=== PATIENT | female | born 1940 | race Caucasian/White ===

== ENCOUNTER 2017-04-22 12:16 | Inpatient (IN) | payer MEDICARE, OTHER ==
[2017-04-22] VITALS (24 sets, daily range): BP systolic 105–207; BP diastolic 53–86; PULSE 57–114; RESP 14–20; TEMP 97.8–98.3; O2SAT 94–100
[~2017-04-22] VITALS: Ht 165.1 cm; Wt 93.9 kg
[2017-04-22] MEDS ORDERED: PROPOFOL 500 MG/50 ML INJ 50 ML ONE (12:26)
[2017-04-22] MEDS ORDERED: SODIUM CHLORIDE 0.9% FLUSH 10 ML FLUSH IVF PRN (12:45)
[2017-04-22] MEDS ORDERED: PROPOFOL 1000 MG/100 ML INJ 100 ML IV SCH (12:45)
[2017-04-22] MEDS ORDERED: ETOMIDATE 20 MG/10 ML VIAL IV PUSH ONE (12:45)
[2017-04-22] MEDS ORDERED: FUROSEMIDE 100 MG/10 ML VIAL IVP ONE (12:45)
[2017-04-22] MEDS ORDERED: SUCCINYLCHOLINE CHLORIDE 200 MG/10 ML VIAL IV PUSH ONE (12:45)
[2017-04-22 13:09] LABS: AUTOMATED NEUTROPHIL # 7.7 TH/MM3 (1.8-7.7); BASOPHIL # 0.1 TH/MM3 (0-0.2); BASOPHIL % 1.2 % (0.0-2.0); EOSINOPHIL # 0.4 TH/MM3 (0-0.4); EOSINOPHIL % 3.6 % (0.0-4.0); HEMATOCRIT 38.1 % (35.0-46.0); HEMO FLAGS DIFF FINAL; LYMPH % 23.6 % (9.0-44.0); LYMPHOCYTE # 2.8 TH/MM3 (1.0-4.8); MEAN CELL VOLUME 94.9 FL (80.0-100.0); MEAN CORPUSCULAR HEMOGLOBIN 29.8 PG (27.0-34.0); MEAN CORPUSCULAR HGB CONC 31.5 % (32.0-36.0); MONO % 8.1 % (0.0-8.0); NEUT % 63.5 % (16.0-70.0); PLATELET COUNT 234 TH/MM3 (150-450); RED BLOOD COUNT 4.02 MIL/MM3 (4.00-5.30); RED CELL DISTRIBUTION WIDTH 14.9 % (11.6-17.2); WHITE BLOOD COUNT 12.1 TH/MM3 (4.0-11.0)
[2017-04-22 13:15] LABS: BACTERIA, URINE RARE /hpf; BLOOD, URINE NEG (NEG); COMMENT (UR) CULT NOT INDICATED; CULTURE IF INDICATED CULT NOT INDICATED; GLUCOSE,URINE 150 mg/dL (NEG); KETONE, URINE NEG (NEG); MUCUS URINE FEW /lpf (OCC); NITRITE,URINE NEG (NEG); PH, URINE 5.5 (5.0-8.5); URINE COLOR LIGHT-YELLOW (YELLW/STRAW)
[2017-04-22 13:19] LABS: INTERNATIONAL NORMALIZED RATIO 0.9 RATIO; PROTHROMBIN TIME - PATIENT 10.4 SEC (9.8-11.6)
--- NOTE | 2017-04-22 13:19 | RADRPT ---
EXAM DATE/TIME: 04/22/2017 12:32 [facility] COMPARISON: No previous studies available for comparison. INDICATIONS : Post intubation. MEDICAL HISTORY : Smoker. SURGICAL HISTORY : None. ENCOUNTER: Initial ACUITY: 1 day PAIN SCORE: Non-responsive. LOCATION: Bilateral chest FINDINGS: Patchy airspace disease is present in both lungs. Nasogastric tube is across the GE junction. The h eart is enlarged. CONCLUSION: Cardiomegaly with moderate patchy interstitial disease. Considerations would include both cardiogeni c pulmonary edema and an inflammatory process. Nahum Lambert MD FACR on April 22, 2017 at 13:05 Board Certified Radiologist. This report was verified electronically.
[2017-04-22 13:39] LABS: BLOOD GAS BASE EXCESS -3.4 mmol/L (-2-2); BLOOD GAS CARBOXYHEMOGLOBIN 1.1 % (0-4); BLOOD GAS HCO3 23 mmol/L (22-26); BLOOD GAS METHEMOGLOBIN 0.8 % (0-2); BLOOD GAS O2 HGB SATURATION 93 % (90-100); BLOOD GAS OXYGEN CONTENT 18.9 Vol % (12.0-20.0); BLOOD GAS PCO2 52 mmHg (38-42); BLOOD GAS PO2 87 mmHG (61-120); BLOOD GAS TOTAL HGB 14.4 G/DL (12.0-16.0); CRITICAL VALUE YES; OXYGEN DEVICE VENTILATOR; TEMP CORR TO 98.6
[2017-04-22 13:40] LABS: DRAW SITE LT RADIAL; FIO2 100 %; NUMBER OF ARTERIAL PUNCTURES 1; STAT YES; ULNAR PULSE PRESENT; VENT SETTINGS 16/450/PEEP10
[2017-04-22 13:41] LABS: CREATINE KINASE 54 U/L (26-192)
--- NOTE | 2017-04-22 13:43 | PD ---
HPI Chief Complaint: Respiratory Symptoms Time Seen by Provider: 12:39 Travel History International Travel<30 days: No Contact w/Intl Traveler<30days: No Traveled to known affect area: No History of Present Illness HPI 77-year-old female came to the emergency room with history of severe respiratory distress, impending respiratory failure. Her drove her into the ER. Oxygen saturation upon arrival was 59%. Patient was quickly put on nonrebreather for oxygen delivery. She was altered mental status at this point. Her gave most of the history. I decided to intubate her initially and then the history was obtained from her . As per him patient was getting her ultrasound done and he was in the waiting room. After she finished her the ultrasound and returned she appeared ashen in color. That' s when he decided to bring her to the emergency room. She was breathing heavily. said that she has history of cardiovascular disease but he doesn't exactly what. They recently moved from [place] and she does not have all her specialists here. She does not have any lung disease either and does not require oxygen at home. They recently had a long distance trip where they covered [address]. This was just last week as per him. She has never been intubated in the past as per him. [facility] Past Medical History Narrative Medical List of her past medical, surgical, social and family history was reviewed from the nurse's note. Medical History: Unable to Obtain ?: Not Past Surgical History Surgical History: Unable to Obtain Social History Alcohol Use: Yes Tobacco Use: Yes Substance Use: No Allergies-Medications (Allergen,Severity, Reaction): Coded Allergies: No Known Allergies (Unverified , 04/22/17) Comments Unavailable Reported Meds & Prescriptions Reported Meds & Active Scripts Active Reported Lantus Inj (Insulin Glargine) 100 Unit/Ml Inj 6 Unit SQ Co Q 10 (Coenzyme Q10 (Ubidecarenone)) 100 Mg Cap 200 Mg PO DAILY Synthroid (Levothyroxine Sodium) 175 Mcg Tab 175 Mcg PO DAILY Ranexa ER 12 HR (Ranolazine) 500 Mg Tab 500 Mg PO BID Pravastatin 80 Mg Tab 80 Mg PO DAILY Onglyza (Saxagliptin) 5 Mg Tab 5 Mg PO DAILY Nitrostat SL (Nitroglycerin) 0.4 Mg Subl 0.4 Mg SL DIRECTED PRN 1 tablet under the tongue as needed for chest pain. Repeat every 5 minutes for a total of 3 DOSES or call 911 if NO relief. Methyldopa 500 Mg Tab 500 Mg PO BID Klor-Con 10 (Potassium Chloride) 10 Meq Tab 10 Meq PO DAILY Lasix (Furosemide) 40 Mg Tab 40 Mg PO DAILY Plavix (Clopidogrel Bisulfate) 75 Mg Tab 75 Mg PO DAILY Cilostazol 100 Mg Tab 100 Mg PO BID Carvedilol 12.5 Mg Tab 12.5 Mg PO BID Benazepril (Benazepril HCl) 40 Mg Tab 20 Mg PO BID Amlodipine (Amlodipine Besylate) 10 Mg Tab 10 Mg PO DAILY Narrative Medication is trying to get her medication list. Awaiting for the nurse to do the medical reconciliation. Review of Systems Except as stated in HPI: all other systems reviewed are Neg Physical Exam Narrative GENERAL: Altered mental status, significant distress SKIN: Cool and diaphoretic HEAD: Atraumatic. Normocephalic. EYES: Pupils equal and round. No scleral icterus. No injection or drainage. ENT: No nasal bleeding or discharge. Mucous membranes pink and moist. NECK: Trachea midline. No JVD. CARDIOVASCULAR: Regular rate and rhythm. No murmur appreciated. RESPIRATORY: Respiratory effort. Decreased air entry bilaterally with coarse crackles GASTROINTESTINAL: Abdomen soft, non-tender, nondistended. Hepatic and splenic margins not palpable. MUSCULOSKELETAL: No obvious deformities. No clubbing. No cyanosis. No edema. NEUROLOGICAL: GCS of 8 PSYCHIATRIC: Unable to assess Data Data Last Documented VS Vital Signs Date Time Temp Pulse Resp B/P Pulse Ox O2 Delivery O2 Flow Rate FiO2 04/22/17 13:18 79 16 158/76 95 Ventilator 04/22/17 13:18 50 04/22/17 13:00 98.3 15 Orders Chest, Single Ap (04/22/17 ) Propofol 500 Mg/50 Ml Inj (Diprivan 500 (04/22/17 12:26) Complete Blood Count With Diff (04/22/17 12:39) Basic Metabolic Panel (Bmp) (04/22/17 12:39) B-Type Natriuretic Peptide (04/22/17 12:39) Prothrombin Time / Inr (Pt) (04/22/17 12:39) Magnesium (Mg) (04/22/17 12:39) Ckmb (Isoenzyme) Profile (04/22/17 12:39) Troponin I (04/22/17 12:39) Urinalysis - C+S If Indicated (04/22/17 12:39) Blood Culture (04/22/17 12:39) Iv Access Insert/Monitor (04/22/17 12:39) Electrocardiogram (04/22/17 12:39) Ecg Monitoring (04/22/17 12:39) Oximetry (04/22/17 12:39) Oxygen Administration (04/22/17 12:39) Ct Pulmonary Angiogram (04/22/17 12:39) Sodium Chloride 0.9% Flush (Ns Flush) (04/22/17 12:45) Furosemide Inj (Lasix Inj) (04/22/17 12:45) Succinylcholine Inj (Quelicin Inj) (04/22/17 12:45) Etomidate Inj (Amidate Inj) (04/22/17 12:45) Propofol 1000 Mg/100 Ml Inj (Diprivan 10 (04/22/17 12:45) ^ Infusion (04/22/17 12:43) RASS (04/22/17 12:43) Neurological Rass Scale SOFI.Q2H (04/22/17 12:43) Arterial Blood Gas (Abg) (04/22/17 13:29) Admit Order (Ed Use Only) (04/22/17 13:40) Labs Laboratory Tests Test 04/22/17 04/22/17 04/22/17 12:20 13:00 13:29 White Blood Count 12.1 TH/MM3 Red Blood Count 4.02 MIL/MM3 Hemoglobin 12.0 GM/DL Hematocrit 38.1 % Mean Corpuscular Volume 94.9 FL Mean Corpuscular Hemoglobin 29.8 PG Mean Corpuscular Hemoglobin 31.5 % Concent Red Cell Distribution Width 14.9 % Platelet Count 234 TH/MM3 Mean Platelet Volume 7.6 FL Neutrophils (%) (Auto) 63.5 % Lymphocytes (%) (Auto) 23.6 % Monocytes (%) (Auto) 8.1 % Eosinophils (%) (Auto) 3.6 % Basophils (%) (Auto) 1.2 % Neutrophils # (Auto) 7.7 TH/MM3 Lymphocytes # (Auto) 2.8 TH/MM3 Monocytes # (Auto) 1.0 TH/MM3 Eosinophils # (Auto) 0.4 TH/MM3 Basophils # (Auto) 0.1 TH/MM3 CBC Comment DIFF FINAL Differential Comment Prothrombin Time 10.4 SEC Prothromb Time International 0.9 RATIO Ratio Sodium Level 141 MEQ/L Potassium Level 4.5 MEQ/L Chloride Level 110 MEQ/L Carbon Dioxide Level 21.7 MEQ/L Anion Gap 9 MEQ/L Blood Urea Nitrogen 26 MG/DL Creatinine 1.39 MG/DL Estimat Glomerular Filtration 37 ML/MIN Rate Random Glucose 277 MG/DL Calcium Level 9.2 MG/DL Magnesium Level 2.6 MG/DL Total Creatine Kinase 54 U/L Troponin I LESS THAN 0.02 NG/ML B-Type Natriuretic Peptide 234 PG/ML Urine Color LIGHT-YELLOW Urine Turbidity CLEAR Urine pH 5.5 Urine Specific [place] 1.007 Urine Protein 30 mg/dL Urine Glucose (UA) 150 mg/dL Urine Ketones NEG mg/dL Urine Occult Blood NEG Urine Nitrite NEG Urine Bilirubin NEG Urine Urobilinogen LESS THAN 2.0 MG/DL Urine Leukocyte Esterase NEG Urine RBC 1 /hpf Urine WBC 1 /hpf Urine Bacteria RARE /hpf Urine Mucus FEW /lpf Microscopic Urinalysis Comment CULT NOT INDICATED Blood Gas Puncture Site LT RADIAL Blood Gas Patient Temperature 98.6 Blood Gas HCO3 23 mmol/L Blood Gas Base Excess -3.4 mmol/L Blood Gas Oxygen Saturation 93 % Arterial Blood pH 7.26 Arterial Blood Partial 52 mmHg Pressure CO2 Arterial Blood Partial 87 mmHG Pressure O2 Arterial Blood Oxygen Content 18.9 Vol % Arterial Blood 1.1 % Carboxyhemoglobin Arterial Blood Methemoglobin 0.8 % Blood Gas Hemoglobin 14.4 G/DL Oxygen Delivery Device VENTILATOR Blood Gas Ventilator Setting 16/450/PEEP10 Blood Gas Inspired Oxygen 100 % [facility] Medical Decision Making Medical Screen Exam Complete: Yes Emergency Medical Condition: Yes Medical Record Reviewed: Yes Interpretation(s) Twelve-lead EKG was reviewed by me. Normal sinus rhythm, normal axis, tachycardia, nonspecific ST-T wave changes. Heart rate of 110 bpm. Differential Diagnosis Respiratory failure, CHF exacerbation, COPD exacerbation, pneumonia, PE, pulmonary edema Narrative Course 1:56 PM patient was intubated by me. Please refer to my procedure note. Chest x-ray showed significant pulmonary edema. Patient was given IV Lasix. Currently she is on a propofol drip. Blood test result shows renal insufficiency and slightly elevated BNP. Blood pressure initially was high with systolic of 210. Currently it isn't 150s. I spoke with the rod mill tender and patient has been admitted to the ICU. I spoke with the and answered all his questions to the best of my ability. Based on the first ABG I did some been setting changes. A repeat ABG has been ordered and an hour. Critical Care Narrative Aggregate critical care time was 45 minutes. Time to perform other separately billable procedures was not included in the critical care time. My time did not include minutes spent treating any other patients simultaneously or on activities that did not directly contribute to the patient's treatment. The services I provided to this patient were to treat and/or prevent clinically significant deterioration that could result in: Respiratory failure, stabilizing airway, vent management I provided critical care services requiring my management, as noted below: Chart data review, documentation time, medication orders and management, vital sign assessments/reviewing monitor data, ordering and reviewing lab tests, ordering and interpreting/reviewing x-rays and diagnostic studies, care of the patient and discussion of the patient with the admitting physicians. Procedures Procedure Narrative After the risks and benefits were discussed the following procedure was performed: INTUBATION: The patient was put in optimal position for the procedure. Rapid sequence intubation was initiated by me using 20 milligrams of etomidate IV and 100 milligrams of succinylcholine IV. The patient was intubated with a 7.5 cuffed endotracheal tube. Tube placement was confirmed by visualization of the tube and balloon passing through the cords, capnometry and subsequent chest x-ray. Breath sounds were equal and well aerated bilaterally postintubation. No breath sounds over stomach. Patient tolerated procedure well. EKG Prior to Arrival: No Physician Communication Physician Communication Dr. Valladares Diagnosis Primary Impression: Respiratory failure Qualified Code: J96.01 - Acute respiratory failure with hypoxia Additional Impression: Flash pulmonary edema Admitting Information Admitting Physician Requests: Byron Phoenix MD Apr 22, 2017 13:43
[2017-04-22 13:44] LABS: ANION GAP 9 MEQ/L (5-15); BICARBONATE 21.7 MEQ/L (21.0-32.0); BLOOD UREA NITROGEN 26 MG/DL (7-18); CHLORIDE 110 MEQ/L (98-107); GLOMERULAR FILTRATION RATE 37 ML/MIN (>89); MAGNESIUM 2.6 MG/DL (1.5-2.5); POTASSIUM 4.5 MEQ/L (3.5-5.1); SODIUM (NA) 141 MEQ/L (136-145)
[2017-04-22] MEDS ORDERED: ONDANSETRON HCL 4 MG/2 ML VIAL IV PRN (14:30)
[2017-04-22] MEDS ORDERED: IODIXANOL 320 MG/ML 50 ML VIAL (for Rad CT) IV ONE (14:30)
[2017-04-22] MEDS ORDERED: CHLORHEXIDINE GLUCONATE 2 % 1 PACK (2 CLOTHS) TOP PRN (14:30)
[2017-04-22] MEDS ORDERED: SENNOSIDES 8.6 MG TAB PO PRN (14:30)
[2017-04-22] MEDS ORDERED: MISCELLANEOUS NURSING INFORMATION XX SCH (14:30)
[2017-04-22] MEDS ORDERED: MAGNESIUM HYDROXIDE SUSP 30 ML CUP PO PRN (14:30)
[2017-04-22] MEDS ORDERED: LACTULOSE SYRUP 20 GM/30 ML CUP PO PRN (14:30)
[2017-04-22] MEDS ORDERED: SODIUM CHLORIDE 0.9% FLUSH 10 ML FLUSH IV FLUSH PRN (14:30)
[2017-04-22] MEDS ORDERED: BISACODYL 10 MG SUPP RECTAL PRN (14:30)
[2017-04-22] MEDS ORDERED: GLUCAGON 1 MG/ML VIAL OTHER PRN (14:30)
[2017-04-22] MEDS ORDERED: DEXTROSE 50% IN WATER 50 ML VIAL(D50) IV PRN (14:30)
[2017-04-22] MEDS ORDERED: RESP: ALBUTEROL 2.5 MG/IPRATROPIUM 0.5 MG NEB (PRN) INH (14:30)
--- NOTE | 2017-04-22 14:56 | HHI.HP ---
HPI Service Critical Care Medicine Primary Care Physician No Primary Care Physician Admission Diagnosis respiratory failure, pulmonary edema Diagnosis: Travel History International Travel<30 Days: No Contact w/Intl Traveler <30 Da: No Traveled to Known Affected Are: No History of Present Illness 77-year-old female presented to the ED with a H/O severe respiratory distress, impending respiratory failure. Her drove her into the ER. Oxygen saturation upon arrival was 59%. Patient was quickly put on nonrebreather and was noted to have altered mental status. The patient was intubated in the ED, and a significant shunt was noted on the ABG. Also noted during intubation the patient was noted to have a large amount of pink frothy sputum and Lasix IV 60 mg was provided. The patient's reported that the patient was scheduled and reported for a pelvic ultrasound. She was required to drink large quantity of water. and he was in the waiting room. After the completion of the ultrasound and returned she appeared ashen in color, dyspneic. The patient's decided to bring her to the emergency room. said that she has history of cardiovascular disease but he doesn't exactly what, he did report that the patient does take Lasix. They recently moved from [place] and she does not have all her specialists here. She does not have any lung disease either and does not require oxygen at home. They recently had a long distance trip where they covered [address] miles [address]. Critical care medicine was consulted for management. Upon arrival to the ED the patient's on 100% O2, O2 saturation currently 98%. Patient had received 60 mg of Lasix IV with approximately 300 cc diuresis noted in [place]. The patient was on a propofol infusion for ventilator synchrony and comfort. The patient is scheduled to go for CT angiogram to rule out pulmonary embolus. History [facility] Past Medical History Narrative Medical List of her past medical, surgical, social and family history was reviewed from the nurse's note. Medical History: Unable to Obtain ?: Not Past Surgical History Surgical History: Unable to Obtain Social History Alcohol Use: Yes Tobacco Use: Yes Substance Use: No Allergies-Medications Allergies-Medications (Allergen,Severity, Reaction): Coded Allergies: UNOBTAINABLE (Unverified , 04/22/17) Comments Unavailable Narrative Medication is trying to get her medication list. Awaiting for the nurse to do the medical reconciliation. ROS Review of Systems Except as stated in HPI: all other systems reviewed are Neg Past Family Social History Allergies: Coded Allergies: No Known Allergies (Unverified , 04/22/17) Physical Exam Vital Signs Vital Signs Date Time Temp Pulse Resp B/P Pulse Ox O2 Delivery O2 Flow Rate FiO2 04/22/17 13:45 95 100 04/22/17 13:18 79 16 158/76 95 Ventilator 04/22/17 13:18 95 Ventilator 50 04/22/17 13:00 98.3 82 16 158/79 94 Ventilator 15 50 04/22/17 12:43 50 04/22/17 12:30 95 100 04/22/17 12:28 105 16 62 Room Air 04/22/17 12:28 108 16 207/85 04/22/17 12:24 114 16 185/79 94 Physical Exam GENERAL: Critically ill-appearing female intubated and sedated. Noted pink frothy secretions in the endotracheal tube SKIN: Warm and dry. HEAD: Atraumatic. Normocephalic. EYES: Pupils equal and round. No scleral icterus. No injection or drainage. ENT: No nasal bleeding or discharge. Mucous membranes pink and moist. NECK: Trachea midline. No JVD. CARDIOVASCULAR: Normal rate, regular rhythm. RESPIRATORY: No accessory muscle use. Clear to auscultation. Breath sounds equal bilaterally. GASTROINTESTINAL: Abdomen soft, protuberant, nondistended. No guarding. OGT in situ MUSCULOSKELETAL: Extremities without clubbing, cyanosis, or edema. No obvious deformities. NEUROLOGICAL: GCS 3T. Intubated and sedated Laboratory Laboratory Tests Test 04/22/17 04/22/17 04/22/17 12:20 13:00 13:29 White Blood Count 12.1 Red Blood Count 4.02 Hemoglobin 12.0 Hematocrit 38.1 Mean Corpuscular Volume 94.9 Mean Corpuscular Hemoglobin 29.8 Mean Corpuscular Hemoglobin 31.5 Concent Red Cell Distribution Width 14.9 Platelet Count 234 Mean Platelet Volume 7.6 Neutrophils (%) (Auto) 63.5 Lymphocytes (%) (Auto) 23.6 Monocytes (%) (Auto) 8.1 Eosinophils (%) (Auto) 3.6 Basophils (%) (Auto) 1.2 Neutrophils # (Auto) 7.7 Lymphocytes # (Auto) 2.8 Monocytes # (Auto) 1.0 Eosinophils # (Auto) 0.4 Basophils # (Auto) 0.1 CBC Comment DIFF FINAL Differential Comment Prothrombin Time 10.4 Prothromb Time International 0.9 Ratio Sodium Level 141 Potassium Level 4.5 Chloride Level 110 Carbon Dioxide Level 21.7 Anion Gap 9 Blood Urea Nitrogen 26 Creatinine 1.39 Estimat Glomerular Filtration 37 Rate Random Glucose 277 Calcium Level 9.2 Magnesium Level 2.6 Total Creatine Kinase 54 Troponin I LESS THAN 0.02 B-Type Natriuretic Peptide 234 Urine Color LIGHT-YELLOW Urine Turbidity CLEAR Urine pH 5.5 Urine Specific [place] 1.007 Urine Protein 30 Urine Glucose (UA) 150 Urine Ketones NEG Urine Occult Blood NEG Urine Nitrite NEG Urine Bilirubin NEG Urine Urobilinogen LESS THAN 2.0 Urine Leukocyte Esterase NEG Urine RBC 1 Urine WBC 1 Urine Bacteria RARE Urine Mucus FEW Microscopic Urinalysis Comment CULT NOT INDICATED Blood Gas Puncture Site LT RADIAL Blood Gas Patient Temperature 98.6 Blood Gas HCO3 23 Blood Gas Base Excess -3.4 Blood Gas Oxygen Saturation 93 Arterial Blood pH 7.26 Arterial Blood Partial 52 Pressure CO2 Arterial Blood Partial 87 Pressure O2 Arterial Blood Oxygen Content 18.9 Arterial Blood 1.1 Carboxyhemoglobin Arterial Blood Methemoglobin 0.8 Blood Gas Hemoglobin 14.4 Oxygen Delivery Device VENTILATOR Blood Gas Ventilator Setting 16/450/PEEP10 Blood Gas Inspired Oxygen 100 Date/Time Procedure Status Source Growth 04/22/17 12:20 Aerobic Blood Culture Received Blood Peripheral Pending 04/22/17 12:20 Anaerobic Blood Culture Received Blood Peripheral Pending Result Diagram: 04/22/17 1220 04/22/17 1220 Septic Shock Reassessment Heart: Regular rate and rhythm Lungs: Clear Peripheral Pulses: Bounding Right Radial Bounding Left Radial Assessment and Plan Assessment and Plan Critically ill-appearing female noted to have a significant ventilatory shunt. Unable to obtain cardiovascular history with patient with known disease process. Patient status post long trip greater than 1000 miles possible pulmonary embolus versus flash pulmonary edema. Prognosis is guarded at this time. was made aware of situation. Plan by systems: Neurologic: History of chronic back pain Propofol IV infusion for ventilator synchrony Sedation vacation per ICU protocol Maintain RASS score -2 Tylenol every 6 hours when necessary pain Respiratory: Pulmonary edema Rule out pulmonary embolus Hypoxia Ventilator bundle Retain head of bed greater than [address] pulmonary [id number] results Repeat ABG post diuretic Maintain current vent settings wean as tolerated Bronchodilators every 6 hours scheduled every 2 hours when necessary Follow-up chest x-ray results Cardiovascular: Cardiovascular disease? PAD Obtain EKG Follow up serial troponins Obtain echo Telemetry Reconcile meds when obtained by family member Renal: Renal insufficiency Maintain [place] catheter -- Strict I/Os FEN/GI: Monitor BMP Electrolyte replacement per ICU protocol Heme/ID: Monitor CBC Obtain cultures if clinically indicated Endocrine: Glucose monitoring per ICU protocol -- SSI Prophylaxis: GI Prophylaxis Famotidine twice a day DVT Prophylaxis -- SCDs Heparin twice a day Lines: PIV's x 2 Dispo: This patient remains critically ill with one or more organ systems which are or may become a threat to life. I have spent in excess of 35 minutes discontinuously in the care and management of this patient. This time is exclusive of procedures, and includes, but is not limited to, evaluation of the patient, review of the medical record, discussions with family, consultants, nursing staff, or respiratory therapy, and documentation in the medical record. Code Status Full Discussed Condition With ED RN, Dr. Blank, and at bedside. All questions answered. Plans to obtain patient's medication for reconciliation. Ileana Valladares MD Apr 22, 2017 14:56
[2017-04-22] MEDS: RESP: ALBUTEROL 2.5 MG/IPRATROPIUM 0.5 MG NEB (SCH) INH ×2 (15:26→22:00)
--- NOTE | 2017-04-22 15:53 | RADRPT ---
EXAM DATE/TIME: 04/22/2017 14:28 [facility] COMPARISON: CHEST SINGLE AP, April 22, 2017, 12:32. INDICATIONS : Evaluate for embolism. IV CONTRAST: 50 cc Visipaque (iodixanol) IV RADIATION DOSE: 23.31 CTDIvol (mGy) MEDICAL HISTORY : Non-responsive. SURGICAL HISTORY : Non-responsive. ENCOUNTER: Initial ACUITY: 1 day PAIN SCALE: Non-responsive LOCATION: Bilateral lower chest TECHNIQUE: Volumetric scanning of the chest was performed using a pulmonary embolism protocol MIP images were re constructed. Using automated exposure control and adjustment of the mA and/or kV according to patien t size, radiation dose was kept as low as reasonably achievable to obtain optimal diagnostic quality images. FINDINGS: PULMONARY ARTERIES: The pulmonary arteries are visualized to the proximal subsegmental level. No evidence for intralumina l filling defect to suggest pulmonary embolus. However, there and pulmonary artery is significantly d ilated consistent with pulmonary hypertension. LUNGS: Patient is intubated. There are patchy groundglass opacities in the upper lobes bilaterally and more dense patchy airspace consolidation in the lower lobes. PLEURAE: Small bilateral pleural effusions, right greater then left. MEDIASTINUM: Prominent subcarinal node measuring up to 2.8 x 2.6 cm. There are also prominent right hilar lymph no ryan. Additional mediastinal nodes are largely subcentimeter in size. There is a very small pericardia l effusion. Dense mitral bowel calcifications. There are also moderate to dense coronary calcificatio ns. MUSCULOSKELETAL: Within normal limits for patient age. MISCELLANEOUS: There is an NGT in the stomach. Visualized portions of the upper abdomen. low-density left adrenal ma ss measuring 1.7 x 2.1 cm consistent with adrenal adenoma. CONCLUSION: 1. No evidence for pulmonary artery embolism to the proximal subsegmental level. 2. Significant dilatation of the main pulmonary artery consistent with pulmonary hypertension. 3. Patchy groundglass opacities in the upper lobes bilaterally and more dense patchy airspace consoli dation in the lower lobes with trace bilateral small pleural effusions. Differential considerations i nclude cardiogenic pulmonary edema versus diffuse infectious/inflammatory process vs developing ARDS. 4. Nonspecific mediastinal and hilar adenopathy which may be infectious or inflammatory in etiology. 5. Dense coronary artery calcifications. 6. Probable 1.7 x 2.1 cm left adrenal adenoma. Clarence Philip MD on April 22, 2017 at 15:34 Board Certified Radiologist. This report was verified electronically.
[2017-04-22] MEDS: HEPARIN SODIUM - SQ 10,000 UNITS/ML VIAL SQ SCH (16:44)
[2017-04-22] MEDS: INSULIN NovoLIN REGULAR SUPPLEMENTAL SCALE SQ SCH ×2 (16:54→21:00)
--- NOTE | 2017-04-22 17:13 | ECHRPT ---
Indication: Essential (primary) hypertension CONCLUSIONS The left ventricular systolic function is low normal with an estimated ejection fraction in the rang e of 50- 55%. Wall thickness is normal. Normal left ventricular size. MAC mild mr mild mitral stenosis mild to mod aortic valve stenosis with avmg=18 mm hgThe left ventricular systolic function is low no rmal with an estimated ejection fraction in the range of 50-55%. Wall thickness is normal. Normal left ventricular size. Trileaflet aortic valve. Trace - Mild aortic valve stenosis. Mild mitral valve regurgitation. Mitral annular calcification is present. Structurally normal tricuspid valve. There is mild to moderate tricuspid valve regurgitation. The estimated pulmonary arterial pressure is 42 mmHg.Mild mitral valve regurgitation. Mitral annular calcification is present. There is mild to moderate tricuspid valve regurgitation. The estimated pulmonary arterial pressure is 42 mmHg. The pulmonary valve is not well visualized. BP: / HR: 58 Rhythm: Sinus MEASUREMENTS (Male / Female) Normal Values Technical Quality:Fair 2D ECHO LV Diastolic Diameter PLAX 4.3 cm 4.2 - 5.9 / 3.9 - 5.3 cm LV Systolic Diameter PLAX 3.4 cm IVS Diastolic Thickness 1.0 cm 0.6 - 1.0 / 0.6 - 0.9 cm LVPW Diastolic Thickness 1.0 cm 0.6 - 1.0 / 0.6 - 0.9 cm LV Relative Wall Thickness 0.5 LVOT Diameter 1.7 cm M-MODE Aortic Root Diameter MM 2.6 cm LA Systolic Diameter MM 4.4 cm LA Ao Ratio MM 1.7 AV Cusp Separation MM 1.6 cm DOPPLER AV Peak Velocity 287.8 cm/s AV Peak Gradient 33.1 mmHg AV Mean Gradient 18.0 mmHg AV Velocity Time Integral 70.2 cm AI Peak Velocity 194.0 cm/s AI Peak Gradient 15.1 mmHg AI Pressure Half Time 809.0 ms LVOT Peak Velocity 171.0 cm/s LVOT Peak Gradient 11.7 mmHg AV Area Cont Eq pk 1.3 cm MV Peak Velocity 164.0 cm/s MV Peak Gradient 10.8 mmHg MV Mean Velocity 96.8 cm/s MV Mean Gradient 4.0 mmHg MR Peak Velocity 358.5 cm/s MR Peak Gradient 51.4 mmHg Mitral E Point Velocity 125.0 cm/s Mitral A Point Velocity 39.5 cm/s Mitral E to A Ratio 3.2 LV E' Lateral Velocity 5.5 cm/s Mitral E to LV E' Lateral Ratio 22.9 LV E' Septal Velocity 4.7 cm/s Mitral E to LV E' Septal Ratio 26.7 TR Peak Velocity 301.0 cm/s TR Peak Gradient 36.2 mmHg PV Peak Velocity 105.0 cm/s PV Peak Gradient 4.4 mmHg FINDINGS LEFT VENTRICLE The left ventricular systolic function is low normal with an estimated ejection fraction in the rang e of 50- 55%. Wall thickness is normal. Normal left ventricular size. Trileaflet aortic valve. Trace - Mild aortic valve stenosis. Mild mitral valve regurgitation. Mitral annular calcification is present. Structurally normal tricuspid valve. There is mild to moderate tricuspid valve regurgitation. The estimated pulmonary arterial pressure is 42 mmHg. RIGHT VENTRICLE Normal right ventricular size and systolic function. LEFT ATRIUM The left atrial size is normal. RIGHT ATRIUM The right atrial size is normal. ATRIAL SEPTUM Normal atrial septal thickness without atrial level shunting by limited color doppler interrogation. AORTA The aortic root and proximal ascending aorta are normal in size on limited imaging. MITRAL VALVE Mild mitral valve regurgitation. Mitral annular calcification is present. AORTIC VALVE Trileaflet aortic valve. Trace - Mild aortic valve stenosis. TRICUSPID VALVE Structurally normal tricuspid valve. There is mild to moderate tricuspid valve regurgitation. The estimated pulmonary arterial pressure is 42 mmHg. PULMONARY VALVE The pulmonary valve is not well visualized. VESSELS The inferior vena cava is normal in size. PERICARDIUM No pericardial effusion. Zaki Jaramillo MD, FACC, [facility] (Electronically Signed) Final Date:22 April 2017 17:12
[2017-04-22] MEDS ORDERED: BENA40TA PO (17:25)
[2017-04-22] MEDS ORDERED: AMLO10TA2 PO (17:25)
[2017-04-22] MEDS ORDERED: LANTUS2P SQ (17:32)
[2017-04-22] MEDS ORDERED: METH500T PO (17:32)
[2017-04-22] MEDS ORDERED: POTA-243 PO (17:32)
[2017-04-22] MEDS ORDERED: PLAV75TA29 PO (17:32)
[2017-04-22] MEDS ORDERED: FURO1TAB60 PO (17:32)
[2017-04-22] MEDS ORDERED: ONGL5TAB PO (17:32)
[2017-04-22] MEDS ORDERED: CILO100T PO (17:32)
[2017-04-22] MEDS ORDERED: CO Q100C9 PO (17:32)
[2017-04-22] MEDS ORDERED: HYDR-3801 PO (17:32)
[2017-04-22] MEDS ORDERED: RANO500 PO (17:32)
[2017-04-22] MEDS ORDERED: PRAV80TA2 PO (17:32)
[2017-04-22] MEDS ORDERED: CARV12.52 PO (17:32)
[2017-04-22] MEDS ORDERED: SYNT175T PO (17:32)
[2017-04-22] MEDS ORDERED: NITR0.4S SL (17:32)
[2017-04-22] MEDS ORDERED: SODIUM CHLOR 0.9% 1000 ML INJ 1,000 ML IV SCH (18:30)
[2017-04-22] MEDS ORDERED: FUROSEMIDE 40 MG/4 ML VIAL IV PUSH ONE (18:30)
[2017-04-22] MEDS: PROPOFOL 1000 MG/100 ML INJ 100 ML IV SCH ×2 (19:49→22:39)
[2017-04-22] MEDS: DOCUSATE SODIUM 50 MG/SENNA 8.6 MG TAB PO SCH (21:00)
[2017-04-22] MEDS: FAMOTIDINE 20 MG TAB PO SCH (21:00)
[2017-04-22] MEDS: SODIUM CHLORIDE 0.9% FLUSH 10 ML FLUSH IV FLUSH SCH (21:00)
[2017-04-22] MEDS: CHLORHEXIDINE 0.12% (ORAL KIT) 15 ML CUP MT SCH (21:01)
[2017-04-23] VITALS (47 sets, daily range): BP systolic 110–200; BP diastolic 53–88; PULSE 60–81; RESP 16–38; TEMP 98.8–101.1; O2SAT 93–100
[2017-04-23] MEDS: LABETALOL HCL 100 MG/20 ML VIAL IV PRN ×2 (01:05→05:33)
[2017-04-23] MEDS: PROPOFOL 1000 MG/100 ML INJ 100 ML IV SCH ×3 (01:06→08:23)
[2017-04-23] MEDS: RESP: ALBUTEROL 2.5 MG/IPRATROPIUM 0.5 MG NEB (SCH) INH ×4 (03:43→19:35)
[2017-04-23] MEDS: CHLORHEXIDINE GLUCONATE 2 % 1 PACK (2 CLOTHS) TOP SCH (04:00)
[2017-04-23] MEDS: HEPARIN SODIUM - SQ 10,000 UNITS/ML VIAL SQ SCH ×2 (04:27→16:00)
[2017-04-23 04:33] LABS: BLOOD GAS BASE EXCESS -0.9 mmol/L (-2-2); BLOOD GAS CARBOXYHEMOGLOBIN 1.6 % (0-4); BLOOD GAS HCO3 23 mmol/L (22-26); BLOOD GAS METHEMOGLOBIN 1.4 % (0-2); BLOOD GAS O2 HGB SATURATION 95 % (90-100); BLOOD GAS OXYGEN CONTENT 12.7 Vol % (12.0-20.0); BLOOD GAS PCO2 38 mmHg (38-42); BLOOD GAS PO2 95 mmHg (61-120); BLOOD GAS TOTAL HGB 9.5 G/DL (12.0-16.0); CRITICAL VALUE NO; TEMP CORR TO 98.6
[2017-04-23 04:34] LABS: DRAW SITE RT RADIAL; FIO2 50 %; NUMBER OF ARTERIAL PUNCTURES 1; OXYGEN DEVICE VENTILATOR; STAT NO; ULNAR PULSE PRESENT; VENT SETTINGS AC18/500/+8
[2017-04-23 04:53] LABS: HEMATOCRIT 31.6 % (35.0-46.0); MEAN CORPUSCULAR HEMOGLOBIN 30.9 PG (27.0-34.0); PLATELET COUNT 154 TH/MM3 (150-450); RED BLOOD COUNT 3.48 MIL/MM3 (4.00-5.30); RED CELL DISTRIBUTION WIDTH 14.5 % (11.6-17.2); REVIEW FLAG FINAL; WHITE BLOOD COUNT 7.1 TH/MM3 (4.0-11.0)
[2017-04-23 05:23] LABS: BICARBONATE 25.3 MEQ/L (21.0-32.0); POTASSIUM 3.6 MEQ/L (3.5-5.1)
--- NOTE | 2017-04-23 05:28 | RADRPT ---
EXAM DATE/TIME: 04/23/2017 03:50 [facility] COMPARISON: CHEST SINGLE AP, April 22, 2017, 12:32. INDICATIONS : Shortness of breath, possible pulmonary disease. MEDICAL HISTORY : None. SURGICAL HISTORY : None. ENCOUNTER: Subsequent ACUITY: 2 days PAIN SCORE: Non-responsive. LOCATION: Bilateral chest FINDINGS: A single view of the chest demonstrates endotracheal tube in satisfactory position. NG enters stomach . Bilateral mostly basilar airspace disease improved from April 22. Small effusions. CONCLUSION: 1. Bilateral airspace disease improved from April 22. Small effusions. Endotracheal tube and nasogastr ic tube in satisfactory position. Caleb Cid MD on April 23, 2017 at 5:25 Board Certified Radiologist. This report was verified electronically.
[2017-04-23] MEDS: INSULIN NovoLIN REGULAR SUPPLEMENTAL SCALE SQ SCH ×4 (05:53→20:14)
[2017-04-23] MEDS ORDERED: hydrALAZINE HCL 20 MG/ML VIAL IV PUSH STA (07:55)
[2017-04-23] MEDS: DOCUSATE SODIUM 50 MG/SENNA 8.6 MG TAB PO SCH ×2 (08:24→20:09)
[2017-04-23] MEDS: FAMOTIDINE 20 MG TAB PO SCH ×2 (08:24→20:09)
[2017-04-23] MEDS: FUROSEMIDE 40 MG/4 ML VIAL IV PUSH SCH (08:24)
[2017-04-23] MEDS: CHLORHEXIDINE 0.12% (ORAL KIT) 15 ML CUP MT SCH ×2 (08:25→20:00)
[2017-04-23] MEDS: SODIUM CHLORIDE 0.9% FLUSH 10 ML FLUSH IV FLUSH SCH ×2 (08:25→21:00)
--- NOTE | 2017-04-23 09:04 | HHI.CCPN ---
Subjective Remarks/Hospital Course 77-year-old female presented to the ED with a H/O severe respiratory distress, impending respiratory failure. Her drove her into the ER. Oxygen saturation upon arrival was 59%. Patient was quickly put on nonrebreather and was noted to have altered mental status. The patient was intubated in the ED, and a significant shunt was noted on the ABG. Also noted during intubation the patient was noted to have a large amount of pink frothy sputum and Lasix IV 60 mg was provided. The patient's reported that the patient was scheduled and reported for a pelvic ultrasound. She was required to drink large quantity of water. and he was in the waiting room. After the completion of the ultrasound and returned she appeared ashen in color, dyspneic. The patient's decided to bring her to the emergency room. said that she has history of cardiovascular disease but he doesn't exactly what, he did report that the patient does take Lasix. They recently moved from [place] and she does not have all her specialists here. She does not have any lung disease either and does not require oxygen at home. They recently had a long distance trip where they covered [address]. Critical care medicine was consulted for management. Upon arrival to the ED the patient's on 100% O2, O2 saturation currently 98%. Patient had received 60 mg of Lasix IV with approximately 300 cc diuresis noted in Craig. The patient was on a propofol infusion for ventilator synchrony and comfort. The patient is scheduled to go for CT angiogram to rule out pulmonary embolus. Subjective: 04/23: Afebrile. CT angiogram ruled out pulmonary embolus. The patient received several doses of furosemide in the last 12 hours, noted improvement in chest x-ray. CPAP trials initiated this a.m. plan for possible extubation. The patient had an episode of hypertension early this a.m., covered with hydralazine. Discuss with to bring medication dosages in for reconciliation of medications. Objective Vital Signs Date Time Temp Pulse Resp B/P Pulse Ox O2 Delivery O2 Flow Rate FiO2 04/23/17 08:42 100 45 04/23/17 06:00 65 38 193/81 04/23/17 04:00 99.9 04/22/17 23:30 Mechanical Ventilator 04/22/17 13:00 15 Intake and Output 6/04/22/17 04/23/17 08:00 16:00 00:00 Intake Total 267 ml Output Total 2475 ml Balance -2208 ml Result Diagram: 04/23/17 0347 04/23/17 0347 Other Results Laboratory Tests Test 04/22/17 04/23/17 13:29 04:17 Blood Gas Puncture Site LT RADIAL RT RADIAL Blood Gas Patient Temperature 98.6 98.6 Blood Gas HCO3 23 mmol/L 23 mmol/L (22-26) (22-26) Blood Gas Base Excess -3.4 mmol/L -0.9 mmol/L (-2-2) (-2-2) Blood Gas Oxygen Saturation 93 % (90-100) 95 % (90-100) Arterial Blood pH 7.26 7.40 (7.380-7.420) (7.380-7.420) Arterial Blood Partial 52 mmHg (38-42) 38 mmHg (38-42) Pressure CO2 Arterial Blood Partial 87 mmHG 95 mmHg Pressure O2 (61-120) (61-120) Arterial Blood Oxygen Content 18.9 Vol % 12.7 Vol % (12.0-20.0) (12.0-20.0) Arterial Blood 1.1 % (0-4) 1.6 % (0-4) Carboxyhemoglobin Arterial Blood Methemoglobin 0.8 % (0-2) 1.4 % (0-2) Blood Gas Hemoglobin 14.4 G/DL 9.5 G/DL (12.0-16.0) (12.0-16.0) Oxygen Delivery Device VENTILATOR VENTILATOR Blood Gas Ventilator Setting 16/450/PEEP10 AC18/500/+8 Blood Gas Inspired Oxygen 100 % 50 % Imaging Last Impressions Chest X-Ray 04/23/17 0600 Signed Impressions: Service Date/Time: Sunday, April 23, 2017 03:50 - CONCLUSION: 1. Bilateral airspace disease improved from April 22. Small effusions. Endotracheal tube and nasogastric tube in satisfactory position. Caleb Cid MD CT Angiography 04/22/17 1239 Signed Impressions: Service Date/Time: Saturday, April 22, 2017 14:28 - CONCLUSION: 1. No evidence for pulmonary artery embolism to the proximal subsegmental level. 2. Significant dilatation of the main pulmonary artery consistent with pulmonary hypertension. 3. Patchy groundglass opacities in the upper lobes bilaterally and more dense patchy airspace consolidation in the lower lobes with trace bilateral small pleural effusions. Differential considerations include cardiogenic pulmonary edema versus diffuse infectious/inflammatory process vs developing ARDS. 4. Nonspecific mediastinal and hilar adenopathy which may be infectious or inflammatory in etiology. 5. Dense coronary artery calcifications. 6. Probable 1.7 x 2.1 cm left adrenal adenoma. Clarence Philip MD Objective Remarks GENERAL:Well developed well nourished female intubated, currently off sedation for CPAP trials. Responsive SKIN: Warm and dry. HEAD: Atraumatic. Normocephalic. EYES: Pupils equal and round. No scleral icterus. No injection or drainage. ENT: No nasal bleeding or discharge. Mucous membranes pink and moist. NECK: Trachea midline. No JVD. CARDIOVASCULAR: Normal rate, regular rhythm. RESPIRATORY: No accessory muscle use. Clear to auscultation B/L. Breath sounds equal bilaterally. GASTROINTESTINAL: Abdomen soft, protuberant, nondistended. No guarding. OGT in situ MUSCULOSKELETAL: Extremities without clubbing, cyanosis, or edema. No obvious deformities. NEUROLOGICAL: GCS 11 T. Follows commands of extremities 4 Urinary Catheter: Yes Craig insert reason: Measure Accurate Output Date of Insertion: Apr 22, 2017 A/P Assessment and Plan Neurologic: History of chronic back pain Propofol IV infusion all for CPAP trial GCS 11 T Maintain RASS score -2 Tylenol every 6 hours when necessary pain Respiratory: Pulmonary edema Rule out pulmonary embolus Hypoxia Ventilator bundle Retain head of bed greater than 30 04/23 CT pulmonary angiogram-negative for PE CPAP trials this a.m.-currently 15/8 FiO2 50% Maintain current vent settings wean as tolerated Bronchodilators every 6 hours scheduled every 2 hours when necessary 04/23 chest x-ray -improved Obtain SBT parameters, plan for extubation Cardiovascular: Cardiovascular disease PAD Hypertension Obtain EKG Follow up serial troponins 04/22 echo-mild MR, mild to moderate TR [id number] ejection fraction 50- 55%, PA P 42 mmHg Reconcile antihypertensive meds when obtained by family member 20 mg IV every 6 hours when necessary for systolic greater than 160 Renal: Renal insufficiency Maintain Craig catheter -- Strict I/Os FEN/GI: Monitor BMP Electrolyte replacement per ICU protocol Heme/ID: Monitor CBC 04/22-blood cultures-NGTD Endocrine: Glucose monitoring per ICU protocol -- SSI Prophylaxis: GI Prophylaxis Famotidine twice a day DVT Prophylaxis -- SCDs Heparin twice a day Lines: PIV's x 2 Dispo: Discussed with , and MANAGER ACQUISITION at bedside Level 3 Physician Ileana Santiago MD Apr 23, 2017 09:04
[2017-04-23] MEDS ORDERED: HYDR-3800 PO (09:51)
--- NOTE | 2017-04-23 13:35 | EKG ---
Date Performed: 04/22/2017 Time Performed: 12:28:12 PTAGE: 77 years EKG: SINUS TACHYCARDIA MINIMAL ST DEPRESSION ABNORMAL RHYTHM ECG WARNING: DATA QUALITY MAY AFFEC T INTERPRETATION NO PREVIOUS TRACING DOCTOR: Geraldo Mott Interpretating Date/Time 04/23/2017 13:32:20
[2017-04-23] MEDS: hydrALAZINE HCL 50 MG TAB PO SCH (16:57)
[2017-04-23] MEDS: LISINOPRIL 20 MG TAB PO SCH (20:08)
[2017-04-23] MEDS: METHYLDOPA 500 MG TAB PO SCH (20:09)
[2017-04-23] MEDS: CARVEDILOL 12.5 MG TAB PO SCH (20:09)
[2017-04-23] MEDS: CILOSTAZOL 100 MG TAB PO SCH (20:09)
[2017-04-23] MEDS: ACETAMINOPHEN 325 MG TAB PO PRN (20:13)
[2017-04-23] MEDS: RANOLAZINE 500 MG EXTENDED RELEASE TAB PO SCH (21:00)
[2017-04-24] VITALS (15 sets, daily range): BP systolic 96–162; BP diastolic 49–69; PULSE 64–74; RESP 15–20; TEMP 96.7–99.5; O2SAT 93–98
[2017-04-24] MEDS: RESP: ALBUTEROL 2.5 MG/IPRATROPIUM 0.5 MG NEB (SCH) INH ×4 (03:25→20:36)
[2017-04-24] MEDS: CHLORHEXIDINE GLUCONATE 2 % 1 PACK (2 CLOTHS) TOP SCH (03:39)
[2017-04-24] MEDS: HEPARIN SODIUM - SQ 10,000 UNITS/ML VIAL SQ SCH ×2 (04:45→16:00)
[2017-04-24] MEDS: LEVOTHYROXINE SODIUM 100 MCG TAB PO SCH (04:45)
[2017-04-24] MEDS: LEVOTHYROXINE SODIUM 75 MCG TAB PO SCH (04:45)
[2017-04-24 05:43] LABS: HEMATOCRIT 26.5 % (35.0-46.0); MEAN CELL VOLUME 91.6 FL (80.0-100.0); MEAN CORPUSCULAR HEMOGLOBIN 31.5 PG (27.0-34.0); MEAN CORPUSCULAR HGB CONC 34.4 % (32.0-36.0); PLATELET COUNT 141 TH/MM3 (150-450); RED BLOOD COUNT 2.89 MIL/MM3 (4.00-5.30); RED CELL DISTRIBUTION WIDTH 14.7 % (11.6-17.2); REVIEW FLAG FINAL; WHITE BLOOD COUNT 6.2 TH/MM3 (4.0-11.0)
[2017-04-24 06:04] LABS: BICARBONATE 28.5 MEQ/L (21.0-32.0); MAGNESIUM 2.1 MG/DL (1.5-2.5); POTASSIUM 3.3 MEQ/L (3.5-5.1)
[2017-04-24] MEDS: INSULIN NovoLIN REGULAR SUPPLEMENTAL SCALE SQ SCH ×4 (06:16→21:00)
[2017-04-24] MEDS: CHLORHEXIDINE 0.12% (ORAL KIT) 15 ML CUP MT SCH ×2 (07:33→19:40)
[2017-04-24] MEDS: FAMOTIDINE 20 MG TAB PO SCH ×2 (07:42→19:39)
[2017-04-24] MEDS: CARVEDILOL 12.5 MG TAB PO SCH ×2 (07:42→19:39)
[2017-04-24] MEDS: CLOPIDOGREL 75 MG TAB PO SCH (07:42)
[2017-04-24] MEDS: RANOLAZINE 500 MG EXTENDED RELEASE TAB PO SCH ×2 (07:42→19:40)
[2017-04-24] MEDS: DOCUSATE SODIUM 50 MG/SENNA 8.6 MG TAB PO SCH ×2 (07:42→19:39)
[2017-04-24] MEDS: PRAVASTATIN SOD 80 MG TAB PO SCH (07:42)
[2017-04-24] MEDS: SODIUM CHLORIDE 0.9% FLUSH 10 ML FLUSH IV FLUSH SCH ×2 (07:43→19:40)
[2017-04-24] MEDS: FUROSEMIDE 40 MG/4 ML VIAL IV PUSH SCH (07:43)
[2017-04-24] MEDS: CILOSTAZOL 100 MG TAB PO SCH ×2 (07:43→19:39)
[2017-04-24] MEDS: METHYLDOPA 500 MG TAB PO SCH ×2 (07:43→19:39)
[2017-04-24] MEDS: LISINOPRIL 20 MG TAB PO SCH ×2 (07:43→19:39)
[2017-04-24] MEDS: hydrALAZINE HCL 50 MG TAB PO SCH ×3 (07:46→17:05)
--- NOTE | 2017-04-24 09:29 | HHI.PR ---
Subjective Remarks on three liters of oxygen via N/C. however in no acute distress. denies chest pain. d/w the RN and no acute issues over night. Objective Vitals Vital Signs Date Time Temp Pulse Resp B/P Pulse Ox O2 Delivery O2 Flow Rate FiO2 04/24/17 08:00 73 04/24/17 08:00 98.4 73 15 149/66 93 04/24/17 07:00 92 Nasal Cannula 4.00 04/24/17 06:00 74 04/24/17 04:00 74 04/24/17 04:00 99.5 74 15 149/68 96 04/24/17 02:00 71 04/24/17 00:00 66 04/24/17 00:00 99.1 66 16 134/62 96 04/23/17 22:00 64 04/23/17 21:16 18 04/23/17 20:00 77 04/23/17 20:00 100.2 77 23 157/67 94 04/23/17 19:37 94 Nasal Cannula 3.00 04/23/17 19:00 96 Nasal Cannula 2.00 04/23/17 18:01 81 27 156/65 93 04/23/17 18:00 81 04/23/17 17:30 79 25 155/67 94 04/23/17 17:00 74 29 167/73 97 04/23/17 16:30 74 21 156/70 97 04/23/17 16:00 101.1 75 24 175/74 96 04/23/17 16:00 75 04/23/17 16:00 75 24 175/74 96 04/23/17 15:30 73 31 168/71 97 04/23/17 15:30 73 31 168/71 97 04/23/17 15:01 76 28 149/88 95 04/23/17 15:00 71 29 97 04/23/17 14:41 96 Nasal Cannula 3.00 04/23/17 14:30 75 29 158/69 97 04/23/17 14:00 75 19 149/67 98 04/23/17 14:00 75 04/23/17 13:37 74 24 167/69 98 04/23/17 13:31 78 20 186/76 97 04/23/17 13:00 80 25 157/67 96 04/23/17 12:30 72 16 154/67 98 04/23/17 12:00 98.8 72 16 151/68 97 04/23/17 12:00 72 04/23/17 12:00 72 16 151/68 97 04/23/17 11:30 72 19 146/65 96 04/23/17 11:11 97 Nasal Cannula 4.00 04/23/17 11:00 75 17 147/67 99 04/23/17 10:30 74 17 150/67 100 04/23/17 10:00 74 04/23/17 10:00 74 19 144/67 100 04/23/17 09:30 73 20 145/67 100 I/O 04/23/17 04/23/17 04/23/17 04/24/17 04/24/17 04/24/17 06:59 14:59 22:59 06:59 14:59 22:59 Intake Total 462 ml 679 ml 240 ml 360 ml Output Total 1275 ml 1850 ml 450 ml 600 ml Balance -813 ml -1171 ml -210 ml -240 ml Intake Oral 250 ml 240 ml 360 ml IV Total 402 ml 369 ml 0 ml Tube Feeding 0 ml Tube Irrigant 60 ml Other 60 ml Output Urine Total 1275 ml 1850 ml 450 ml 600 ml # Bowel Movements 0 0 0 0 Result Diagram: 04/24/17 0413 04/24/17 0413 Imaging Last Impressions Chest X-Ray 04/23/17 0600 Signed Impressions: Service Date/Time: Sunday, April 23, 2017 03:50 - CONCLUSION: 1. Bilateral airspace disease improved from April 22. Small effusions. Endotracheal tube and nasogastric tube in satisfactory position. Caleb Cid MD CT Angiography 04/22/17 1239 Signed Impressions: Service Date/Time: Saturday, April 22, 2017 14:28 - CONCLUSION: 1. No evidence for pulmonary artery embolism to the proximal subsegmental level. 2. Significant dilatation of the main pulmonary artery consistent with pulmonary hypertension. 3. Patchy groundglass opacities in the upper lobes bilaterally and more dense patchy airspace consolidation in the lower lobes with trace bilateral small pleural effusions. Differential considerations include cardiogenic pulmonary edema versus diffuse infectious/inflammatory process vs developing ARDS. 4. Nonspecific mediastinal and hilar adenopathy which may be infectious or inflammatory in etiology. 5. Dense coronary artery calcifications. 6. Probable 1.7 x 2.1 cm left adrenal adenoma. Clarence Philip MD Objective Remarks GENERAL: This is a well-nourished, well-developed patient, in no apparent distress. CARDIOVASCULAR: Regular rate and regular rhythm without murmurs, gallops, or rubs. RESPIRATORY: basal crackles GASTROINTESTINAL: Abdomen soft, non-tender, nondistended. Normal, active bowel sounds MUSCULOSKELETAL: Extremities without clubbing, cyanosis, or edema. NEURO: Alert & Oriented x4 to person, place, time, situation. Moves all ext x4 Procedures intubation/extubation Medications and IVs Current Medications Propofol (Diprivan 500 Mg/ 50 ml Inj) 50 ml @ As Directed STK-MED ONCE .ROUTE ; Start 04/22/17 at 12:26; Stop 04/22/17 at 12:27; Status DC Sodium Chloride (NS Flush) 2 ml UNSCH PRN IVF FLUSH AFTER USING IV ACCESS; Start 04/22/17 at 12:45; Stop 04/22/17 at 14:42; Status DC Furosemide (Lasix Inj) 60 mg ONCE ONCE IVP Last administered on 04/22/17 13: 07; Start 04/22/17 at 12:45; Stop 04/22/17 at 13:46; Status DC Succinylcholine Chloride (Quelicin Inj) 100 mg ONCE ONCE IV PUSH Last administered on 04/22/17 13:06; Start 04/22/17 at 12:45; Stop 04/22/17 at 13:46 ; Status DC Etomidate 20 mg 20 mg ONCE ONCE IV PUSH Last administered on 04/22/17 13:05; Start 04/22/17 at 12:45; Stop 04/22/17 at 13:46; Status DC Propofol (Diprivan 1000 Mg/100ml Inj) 100 ml @ 0 mls/hr TITRATE IV Last administered on 04/22/17 13:09; Start 04/22/17 at 12:45; Stop 04/22/17 at 14:42 ; Status DC Iodixanol (VISIPAQUE 320 INJ (Rad CT)) 50 ml STK-MED ONCE IV Last administered on 04/22/17 14:30; Start 04/22/17 at 14:30; Stop 04/22/17 at 14:31; Status DC Chlorhexidine Gluconate (Peridex 0.12% Liq) 15 ml BID@08,20 MT Last administered on 04/23/17 20:00; Start 04/22/17 at 20:00 Dextrose (D50w (Vial) Inj) 50 ml UNSCH PRN IV HYPOGLYCEMIA-SEE COMMENTS; Start 04/22/17 at 14:30 Glucagon (Glucagon Inj) 1 mg UNSCH PRN OTHER HYPOGLYCEMIA-SEE COMMENTS; Start 04/22/17 at 14:30 Insulin Human Regular (NovoLIN R SUPPLEMENTAL SCALE) 1 ACHS SLIDING SCALE SQ Last administered on 04/23/17 20:14; Start 04/22/17 at 16:00 Sodium Chloride (NS Flush) 2 ml UNSCH PRN IV FLUSH FLUSH AFTER USING IV ACCESS ; Start 04/22/17 at 14:30 Sodium Chloride (NS Flush) 2 ml BID IV FLUSH Last administered on 04/24/17 07: 43; Start 04/22/17 at 21:00 Acetaminophen (Tylenol) 650 mg Q6H PRN PO PAIN 1-2 AND/OR FEVER >101F Last administered on 04/23/17 20:13; Start 04/22/17 at 14:30 Famotidine (Pepcid) 20 mg Q12HR PO Last administered on 04/24/17 07:42; Start 04/22/17 at 21:00 Ondansetron HCl (Zofran Inj) 4 mg Q6H PRN IV NAUSEA OR VOMITING; Start at 14:30 Albuterol/ Ipratropium (Duoneb Neb) 1 ampule Q6HR NEB INH Last administered on 04/24/17 03:25; Start 04/22/17 at 16:00 Albuterol/ Ipratropium (Duoneb Neb) 1 ampule Q2HR NEB PRN INH WHEEZING; Start 04/22/17 at 14:30 Heparin Sodium (Porcine) (Heparin Inj) 5,000 units Q12H SQ Last administered on 04/24/17 04:45; Start 04/22/17 at 16:00 Miscellaneous Information 1 Q361D XX Last administered on 04/22/17 16:43; Start 04/22/17 at 14:30 Chlorhexidine Gluconate (Chlorhexidine 2% Cloth) 3 pack Taper DAILY@04 TOP Last administered on 04/24/17 03:39; Start 04/23/17 at 04:00; Stop 04/19/18 at 03:59 Chlorhexidine Gluconate (Chlorhexidine 2% Cloth) 3 pack UNSCH PRN TOP HYGIENIC CARE; Start 04/22/17 at 14:30 Senna/Docusate Sodium (Airam-Colace) 1 tab BID PO Last administered on 07:42; Start 04/22/17 at 21:00 Magnesium Hydroxide (Milk Of Magnesia Liq) 30 ml Q12H PRN PO MILD - MODERATE CONSTIPATION; Start 04/22/17 at 14:30 Sennosides (Senokot) 17.2 mg Q12H PRN PO MODERATE - SEVERE CONSTIPATION; Start 04/22/17 at 14:30 Bisacodyl (Dulcolax Supp) 10 mg DAILY PRN RECTAL SEVERE CONSITIPATION; Start at 14:30 Lactulose 30 ml 30 ml DAILY PRN PO SEVERE CONSITIPATION; Start 04/22/17 at 14: 30 Propofol (Diprivan 1000 Mg/100ml Inj) 100 ml @ 0 mls/hr TITRATE IV Last administered on 04/23/17 08:23; Start 04/22/17 at 14:30; Stop 04/23/17 at 15:30 ; Status DC Furosemide (Lasix Inj) 40 mg ONCE ONCE IV PUSH Last administered on 04/22/17 21:00; Start 04/22/17 at 18:30; Stop 04/22/17 at 19:24; Status DC Furosemide 40 mg 40 mg DAILY IV PUSH Last administered on 04/24/17 07:43; Start 04/23/17 at 09:00 Sodium Chloride (NS 1000 ml Inj) 1,000 ml @ 30 mls/hr Q24H IV Last administered on 04/22/17 21:25; Start 04/22/17 at 18:30; Stop 04/23/17 at 15:30 ; Status DC Labetalol HCl (Trandate Inj) 20 mg Q4H PRN IV SYS BP GREATER THAN 150 MMHG Last administered on 04/23/17 05:33; Start 04/23/17 at 01:00 Hydralazine HCl (Apresoline Inj) 20 mg NOW STAT IV PUSH Last administered on 08:01; Start 04/23/17 at 07:55; Stop 04/23/17 at 07:56; Status DC Amlodipine Besylate (Norvasc) 10 mg DAILY PO Last administered on 04/24/17 07: 42; Start 04/24/17 at 09:00 Carvedilol (Coreg) 12.5 mg BID PO Last administered on 04/24/17 07:42; Start 04/23/17 at 21:00 Cilostazol (Pletal) 100 mg BID PO Last administered on 04/24/17 07:43; Start 04/23/17 at 21:00 Clopidogrel Bisulfate (Plavix) 75 mg DAILY PO Last administered on 04/24/17 07 :42; Start 04/24/17 at 09:00 Hydralazine HCl (Apresoline) 50 mg TID PO Last administered on 04/24/17 07:46 ; Start 04/23/17 at 18:00 Methyldopa (Aldomet) 500 mg BID PO Last administered on 04/24/17 07:43; Start 04/23/17 at 21:00 Pravastatin Sodium (Pravachol) 80 mg DAILY PO Last administered on 04/24/17 07 :42; Start 04/24/17 at 09:00 Ranolazine (Ranexa) 500 mg BID PO Last administered on 04/24/17 07:42; Start 04/23/17 at 21:00 Lisinopril (Prinivil) 20 mg BID PO Last administered on 04/24/17 07:43; Start 04/23/17 at 21:00 Levothyroxine Sodium (Synthroid) 100 mcg DAILY@06 PO Last administered on 04:45; Start 04/24/17 at 06:00 Levothyroxine Sodium (Synthroid) 75 mcg DAILY@06 PO Last administered on 04:45; Start 04/24/17 at 06:00 Date of Insertion: Apr 22, 2017 A/P Assessment and Plan A/P Pulmonary edema- resolving acute respiratory failure due to pulmonary edema- s/p intubation/ extubation 04/23 CT pulmonary angiogram-negative for PE Bronchodilators every 6 hours scheduled every 2 hours when necessary continue diuretics 04/23 chest x-ray -improved will taper off oxygen Cardiovascular disease PAD Hypertension 04/22 echo-mild MR, mild to moderate TR [id number] ejection fraction 50- 55%, PA P 42 mmHg Reconciled antihypertensive meds acute kidney injury-improved dc keating cath. hypokalemia; will replace. diabetes mellitus; accu-check with SSI Prophylaxis: GI Prophylaxis Famotidine twice a day DVT Prophylaxis -- SCDs Heparin twice a day transfer to telemetry- consult PT. d/w the CARMEN. Alecia Waters MD Apr 24, 2017 09:29
[2017-04-24] MEDS ORDERED: POTASSIUM CHLORIDE 10 MEQ CONTROLLED RELEASE TAB PO ONE (09:30)
[2017-04-24] MEDS: ACETAMINOPHEN 325 MG TAB PO PRN (18:42)
[2017-04-24] MEDS ORDERED: SODIUM CHLORIDE 0.9% FLUSH 10 ML FLUSH IV FLUSH PRN (21:30)
[2017-04-24] MEDS ORDERED: ONDANSETRON HCL 4 MG/2 ML VIAL IV PRN (21:30)
[2017-04-24] MEDS ORDERED: BISACODYL 10 MG SUPP RECTAL PRN (21:45)
[2017-04-24] MEDS ORDERED: LACTULOSE SYRUP 20 GM/30 ML CUP PO PRN (21:45)
[2017-04-24] MEDS ORDERED: SENNOSIDES 8.6 MG TAB PO PRN (21:45)
[2017-04-24] MEDS ORDERED: RESP: ALBUTEROL 2.5 MG/IPRATROPIUM 0.5 MG NEB (PRN) INH (21:45)
[2017-04-24] MEDS ORDERED: MAGNESIUM HYDROXIDE SUSP 30 ML CUP PO PRN (21:45)
[2017-04-24] MEDS ORDERED: MISCELLANEOUS NURSING INFORMATION XX SCH (21:45)
[2017-04-24] MEDS ORDERED: CHLORHEXIDINE GLUCONATE 2 % 1 PACK (2 CLOTHS) TOP PRN (21:45)
[2017-04-24] MEDS ORDERED: ACETAMINOPHEN 325 MG TAB PO PRN (22:15)
[2017-04-25 03:59] VITALS: BP 102/52; PULSE 68; RESP 17; TEMP 96.8; O2SAT 94
[2017-04-25] MEDS: RESP: ALBUTEROL 2.5 MG/IPRATROPIUM 0.5 MG NEB (SCH) INH ×2 (04:00→09:00)
[2017-04-25] MEDS ORDERED: HEPARIN SODIUM - SQ 10,000 UNITS/ML VIAL SQ SCH (04:00)
[2017-04-25] MEDS: CHLORHEXIDINE GLUCONATE 2 % 1 PACK (2 CLOTHS) TOP SCH (04:25)
[2017-04-25] MEDS: LEVOTHYROXINE SODIUM 100 MCG TAB PO SCH (04:27)
[2017-04-25] MEDS: LEVOTHYROXINE SODIUM 75 MCG TAB PO SCH (04:27)
[2017-04-25] MEDS: INSULIN NovoLIN REGULAR SUPPLEMENTAL SCALE SQ SCH ×4 (06:31→21:02)
[2017-04-25 07:35] LABS: HEMATOCRIT 24.8 % (35.0-46.0)
[2017-04-25 07:50] VITALS: BP 109/54; PULSE 67; RESP 20; TEMP 98.5; O2SAT 98
[2017-04-25] MEDS: CHLORHEXIDINE 0.12% (ORAL KIT) 15 ML CUP MT SCH ×2 (08:00→20:00)
[2017-04-25 09:00] VITALS: O2SAT 97
[2017-04-25] MEDS: DOCUSATE SODIUM 50 MG/SENNA 8.6 MG TAB PO SCH ×2 (09:00→20:59)
[2017-04-25] MEDS: CARVEDILOL 12.5 MG TAB PO SCH ×2 (09:00→20:59)
--- NOTE | 2017-04-25 09:20 | HHI.PR ---
Subjective Remarks resting comfortably with no distress. has occasional cough. no new complaints. Objective Vitals Vital Signs Date Time Temp Pulse Resp B/P Pulse Ox O2 Delivery O2 Flow Rate FiO2 04/25/17 09:00 97 Nasal Cannula 2.50 04/25/17 07:50 98.5 67 20 109/54 98 04/25/17 03:59 96.8 68 17 102/52 94 04/24/17 23:50 98 Nasal Cannula 3.00 04/24/17 23:50 64 04/24/17 23:30 96.7 68 18 108/57 98 04/24/17 21:57 97.4 71 20 121/55 98 04/24/17 20:37 96 Nasal Cannula 3.00 04/24/17 19:00 92 Nasal Cannula 3.00 04/24/17 18:00 70 04/24/17 16:00 98.3 69 17 162/69 96 04/24/17 16:00 69 04/24/17 14:00 71 04/24/17 12:00 64 04/24/17 12:00 98.0 64 15 96/49 97 04/24/17 10:00 68 04/24/17 09:20 97 Nasal Cannula 3.00 I/O 04/24/17 04/24/17 04/24/17 04/25/17 04/25/17 04/25/17 07:00 15:00 23:00 07:00 15:00 23:00 Intake Total 360 ml 500 ml 240 ml 480 ml Output Total 600 ml 450 ml 200 ml Balance -240 ml 50 ml 240 ml 280 ml Intake Oral 360 ml 500 ml 240 ml 480 ml IV Total 0 ml 0 ml Output Urine Total 600 ml 450 ml 200 ml # Voids 1 # Bowel Movements 0 2 1 0 Result Diagram: 04/25/17 0654 04/24/17 0413 Imaging Last Impressions Chest X-Ray 04/23/17 0600 Signed Impressions: Service Date/Time: Sunday, April 23, 2017 03:50 - CONCLUSION: 1. Bilateral airspace disease improved from April 22. Small effusions. Endotracheal tube and nasogastric tube in satisfactory position. Caleb Cid MD CT Angiography 04/22/17 1239 Signed Impressions: Service Date/Time: Saturday, April 22, 2017 14:28 - CONCLUSION: 1. No evidence for pulmonary artery embolism to the proximal subsegmental level. 2. Significant dilatation of the main pulmonary artery consistent with pulmonary hypertension. 3. Patchy groundglass opacities in the upper lobes bilaterally and more dense patchy airspace consolidation in the lower lobes with trace bilateral small pleural effusions. Differential considerations include cardiogenic pulmonary edema versus diffuse infectious/inflammatory process vs developing ARDS. 4. Nonspecific mediastinal and hilar adenopathy which may be infectious or inflammatory in etiology. 5. Dense coronary artery calcifications. 6. Probable 1.7 x 2.1 cm left adrenal adenoma. Clarence Philip MD Objective Remarks GENERAL: This is a well-nourished, well-developed patient, in no apparent distress. CARDIOVASCULAR: Regular rate and regular rhythm without murmurs, gallops, or rubs. RESPIRATORY: basal crackles GASTROINTESTINAL: Abdomen soft, non-tender, nondistended. Normal, active bowel sounds MUSCULOSKELETAL: Extremities without clubbing, cyanosis, or edema. NEURO: Alert & Oriented x4 to person, place, time, situation. Moves all ext x4 Procedures intubation/extubation Medications and IVs Current Medications Propofol (Diprivan 500 Mg/ 50 ml Inj) 50 ml @ As Directed STK-MED ONCE .ROUTE ; Start 04/22/17 at 12:26; Stop 04/22/17 at 12:27; Status DC Sodium Chloride (NS Flush) 2 ml UNSCH PRN IVF FLUSH AFTER USING IV ACCESS; Start 04/22/17 at 12:45; Stop 04/22/17 at 14:42; Status DC Furosemide (Lasix Inj) 60 mg ONCE ONCE IVP Last administered on 04/22/17 13: 07; Start 04/22/17 at 12:45; Stop 04/22/17 at 13:46; Status DC Succinylcholine Chloride (Quelicin Inj) 100 mg ONCE ONCE IV PUSH Last administered on 04/22/17 13:06; Start 04/22/17 at 12:45; Stop 04/22/17 at 13:46 ; Status DC Etomidate 20 mg 20 mg ONCE ONCE IV PUSH Last administered on 04/22/17 13:05; Start 04/22/17 at 12:45; Stop 04/22/17 at 13:46; Status DC Propofol (Diprivan 1000 Mg/100ml Inj) 100 ml @ 0 mls/hr TITRATE IV Last administered on 04/22/17 13:09; Start 04/22/17 at 12:45; Stop 04/22/17 at 14:42 ; Status DC Iodixanol (VISIPAQUE 320 INJ (Rad CT)) 50 ml STK-MED ONCE IV Last administered on 04/22/17 14:30; Start 04/22/17 at 14:30; Stop 04/22/17 at 14:31; Status DC Chlorhexidine Gluconate (Peridex 0.12% Liq) 15 ml BID@08,20 MT Last administered on 04/24/17 19:40; Start 04/22/17 at 20:00 Dextrose (D50w (Vial) Inj) 50 ml UNSCH PRN IV HYPOGLYCEMIA-SEE COMMENTS; Start 04/22/17 at 14:30 Glucagon (Glucagon Inj) 1 mg UNSCH PRN OTHER HYPOGLYCEMIA-SEE COMMENTS; Start 04/22/17 at 14:30 Insulin Human Regular (NovoLIN R SUPPLEMENTAL SCALE) 1 ACHS SLIDING SCALE SQ Last administered on 04/25/17 06:31; Start 04/22/17 at 16:00 Sodium Chloride (NS Flush) 2 ml UNSCH PRN IV FLUSH FLUSH AFTER USING IV ACCESS ; Start 04/22/17 at 14:30; Status Cancel Sodium Chloride (NS Flush) 2 ml BID IV FLUSH Last administered on 04/24/17 19: 40; Start 04/22/17 at 21:00; Stop 04/24/17 at 20:41; Status DC Acetaminophen (Tylenol) 650 mg Q6H PRN PO PAIN 1-2 AND/OR FEVER >101F Last administered on 04/24/17 18:42; Start 04/22/17 at 14:30; Stop 04/24/17 at 20:41 ; Status DC Famotidine (Pepcid) 20 mg Q12HR PO Last administered on 04/24/17 19:39; Start 04/22/17 at 21:00; Stop 04/24/17 at 20:41; Status DC Ondansetron HCl (Zofran Inj) 4 mg Q6H PRN IV NAUSEA OR VOMITING; Start at 14:30; Status Cancel Albuterol/ Ipratropium (Duoneb Neb) 1 ampule Q6HR NEB INH Last administered on 04/25/17 09:00; Start 04/22/17 at 16:00 Albuterol/ Ipratropium (Duoneb Neb) 1 ampule Q2HR NEB PRN INH WHEEZING; Start 04/22/17 at 14:30; Status Cancel Heparin Sodium (Porcine) (Heparin Inj) 5,000 units Q12H SQ Last administered on 04/24/17 16:00; Start 04/22/17 at 16:00; Stop 04/24/17 at 20:41; Status DC Miscellaneous Information 1 Q361D XX Last administered on 04/22/17 16:43; Start 04/22/17 at 14:30; Stop 04/24/17 at 20:41; Status DC Chlorhexidine Gluconate (Chlorhexidine 2% Cloth) 3 pack Taper DAILY@04 TOP Last administered on 04/24/17 03:39; Start 04/23/17 at 04:00; Stop 04/24/17 at 21:31; Status DC Chlorhexidine Gluconate (Chlorhexidine 2% Cloth) 3 pack UNSCH PRN TOP HYGIENIC CARE; Start 04/22/17 at 14:30; Status Cancel Senna/Docusate Sodium (Airam-Colace) 1 tab BID PO Last administered on 19:39; Start 04/22/17 at 21:00; Stop 04/24/17 at 20:41; Status DC Magnesium Hydroxide (Milk Of Magnesia Liq) 30 ml Q12H PRN PO MILD - MODERATE CONSTIPATION; Start 04/22/17 at 14:30; Status Cancel Sennosides (Senokot) 17.2 mg Q12H PRN PO MODERATE - SEVERE CONSTIPATION; Start 04/22/17 at 14:30; Status Cancel Bisacodyl (Dulcolax Supp) 10 mg DAILY PRN RECTAL SEVERE CONSITIPATION; Start at 14:30; Status Cancel Lactulose 30 ml 30 ml DAILY PRN PO SEVERE CONSITIPATION; Start 04/22/17 at 14: 30; Status Cancel Propofol (Diprivan 1000 Mg/100ml Inj) 100 ml @ 0 mls/hr TITRATE IV Last administered on 04/23/17 08:23; Start 04/22/17 at 14:30; Stop 04/23/17 at 15:30 ; Status DC Furosemide (Lasix Inj) 40 mg ONCE ONCE IV PUSH Last administered on 04/22/17 21:00; Start 04/22/17 at 18:30; Stop 04/22/17 at 19:24; Status DC Furosemide 40 mg 40 mg DAILY IV PUSH Last administered on 04/24/17 07:43; Start 04/23/17 at 09:00 Sodium Chloride (NS 1000 ml Inj) 1,000 ml @ 30 mls/hr Q24H IV Last administered on 04/22/17 21:25; Start 04/22/17 at 18:30; Stop 04/23/17 at 15:30 ; Status DC Labetalol HCl (Trandate Inj) 20 mg Q4H PRN IV SYS BP GREATER THAN 150 MMHG Last administered on 04/23/17 05:33; Start 04/23/17 at 01:00 Hydralazine HCl (Apresoline Inj) 20 mg NOW STAT IV PUSH Last administered on 08:01; Start 04/23/17 at 07:55; Stop 04/23/17 at 07:56; Status DC Amlodipine Besylate (Norvasc) 10 mg DAILY PO Last administered on 04/24/17 07: 42; Start 04/24/17 at 09:00 Carvedilol (Coreg) 12.5 mg BID PO Last administered on 04/24/17 19:39; Start 04/23/17 at 21:00 Cilostazol (Pletal) 100 mg BID PO Last administered on 04/24/17 19:39; Start 04/23/17 at 21:00 Clopidogrel Bisulfate (Plavix) 75 mg DAILY PO Last administered on 04/24/17 07 :42; Start 04/24/17 at 09:00 Hydralazine HCl (Apresoline) 50 mg TID PO Last administered on 04/24/17 17:05 ; Start 04/23/17 at 18:00 Methyldopa (Aldomet) 500 mg BID PO Last administered on 04/24/17 19:39; Start 04/23/17 at 21:00 Pravastatin Sodium (Pravachol) 80 mg DAILY PO Last administered on 04/24/17 07 :42; Start 04/24/17 at 09:00 Ranolazine (Ranexa) 500 mg BID PO Last administered on 04/24/17 19:40; Start 04/23/17 at 21:00 Lisinopril (Prinivil) 20 mg BID PO Last administered on 04/24/17 19:39; Start 04/23/17 at 21:00 Levothyroxine Sodium (Synthroid) 100 mcg DAILY@06 PO Last administered on 04:27; Start 04/24/17 at 06:00 Levothyroxine Sodium (Synthroid) 75 mcg DAILY@06 PO Last administered on 04:27; Start 04/24/17 at 06:00 Potassium Chloride (KCl) 30 meq ONCE ONCE PO Last administered on 04/24/17 10 :08; Start 04/24/17 at 09:30; Stop 04/24/17 at 09:38; Status DC Sodium Chloride (NS Flush) 2 ml UNSCH PRN IV FLUSH FLUSH AFTER USING IV ACCESS ; Start 04/24/17 at 21:30 Ondansetron HCl (Zofran Inj) 4 mg Q6H PRN IV NAUSEA OR VOMITING; Start at 21:30 Albuterol/ Ipratropium (Duoneb Neb) 1 ampule Q2HR NEB PRN INH WHEEZING; Start 04/24/17 at 21:45 Chlorhexidine Gluconate (Chlorhexidine 2% Cloth) 3 pack UNSCH PRN TOP HYGIENIC CARE; Start 04/24/17 at 21:45 Magnesium Hydroxide (Milk Of Magnesia Liq) 30 ml Q12H PRN PO MILD - MODERATE CONSTIPATION; Start 04/24/17 at 21:45 Sennosides (Senokot) 17.2 mg Q12H PRN PO MODERATE - SEVERE CONSTIPATION; Start 04/24/17 at 21:45 Bisacodyl (Dulcolax Supp) 10 mg DAILY PRN RECTAL SEVERE CONSITIPATION; Start at 21:45 Lactulose (Lactulose Liq) 30 ml DAILY PRN PO SEVERE CONSITIPATION; Start at 21:45 Miscellaneous Information 1 Q361D XX ; Start 04/24/17 at 21:45 Chlorhexidine Gluconate (Chlorhexidine 2% Cloth) 3 pack Taper DAILY@04 TOP Last administered on 04/25/17 04:25; Start 04/25/17 at 04:00; Stop 04/21/18 at 03:59 Famotidine (Pepcid) 20 mg Q12HR PO ; Start 04/25/17 at 09:00 Heparin Sodium (Porcine) (Heparin Inj) 5,000 units Q12H SQ Last administered on 04/25/17 04:27; Start 04/25/17 at 04:00 Senna/Docusate Sodium (Airam-Colace) 1 tab BID PO ; Start 04/25/17 at 09:00 Acetaminophen (Tylenol) 650 mg Q6H PRN PO PAIN 1-2 AND/OR FEVER >101F; Start at 22:15 Date of Insertion: Apr 22, 2017 A/P Assessment and Plan A/P Pulmonary edema- resolving acute respiratory failure due to pulmonary edema- s/p intubation/ extubation 04/23 CT pulmonary angiogram-negative for PE continue neb treatment. continue diuretics 04/23 chest x-ray -improved Cardiovascular disease PAD Hypertension 04/22 echo-mild MR, mild to moderate TR [id number] ejection fraction 50- 55%, PA P 42 mmHg Reconciled antihypertensive meds acute kidney injury-improved dc'ed keating cath. anemia noted a gradual downward trend in H/H will check the stool for blood will check the iron panel H/H tomorrow hold subq heparin for now hypokalemia; replaced. diabetes mellitus; accu-check with SSI Prophylaxis: GI Prophylaxis Famotidine twice a day DVT Prophylaxis -- SCDs hold heparin due to anemia transfer to telemetry- consult PT. d/w the RN. Discharge Planning dc home tomorrow if stable with stable H/H. case management for [facility]. Alecia Waters MD Apr 25, 2017 09:20
--- NOTE | 2017-04-25 09:21 | HHI.FF ---
Face to Face Verification Diagnosis: (1) Flash pulmonary edema (2) Respiratory failure Physical Therapy Order: Evaluate and Treat Home Health Nursing Order: Medical education Signs/symptoms of disease process Nursing assessment with vital signs I have seen patient Ileana Orozco on 04/25/17. My clinical findings support the need for the requested home health care services because: Ltd mobility - disease progression I certify that my clinical findings support that this patient is homebound because: Poor cardiac reserve Alecia Waters MD Apr 25, 2017 09:21
[2017-04-25] MEDS: FUROSEMIDE 40 MG/4 ML VIAL IV PUSH SCH (10:16)
[2017-04-25] MEDS: CILOSTAZOL 100 MG TAB PO SCH ×2 (10:17→20:59)
[2017-04-25] MEDS: METHYLDOPA 500 MG TAB PO SCH ×2 (10:17→20:58)
[2017-04-25] MEDS: FAMOTIDINE 20 MG TAB PO SCH ×2 (10:18→20:59)
[2017-04-25] MEDS: LISINOPRIL 20 MG TAB PO SCH ×2 (10:18→20:58)
[2017-04-25] MEDS: PRAVASTATIN SOD 80 MG TAB PO SCH (10:18)
[2017-04-25] MEDS: hydrALAZINE HCL 50 MG TAB PO SCH ×3 (10:18→17:30)
[2017-04-25] MEDS: CLOPIDOGREL 75 MG TAB PO SCH (10:21)
[2017-04-25] MEDS: RANOLAZINE 500 MG EXTENDED RELEASE TAB PO SCH ×2 (10:21→21:00)
[2017-04-25] MEDS: POTASSIUM CHLORIDE 20 MEQ CONTROLLED RELEASE TAB PO SCH (10:22)
[2017-04-25 11:50] VITALS: BP 118/59; PULSE 68; RESP 20; TEMP 98; O2SAT 94
[2017-04-25 15:05] LABS: TRANSFERRIN IRON PROFILE 153 MG/DL (200-360)
[2017-04-25 15:08] LABS: FERRITIN 156 NG/ML (8-252)
[2017-04-25 15:50] VITALS: BP 117/58; PULSE 69; RESP 20; TEMP 98.6; O2SAT 97
--- NOTE | 2017-04-25 16:24 | MB ---
cc: SAÚL WHARTON DATE OF CONSULTATION: 04/25/2017 1938 REASON FOR CONSULTATION Shortness of breath, flash pulmonary edema and aortic stenosis. HISTORY OF PRESENT ILLNESS 77-year-old female with past medical history significant for hypertension, hyperlipidemia, rheumatic fever, heart murmur and pulmonary hypertension, that presented to the hospital with severe respiratory distress. The patient was intubated in the emergency department and she was admitted to the intensive care unit. She has unknown history of CAD but taking several cardiac medications at home. 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 She does not recall any recent cardiovascular workup. In the ICU she was treated for COPD exacerbation and HF. CT of the chest was negative for PE, however, it showed prominent pulmonary arteries suggestive of severe pulmonary hypertension. She did well in the intensive care unit. Cardiology has been consulted for further management and evaluation. An echo in the ER shows an EF of 60%. However, there is mild to moderate aortic stenosis. Currently she reports feeling better. She denies any shortness of breath, chest pain, fever, nausea, vomiting, diarrhea, chills, bleeding issues or noncompliance with medications. REVIEW OF SYSTEMS Negative except for what is mentioned in the HPI. PAST MEDICAL HISTORY 1. Hypertension. 2. Hyperlipidemia. 3. Rheumatic fever as a child. 4. Pulmonary hypertension. 5. Carotid artery disease status post CEA to left carotid. MEDICATIONS Cardiac home medications: 1. Norvasc 10 mg p.o. daily. 2. Coreg 12.5 mg p.o. b.i.d. 3. Cilostazol 100 mg p.o. b.i.d. 4. Plavix 75 mg p.o. daily. 5. Lasix 40 mg p.o. daily. 6. Hydralazine 50 mg p.o. t.i.d. 7. Nitroglycerin sublingual p.r.n. for chest pains. 8. Pravastatin 80 mg p.o. daily. 9. Ranexa 500 mg p.o. b.i.d. SOCIAL HISTORY Reports tobacco smoker. Reports alcohol use and denies illicit drug use. ALLERGIES NO KNOWN DRUG ALLERGIES. PHYSICAL EXAMINATION VITAL SIGNS: Temperature 98, respiratory rate 20, heart rate 68, blood pressure 118/59, O2 sat 94% on 2 liter nasal cannula. GENERAL: She is awake, alert, oriented and in no acute distress. NECK: No JVD or carotid bruits. HEART: Regular rate and rhythm. There is a 2/6 systolic murmur. No gallops or rubs. LUNGS: Clear to auscultation bilaterally. No wheezes, no rhonchi or rales. ABDOMEN: Soft, nontender, nondistended. Positive bowel sounds. EXTREMITIES: No cyanosis or edema. Pulses throughout. DATA Hemoglobin 8, hematocrit of 24.8, platelet count 141, INR 0.9. Electrolytes sodium 145, potassium 3.3, BUN 23, creatinine 1.13, troponin less than 0.02. BNP 234. Urinalysis shows significant amount of protein and glucose. Microbiology shows nothing has grown. Chest x-ray shows cardiomegaly with moderate patchy interstitial disease. CT of the chest is negative for pulmonary emboli. There is significant dilation of the main pulmonary artery consistent with pulmonary hypertension. Echocardiogram shows EF of 60%. There is mild to moderate aortic stenosis. EKG- sinus tachycardia with nonspecific ST changes. ASSESSMENT/PLAN 77-year-old female with above history and findings, consulted for evaluation of aortic stenosis and pulmonary edema. She remains afebrile and hemodynamically stable. The patient does not recall any cardiac history, however, on her list of home medications there is significant amount of cardiac medications for chronic ischemia, hypertension and hyperlipidemia. She denies any cardiovascular interventions in the past, however, she does have a carotid artery intervention. As far as the Aortic stenosis this appears to be moderate. She also has a heavy calcified mitral valve annulus but no severe MS or MR and EF is preserved. It is possible that the flash pulmonary edema might be to CAD however recently her hematocrit has started to trend down from 38 to 24 which in concerning if we are thinking about assessing her coronaries. There is also the possibility that her symptoms ar due to history of pulmonary hypertension which can be determined by a automotive collision estimator RECOMMENDATIONS 1. Assess source of bleeding/anemia per primary team 2. Lexiscan stress test when stable from ?Bleeding. This can be done as outpatient 3. Repeat limited 2D echo to re-assess the aortic valve. 4. Continue home cardiac medications, mindful of anemia need for DAPT 5. Get Cardiovascular records from [place] Case discuss with primary care team Saúl Wharton MD GENERAL OFFICE ASSISTANT/TLL /3:24 PM /3:51 PM [facility]
--- NOTE | 2017-04-25 16:42 | ECHRPT ---
Indication: aortic stenosis CONCLUSIONS Moderate thickening of the mitral valve leaflets. Calcification of both mitral valve leaflets. [id number] mitral valve regurgitation. Moderate mitral annular calcification. Mild mitral valve stenosis. The mitral valve area is 2.08 cm. Moderate thickening of the aortic valve leaflets. Mild aortic valve regurgitation. Mild to moderate aortic valve stenosis. Aortic valve mean gradient is 36mmHg. Aortic valve area is 1.21 cm. There is mild to moderate tricuspid valve regurgitation. There is estimated [id number] pulmonary hypertension present (62 mmHg). BP: / HR: Rhythm: Technical Quality: FINDINGS MITRAL VALVE Moderate thickening of the mitral valve leaflets. Calcification of both mitral valve leaflets. [id number] mitral valve regurgitation. Moderate mitral annular calcification. Mild mitral valve stenosis. The mitral valve area by Pressure Halftime Method is 2.08 cm. AORTIC VALVE Moderate thickening of the aortic valve leaflets. Mild aortic valve regurgitation. Mild to moderate aortic valve stenosis. Aortic valve mean gradient is 36mmHg. Max 66mmHg Aortic valve area is 1.21 cm. TRICUSPID VALVE There is mild to moderate tricuspid valve regurgitation. There is estimated [id number] pulmonary hypertension present (62 mmHg). Neptali Galeas MD (Electronically Signed) Final Date:25 April 2017 16:40
[2017-04-25 20:00] VITALS: BP 118/57; PULSE 75; RESP 16; TEMP 98.5; O2SAT 97
[2017-04-26] VITALS: BP 116/56; PULSE 77; RESP 16; TEMP 98.7; O2SAT 96
[2017-04-26 04:45] VITALS: BP 115/54; PULSE 72; RESP 16; TEMP 98; O2SAT 96
[2017-04-26] MEDS: CHLORHEXIDINE GLUCONATE 2 % 1 PACK (2 CLOTHS) TOP SCH (04:52)
[2017-04-26] MEDS: LEVOTHYROXINE SODIUM 100 MCG TAB PO SCH (05:45)
[2017-04-26] MEDS: LEVOTHYROXINE SODIUM 75 MCG TAB PO SCH (05:45)
[2017-04-26] MEDS: INSULIN NovoLIN REGULAR SUPPLEMENTAL SCALE SQ SCH ×4 (05:50→21:29)
[2017-04-26 06:57] LABS: HEMATOCRIT 24.4 % (35.0-46.0)
--- NOTE | 2017-04-26 07:46 | HHI.PR ---
Subjective Remarks resting comfortably with no distress. no chest pain . on oxygen via [place]. no new complaints. Objective Vitals Vital Signs Date Time Temp Pulse Resp B/P Pulse Ox O2 Delivery O2 Flow Rate FiO2 04/26/17 04:45 98.0 72 16 115/54 96 04/26/17 00:00 98.7 77 16 116/56 96 04/25/17 21:00 Nasal Cannula 2.00 04/25/17 20:00 98.5 75 16 118/57 97 04/25/17 15:50 98.6 69 20 117/58 97 04/25/17 14:45 2.00 04/25/17 11:50 98.0 68 20 118/59 94 04/25/17 09:00 97 Nasal Cannula 2.50 04/25/17 08:00 97 Nasal Cannula 2.00 04/25/17 07:50 98.5 67 20 109/54 98 I/O 04/25/17 04/25/17 04/25/17 04/26/17 04/26/17 04/26/17 07:00 15:00 23:00 07:00 15:00 23:00 Intake Total 480 ml 440 ml 480 ml 360 ml Output Total 200 ml 251 ml 150 ml 200 ml Balance 280 ml 189 ml 330 ml 160 ml Intake Oral 480 ml 440 ml 480 ml 360 ml Output Urine Total 200 ml 250 ml 150 ml 200 ml Stool Total 1 ml # Bowel Movements 0 Result Diagram: 04/26/17 0547 04/26/17 0547 Imaging Last Impressions Chest X-Ray 04/23/17 0600 Signed Impressions: Service Date/Time: Sunday, April 23, 2017 03:50 - CONCLUSION: 1. Bilateral airspace disease improved from April 22. Small effusions. Endotracheal tube and nasogastric tube in satisfactory position. Caleb Cid MD CT Angiography 04/22/17 1239 Signed Impressions: Service Date/Time: Saturday, April 22, 2017 14:28 - CONCLUSION: 1. No evidence for pulmonary artery embolism to the proximal subsegmental level. 2. Significant dilatation of the main pulmonary artery consistent with pulmonary hypertension. 3. Patchy groundglass opacities in the upper lobes bilaterally and more dense patchy airspace consolidation in the lower lobes with trace bilateral small pleural effusions. Differential considerations include cardiogenic pulmonary edema versus diffuse infectious/inflammatory process vs developing ARDS. 4. Nonspecific mediastinal and hilar adenopathy which may be infectious or inflammatory in etiology. 5. Dense coronary artery calcifications. 6. Probable 1.7 x 2.1 cm left adrenal adenoma. lCarence Philip MD Objective Remarks GENERAL: This is a well-nourished, well-developed patient, in no apparent distress. CARDIOVASCULAR: Regular rate and regular rhythm without murmurs, gallops, or rubs. RESPIRATORY: basal crackles GASTROINTESTINAL: Abdomen soft, non-tender, nondistended. Normal, active bowel sounds MUSCULOSKELETAL: Extremities without clubbing, cyanosis, or edema. NEURO: Alert & Oriented x4 to person, place, time, situation. Moves all ext x4 Procedures intubation/extubation Medications and IVs Current Medications Propofol (Diprivan 500 Mg/ 50 ml Inj) 50 ml @ As Directed STK-MED ONCE .ROUTE ; Start 04/22/17 at 12:26; Stop 04/22/17 at 12:27; Status DC Sodium Chloride (NS Flush) 2 ml UNSCH PRN IVF FLUSH AFTER USING IV ACCESS; Start 04/22/17 at 12:45; Stop 04/22/17 at 14:42; Status DC Furosemide (Lasix Inj) 60 mg ONCE ONCE IVP Last administered on 04/22/17 13: 07; Start 04/22/17 at 12:45; Stop 04/22/17 at 13:46; Status DC Succinylcholine Chloride (Quelicin Inj) 100 mg ONCE ONCE IV PUSH Last administered on 04/22/17 13:06; Start 04/22/17 at 12:45; Stop 04/22/17 at 13:46 ; Status DC Etomidate 20 mg 20 mg ONCE ONCE IV PUSH Last administered on 04/22/17 13:05; Start 04/22/17 at 12:45; Stop 04/22/17 at 13:46; Status DC Propofol (Diprivan 1000 Mg/100ml Inj) 100 ml @ 0 mls/hr TITRATE IV Last administered on 04/22/17 13:09; Start 04/22/17 at 12:45; Stop 04/22/17 at 14:42 ; Status DC Iodixanol (VISIPAQUE 320 INJ (Rad CT)) 50 ml STK-MED ONCE IV Last administered on 04/22/17 14:30; Start 04/22/17 at 14:30; Stop 04/22/17 at 14:31; Status DC Chlorhexidine Gluconate (Peridex 0.12% Liq) 15 ml BID@08,20 MT Last administered on 04/24/17 19:40; Start 04/22/17 at 20:00 Dextrose (D50w (Vial) Inj) 50 ml UNSCH PRN IV HYPOGLYCEMIA-SEE COMMENTS; Start 04/22/17 at 14:30 Glucagon (Glucagon Inj) 1 mg UNSCH PRN OTHER HYPOGLYCEMIA-SEE COMMENTS; Start 04/22/17 at 14:30 Insulin Human Regular (NovoLIN R SUPPLEMENTAL SCALE) 1 ACHS SLIDING SCALE SQ Last administered on 04/26/17 05:50; Start 04/22/17 at 16:00 Sodium Chloride (NS Flush) 2 ml UNSCH PRN IV FLUSH FLUSH AFTER USING IV ACCESS ; Start 04/22/17 at 14:30; Status Cancel Sodium Chloride (NS Flush) 2 ml BID IV FLUSH Last administered on 04/24/17 19: 40; Start 04/22/17 at 21:00; Stop 04/24/17 at 20:41; Status DC Acetaminophen (Tylenol) 650 mg Q6H PRN PO PAIN 1-2 AND/OR FEVER >101F Last administered on 04/24/17 18:42; Start 04/22/17 at 14:30; Stop 04/24/17 at 20:41 ; Status DC Famotidine (Pepcid) 20 mg Q12HR PO Last administered on 04/24/17 19:39; Start 04/22/17 at 21:00; Stop 04/24/17 at 20:41; Status DC Ondansetron HCl (Zofran Inj) 4 mg Q6H PRN IV NAUSEA OR VOMITING; Start at 14:30; Status Cancel Albuterol/ Ipratropium (Duoneb Neb) 1 ampule Q6HR NEB INH Last administered on 04/25/17 09:00; Start 04/22/17 at 16:00; Stop 04/25/17 at 09:23; Status DC Albuterol/ Ipratropium (Duoneb Neb) 1 ampule Q2HR NEB PRN INH WHEEZING; Start 04/22/17 at 14:30; Status Cancel Heparin Sodium (Porcine) (Heparin Inj) 5,000 units Q12H SQ Last administered on 04/24/17 16:00; Start 04/22/17 at 16:00; Stop 04/24/17 at 20:41; Status DC Miscellaneous Information 1 Q361D XX Last administered on 04/22/17 16:43; Start 04/22/17 at 14:30; Stop 04/24/17 at 20:41; Status DC Chlorhexidine Gluconate (Chlorhexidine 2% Cloth) 3 pack Taper DAILY@04 TOP Last administered on 04/24/17 03:39; Start 04/23/17 at 04:00; Stop 04/24/17 at 21:31; Status DC Chlorhexidine Gluconate (Chlorhexidine 2% Cloth) 3 pack UNSCH PRN TOP HYGIENIC CARE; Start 04/22/17 at 14:30; Status Cancel Senna/Docusate Sodium (Airam-Colace) 1 tab BID PO Last administered on 19:39; Start 04/22/17 at 21:00; Stop 04/24/17 at 20:41; Status DC Magnesium Hydroxide (Milk Of Magnesia Liq) 30 ml Q12H PRN PO MILD - MODERATE CONSTIPATION; Start 04/22/17 at 14:30; Status Cancel Sennosides (Senokot) 17.2 mg Q12H PRN PO MODERATE - SEVERE CONSTIPATION; Start 04/22/17 at 14:30; Status Cancel Bisacodyl (Dulcolax Supp) 10 mg DAILY PRN RECTAL SEVERE CONSITIPATION; Start at 14:30; Status Cancel Lactulose 30 ml 30 ml DAILY PRN PO SEVERE CONSITIPATION; Start 04/22/17 at 14: 30; Status Cancel Propofol (Diprivan 1000 Mg/100ml Inj) 100 ml @ 0 mls/hr TITRATE IV Last administered on 04/23/17 08:23; Start 04/22/17 at 14:30; Stop 04/23/17 at 15:30 ; Status DC Furosemide (Lasix Inj) 40 mg ONCE ONCE IV PUSH Last administered on 04/22/17 21:00; Start 04/22/17 at 18:30; Stop 04/22/17 at 19:24; Status DC Furosemide 40 mg 40 mg DAILY IV PUSH Last administered on 04/25/17 10:16; Start 04/23/17 at 09:00 Sodium Chloride (NS 1000 ml Inj) 1,000 ml @ 30 mls/hr Q24H IV Last administered on 04/22/17 21:25; Start 04/22/17 at 18:30; Stop 04/23/17 at 15:30 ; Status DC Labetalol HCl (Trandate Inj) 20 mg Q4H PRN IV SYS BP GREATER THAN 150 MMHG Last administered on 04/23/17 05:33; Start 04/23/17 at 01:00 Hydralazine HCl (Apresoline Inj) 20 mg NOW STAT IV PUSH Last administered on 08:01; Start 04/23/17 at 07:55; Stop 04/23/17 at 07:56; Status DC Amlodipine Besylate (Norvasc) 10 mg DAILY PO Last administered on 04/25/17 10: 21; Start 04/24/17 at 09:00 Carvedilol (Coreg) 12.5 mg BID PO Last administered on 04/25/17 20:59; Start 04/23/17 at 21:00 Cilostazol (Pletal) 100 mg BID PO Last administered on 04/25/17 20:59; Start 04/23/17 at 21:00 Clopidogrel Bisulfate (Plavix) 75 mg DAILY PO Last administered on 04/25/17 10 :21; Start 04/24/17 at 09:00 Hydralazine HCl (Apresoline) 50 mg TID PO Last administered on 04/25/17 17:30 ; Start 04/23/17 at 18:00 Methyldopa (Aldomet) 500 mg BID PO Last administered on 04/25/17 20:58; Start 04/23/17 at 21:00 Pravastatin Sodium (Pravachol) 80 mg DAILY PO Last administered on 04/25/17 10 :18; Start 04/24/17 at 09:00 Ranolazine (Ranexa) 500 mg BID PO Last administered on 04/25/17 21:00; Start 04/23/17 at 21:00 Lisinopril (Prinivil) 20 mg BID PO Last administered on 04/25/17 20:58; Start 04/23/17 at 21:00 Levothyroxine Sodium (Synthroid) 100 mcg DAILY@06 PO Last administered on 05:45; Start 04/24/17 at 06:00 Levothyroxine Sodium (Synthroid) 75 mcg DAILY@06 PO Last administered on 05:45; Start 04/24/17 at 06:00 Potassium Chloride (KCl) 30 meq ONCE ONCE PO Last administered on 04/24/17 10 :08; Start 04/24/17 at 09:30; Stop 04/24/17 at 09:38; Status DC Sodium Chloride (NS Flush) 2 ml UNSCH PRN IV FLUSH FLUSH AFTER USING IV ACCESS ; Start 04/24/17 at 21:30 Ondansetron HCl (Zofran Inj) 4 mg Q6H PRN IV NAUSEA OR VOMITING; Start at 21:30 Albuterol/ Ipratropium (Duoneb Neb) 1 ampule Q2HR NEB PRN INH WHEEZING; Start 04/24/17 at 21:45 Chlorhexidine Gluconate (Chlorhexidine 2% Cloth) 3 pack UNSCH PRN TOP HYGIENIC CARE; Start 04/24/17 at 21:45 Magnesium Hydroxide (Milk Of Magnesia Liq) 30 ml Q12H PRN PO MILD - MODERATE CONSTIPATION; Start 04/24/17 at 21:45 Sennosides (Senokot) 17.2 mg Q12H PRN PO MODERATE - SEVERE CONSTIPATION; Start 04/24/17 at 21:45 Bisacodyl (Dulcolax Supp) 10 mg DAILY PRN RECTAL SEVERE CONSITIPATION; Start at 21:45 Lactulose (Lactulose Liq) 30 ml DAILY PRN PO SEVERE CONSITIPATION; Start at 21:45 Miscellaneous Information 1 Q361D XX ; Start 04/24/17 at 21:45 Chlorhexidine Gluconate (Chlorhexidine 2% Cloth) 3 pack Taper DAILY@04 TOP Last administered on 04/26/17 04:52; Start 04/25/17 at 04:00; Stop 04/21/18 at 03:59 Famotidine (Pepcid) 20 mg Q12HR PO Last administered on 04/25/17 20:59; Start 04/25/17 at 09:00 Heparin Sodium (Porcine) (Heparin Inj) 5,000 units Q12H SQ Last administered on 04/25/17 04:27; Start 04/25/17 at 04:00; Status Hold Senna/Docusate Sodium (Airam-Colace) 1 tab BID PO ; Start 04/25/17 at 09:00 Acetaminophen (Tylenol) 650 mg Q6H PRN PO PAIN 1-2 AND/OR FEVER >101F; Start at 22:15 Potassium Chloride (KCl) 20 meq DAILY PO Last administered on 04/25/17 10:22; Start 04/25/17 at 09:30 Date of Insertion: Apr 22, 2017 A/P Assessment and Plan A/P Pulmonary edema- improved. acute respiratory failure due to pulmonary edema- s/p intubation/ extubation 04/23 CT pulmonary angiogram-negative for PE continue neb treatment. continue diuretics 04/23 chest x-ray -improved walk test performed and patient needs home oxygen; will consult case management. Cardiovascular disease PAD Hypertension aortic stenosis 04/22 echo-mild MR, mild to moderate TR [id number] ejection fraction 50- 55%, PA P 42 mmHg cardiology evaluation appreciated. Reconciled antihypertensive meds acute kidney injury-improved anemia noted a gradual downward trend in H/H stool for blood pending. iron panel reviewed. H/H tomorrow hold subq heparin for now consider GI evaluation after discussion with her manager basketball hypokalemia; replaced. diabetes mellitus; accu-check with SSI Prophylaxis: GI Prophylaxis Famotidine twice a day DVT Prophylaxis -- SCDs hold heparin due to anemia continue PT. Discharge Planning case management for HHC and home oxygen. not ready for discharge today. Alecia Waters MD Apr 26, 2017 07:46
[2017-04-26] MEDS ORDERED: OXYGENDME NAS.CANULA (07:47)
--- NOTE | 2017-04-26 07:48 | HHI.FF ---
Face to Face Verification Diagnosis: (1) Flash pulmonary edema (2) Respiratory failure Physical Therapy Order: Evaluate and Treat Home Health Nursing Order: Medical education Signs/symptoms of disease process Oxygen administration education Medication education-adverse effect Nursing assessment with vital signs I have seen patient Ileana Orozco on 04/26/17. My clinical findings support the need for the requested home health care services because: Ltd mobility - disease progression Patient has SOB I certify that my clinical findings support that this patient is homebound because: Poor cardiac reserve Alecia Waters MD Apr 26, 2017 07:48
[2017-04-26 08:00] VITALS: BP 117/52; PULSE 65; RESP 18; TEMP 96.7; O2SAT 97
[2017-04-26] MEDS: CHLORHEXIDINE 0.12% (ORAL KIT) 15 ML CUP MT SCH ×2 (08:00→19:16)
[2017-04-26] MEDS: PRAVASTATIN SOD 80 MG TAB PO SCH (08:47)
[2017-04-26] MEDS: CILOSTAZOL 100 MG TAB PO SCH ×2 (08:47→21:27)
[2017-04-26] MEDS: LISINOPRIL 20 MG TAB PO SCH ×2 (08:48→21:27)
[2017-04-26] MEDS: RANOLAZINE 500 MG EXTENDED RELEASE TAB PO SCH ×2 (08:49→21:26)
[2017-04-26] MEDS: POTASSIUM CHLORIDE 20 MEQ CONTROLLED RELEASE TAB PO SCH (08:49)
[2017-04-26] MEDS: FUROSEMIDE 40 MG/4 ML VIAL IV PUSH SCH (08:50)
[2017-04-26] MEDS: FAMOTIDINE 20 MG TAB PO SCH ×2 (08:50→21:27)
[2017-04-26] MEDS: hydrALAZINE HCL 50 MG TAB PO SCH ×3 (08:50→17:50)
[2017-04-26] MEDS: METHYLDOPA 500 MG TAB PO SCH ×2 (08:50→21:27)
[2017-04-26] MEDS: CLOPIDOGREL 75 MG TAB PO SCH ×3 (08:52→09:00)
[2017-04-26] MEDS: CARVEDILOL 12.5 MG TAB PO SCH ×2 (08:53→21:27)
[2017-04-26] MEDS: DOCUSATE SODIUM 50 MG/SENNA 8.6 MG TAB PO SCH ×2 (08:54→21:00)
[2017-04-26 12:18] VITALS: BP 120/55; PULSE 67; RESP 16; TEMP 97.8; O2SAT 97
--- NOTE | 2017-04-26 15:15 | HHI.PR ---
Addendum To [facility] Progress Not Reason for addendum: Additonal documentation (d/w 's PA( her associate consulting engineer)- the patient has beeb being evaluated for iron deficiency anemia and had iron transfusion before. no reported recent GI work-up. will consult GI .) Alecia Waters MD Apr 26, 2017 15:15
[2017-04-26 16:00] VITALS: BP 112/48; PULSE 65; RESP 18; TEMP 97; O2SAT 92
--- NOTE | 2017-04-26 17:47 | MB ---
cc: MACIEJ WANG MOHAMMADREZA MD DATE OF CONSULTATION: 04/26/2017 REASON FOR CONSULTATION: Anemia. ATTENDING PHYSICIAN: Dr. Waters. HISTORY OF PRESENT ILLNESS: This patient is a 77 year-old woman who has been in the hospital because of severe respiratory distress leading to respiratory failure. She was treated initially in the ICU and she has since recovered. She did have pulmonary edema at that time. She has been found to be anemic and her hemoglobin did drop significantly from the time of admission five days ago until present time, although most of the drop was over the first 24 hours. There is no reported acute GI hemorrhaging. No hematemesis or melena. The patient does not remember much of her hospitalization for the first several days. She does report that she has a history of anemia dating back to 2012 when she was found to be iron deficient and she was given iron infusions by her unit secretary who was at a loss to explain why she was losing iron. She did have a colonoscopy but she does not remember having an EGD in the past. The colonoscopy did not show any serious problem but she might have had a few polyps and she feels that that was performed less than 10 years ago. She denies any abdominal pain or discomfort, nausea, vomiting, acid reflux symptoms, dysphagia. PAST MEDICAL HISTORY: Positive for valvular heart disease for which she is expected to have valve replacement at some point in her life. PAST SURGICAL HISTORY: Positive for carotid endarterectomy on the left side and placement of a stent in the arteries to her left leg. She also has had removal of a meningioma. Otherwise past medical history is essentially unremarkable. SOCIAL HISTORY: She does smoke and drink alcoholic beverages. FAMILY HISTORY: Noncontributory. REVIEW OF SYSTEMS: The patient reports some minor weakness as a result of her hospitalization but no localized weakness. She denies any headache, sore throat, ear ache, chest pain or shortness of breath today. Otherwise complete review of systems is negative. PHYSICAL EXAMINATION: She is a well-appearing, elderly white female in no apparent distress. She is alert and oriented x 3. Mood is normal and appropriate. Respirations are easy and unlabored. LUNGS: Clear. HEART: Heart sounds are notable for a loud systolic murmur. ABDOMEN: Soft, nontender. Bowel sounds are normal. EXTREMITIES: Without cyanosis, clubbing or edema. NEUROLOGIC: Grossly normal. Mood is normal. LABORATORY DATA: On admission, white blood cell count is 12,000, hematocrit 38.1. Currently hematocrit is 24.4. Platelet count on admission 234, now is 141. Chemistry shows creatinine of 1.2, now improved to 1.13. Iron is 27, TIBC 214 with a 12.6% saturation. IMAGING STUDIES: CT arteriogram was negative for pulmonary embolism but there was evidence of pulmonary hypertension. Also she had a 1.7 cm left adrenal adenoma. MEDICATIONS: Plavix and has been receiving that in the hospital. IMPRESSION: 1. Iron deficiency anemia which appears to be longstanding although more acute during this hospitalization without evidence of GI bleeding. 2. Valvular heart disease. 3. Peripheral vascular disease with a stent in the femoral artery and history of carotid endarterectomy. 4. Currently taking Plavix. 5. The patient has never had an EGD to her knowledge. RECOMMENDATIONS: 1. EGD would definitely be advised and possibly a colonoscopy at this point since it has been over five years. This could be performed as an outpatient given the long duration of her iron deficiency anemia. She could certainly have duodenal angioectasias or even angioectasias in the cecum of the colon which is sometimes difficult to see. 2. We will follow along with you but she would be okay for discharge home to have her EGD and colonoscopy as an outpatient. We would like to stop her Plavix for one week prior to the procedure so that we could cauterize any angioectasias or do any polypectomies that are required. Thank you for the consultation. Maciej Wang MD [facility] /2:39 PM /5:09 PM
[2017-04-26 20:00] VITALS: BP 106/52; PULSE 64; RESP 16; TEMP 96.4; O2SAT 94
[2017-04-27] VITALS (8 sets, daily range): BP systolic 98–149; BP diastolic 43–65; PULSE 59–75; RESP 16–20; TEMP 96–97.5; O2SAT 92–98
[2017-04-27] MEDS: CHLORHEXIDINE GLUCONATE 2 % 1 PACK (2 CLOTHS) TOP SCH (04:30)
[2017-04-27 05:44] LABS: HEMATOCRIT 24.5 % (35.0-46.0)
[2017-04-27] MEDS: LEVOTHYROXINE SODIUM 75 MCG TAB PO SCH (06:07)
[2017-04-27] MEDS: LEVOTHYROXINE SODIUM 100 MCG TAB PO SCH (06:07)
[2017-04-27] MEDS: INSULIN NovoLIN REGULAR SUPPLEMENTAL SCALE SQ SCH ×4 (06:09→20:07)
[2017-04-27] MEDS: CHLORHEXIDINE 0.12% (ORAL KIT) 15 ML CUP MT SCH ×2 (08:00→20:00)
--- NOTE | 2017-04-27 08:16 | HHI.PR ---
Subjective Remarks sitting on the chair with no acute distress. no chest pain, sob,dizziness. no new complaints. Objective Vitals Vital Signs Date Time Temp Pulse Resp B/P Pulse Ox O2 Delivery O2 Flow Rate FiO2 04/27/17 07:34 94 21 04/27/17 04:00 97.5 75 16 125/58 95 04/27/17 00:00 97.0 70 16 113/55 94 04/26/17 21:29 Room Air 04/26/17 20:00 96.4 64 16 106/52 94 04/26/17 16:00 97.0 65 18 112/48 92 04/26/17 12:18 97.8 67 16 120/55 97 04/26/17 08:45 Nasal Cannula 2.00 I/O 04/26/17 04/26/17 04/26/17 04/27/17 04/27/17 04/27/17 07:00 15:00 23:00 07:00 15:00 23:00 Intake Total 360 ml 450 ml 480 ml 120 ml Output Total 200 ml 500 ml 400 ml Balance 160 ml -50 ml 480 ml -280 ml Intake Oral 360 ml 450 ml 480 ml 120 ml Output Urine Total 200 ml 500 ml 400 ml # Voids 0 # Bowel Movements 2 Result Diagram: 04/27/17 0443 04/26/17 0547 Imaging Last Impressions Chest X-Ray 04/23/17 0600 Signed Impressions: Service Date/Time: Sunday, April 23, 2017 03:50 - CONCLUSION: 1. Bilateral airspace disease improved from April 22. Small effusions. Endotracheal tube and nasogastric tube in satisfactory position. Caleb Cid MD CT Angiography 04/22/17 1239 Signed Impressions: Service Date/Time: Saturday, April 22, 2017 14:28 - CONCLUSION: 1. No evidence for pulmonary artery embolism to the proximal subsegmental level. 2. Significant dilatation of the main pulmonary artery consistent with pulmonary hypertension. 3. Patchy groundglass opacities in the upper lobes bilaterally and more dense patchy airspace consolidation in the lower lobes with trace bilateral small pleural effusions. Differential considerations include cardiogenic pulmonary edema versus diffuse infectious/inflammatory process vs developing ARDS. 4. Nonspecific mediastinal and hilar adenopathy which may be infectious or inflammatory in etiology. 5. Dense coronary artery calcifications. 6. Probable 1.7 x 2.1 cm left adrenal adenoma. Clarence Philip MD Objective Remarks GENERAL: This is a well-nourished, well-developed patient, in no apparent distress. CARDIOVASCULAR: Regular rate and regular rhythm with systolic murmur in aortic area RESPIRATORY: bilateral air entry present GASTROINTESTINAL: Abdomen soft, non-tender, nondistended. Normal, active bowel sounds MUSCULOSKELETAL: Extremities without clubbing, cyanosis, or edema. NEURO: Alert & Oriented x4 to person, place, time, situation. Moves all ext x4 Procedures intubation/extubation Medications and IVs Current Medications Propofol (Diprivan 500 Mg/ 50 ml Inj) 50 ml @ As Directed STK-MED ONCE .ROUTE ; Start 04/22/17 at 12:26; Stop 04/22/17 at 12:27; Status DC Sodium Chloride (NS Flush) 2 ml UNSCH PRN IVF FLUSH AFTER USING IV ACCESS; Start 04/22/17 at 12:45; Stop 04/22/17 at 14:42; Status DC Furosemide (Lasix Inj) 60 mg ONCE ONCE IVP Last administered on 04/22/17 13: 07; Start 04/22/17 at 12:45; Stop 04/22/17 at 13:46; Status DC Succinylcholine Chloride (Quelicin Inj) 100 mg ONCE ONCE IV PUSH Last administered on 04/22/17 13:06; Start 04/22/17 at 12:45; Stop 04/22/17 at 13:46 ; Status DC Etomidate 20 mg 20 mg ONCE ONCE IV PUSH Last administered on 04/22/17 13:05; Start 04/22/17 at 12:45; Stop 04/22/17 at 13:46; Status DC Propofol (Diprivan 1000 Mg/100ml Inj) 100 ml @ 0 mls/hr TITRATE IV Last administered on 04/22/17 13:09; Start 04/22/17 at 12:45; Stop 04/22/17 at 14:42 ; Status DC Iodixanol (VISIPAQUE 320 INJ (Rad CT)) 50 ml STK-MED ONCE IV Last administered on 04/22/17 14:30; Start 04/22/17 at 14:30; Stop 04/22/17 at 14:31; Status DC Chlorhexidine Gluconate (Peridex 0.12% Liq) 15 ml BID@08,20 MT Last administered on 04/24/17 19:40; Start 04/22/17 at 20:00 Dextrose (D50w (Vial) Inj) 50 ml UNSCH PRN IV HYPOGLYCEMIA-SEE COMMENTS; Start 04/22/17 at 14:30 Glucagon (Glucagon Inj) 1 mg UNSCH PRN OTHER HYPOGLYCEMIA-SEE COMMENTS; Start 04/22/17 at 14:30 Insulin Human Regular (NovoLIN R SUPPLEMENTAL SCALE) 1 ACHS SLIDING SCALE SQ Last administered on 04/27/17 06:09; Start 04/22/17 at 16:00 Sodium Chloride (NS Flush) 2 ml UNSCH PRN IV FLUSH FLUSH AFTER USING IV ACCESS ; Start 04/22/17 at 14:30; Status Cancel Sodium Chloride (NS Flush) 2 ml BID IV FLUSH Last administered on 04/24/17 19: 40; Start 04/22/17 at 21:00; Stop 04/24/17 at 20:41; Status DC Acetaminophen (Tylenol) 650 mg Q6H PRN PO PAIN 1-2 AND/OR FEVER >101F Last administered on 04/24/17 18:42; Start 04/22/17 at 14:30; Stop 04/24/17 at 20:41 ; Status DC Famotidine (Pepcid) 20 mg Q12HR PO Last administered on 04/24/17 19:39; Start 04/22/17 at 21:00; Stop 04/24/17 at 20:41; Status DC Ondansetron HCl (Zofran Inj) 4 mg Q6H PRN IV NAUSEA OR VOMITING; Start at 14:30; Status Cancel Albuterol/ Ipratropium (Duoneb Neb) 1 ampule Q6HR NEB INH Last administered on 04/25/17 09:00; Start 04/22/17 at 16:00; Stop 04/25/17 at 09:23; Status DC Albuterol/ Ipratropium (Duoneb Neb) 1 ampule Q2HR NEB PRN INH WHEEZING; Start 04/22/17 at 14:30; Status Cancel Heparin Sodium (Porcine) (Heparin Inj) 5,000 units Q12H SQ Last administered on 04/24/17 16:00; Start 04/22/17 at 16:00; Stop 04/24/17 at 20:41; Status DC Miscellaneous Information 1 Q361D XX Last administered on 04/22/17 16:43; Start 04/22/17 at 14:30; Stop 04/24/17 at 20:41; Status DC Chlorhexidine Gluconate (Chlorhexidine 2% Cloth) 3 pack Taper DAILY@04 TOP Last administered on 04/24/17 03:39; Start 04/23/17 at 04:00; Stop 04/24/17 at 21:31; Status DC Chlorhexidine Gluconate (Chlorhexidine 2% Cloth) 3 pack UNSCH PRN TOP HYGIENIC CARE; Start 04/22/17 at 14:30; Status Cancel Senna/Docusate Sodium (Airam-Colace) 1 tab BID PO Last administered on 19:39; Start 04/22/17 at 21:00; Stop 04/24/17 at 20:41; Status DC Magnesium Hydroxide (Milk Of Magnesia Liq) 30 ml Q12H PRN PO MILD - MODERATE CONSTIPATION; Start 04/22/17 at 14:30; Status Cancel Sennosides (Senokot) 17.2 mg Q12H PRN PO MODERATE - SEVERE CONSTIPATION; Start 04/22/17 at 14:30; Status Cancel Bisacodyl (Dulcolax Supp) 10 mg DAILY PRN RECTAL SEVERE CONSITIPATION; Start at 14:30; Status Cancel Lactulose 30 ml 30 ml DAILY PRN PO SEVERE CONSITIPATION; Start 04/22/17 at 14: 30; Status Cancel Propofol (Diprivan 1000 Mg/100ml Inj) 100 ml @ 0 mls/hr TITRATE IV Last administered on 04/23/17 08:23; Start 04/22/17 at 14:30; Stop 04/23/17 at 15:30 ; Status DC Furosemide (Lasix Inj) 40 mg ONCE ONCE IV PUSH Last administered on 04/22/17 21:00; Start 04/22/17 at 18:30; Stop 04/22/17 at 19:24; Status DC Furosemide 40 mg 40 mg DAILY IV PUSH Last administered on 04/26/17 08:50; Start 04/23/17 at 09:00 Sodium Chloride (NS 1000 ml Inj) 1,000 ml @ 30 mls/hr Q24H IV Last administered on 04/22/17 21:25; Start 04/22/17 at 18:30; Stop 04/23/17 at 15:30 ; Status DC Labetalol HCl (Trandate Inj) 20 mg Q4H PRN IV SYS BP GREATER THAN 150 MMHG Last administered on 04/23/17 05:33; Start 04/23/17 at 01:00 Hydralazine HCl (Apresoline Inj) 20 mg NOW STAT IV PUSH Last administered on 08:01; Start 04/23/17 at 07:55; Stop 04/23/17 at 07:56; Status DC Amlodipine Besylate (Norvasc) 10 mg DAILY PO Last administered on 04/26/17 08: 49; Start 04/24/17 at 09:00 Carvedilol (Coreg) 12.5 mg BID PO Last administered on 04/26/17 21:27; Start 04/23/17 at 21:00 Cilostazol (Pletal) 100 mg BID PO Last administered on 04/26/17 21:27; Start 04/23/17 at 21:00 Clopidogrel Bisulfate (Plavix) 75 mg DAILY PO Last administered on 04/25/17 10 :21; Start 04/24/17 at 09:00 Hydralazine HCl (Apresoline) 50 mg TID PO Last administered on 04/26/17 17:50 ; Start 04/23/17 at 18:00 Methyldopa (Aldomet) 500 mg BID PO Last administered on 04/26/17 21:27; Start 04/23/17 at 21:00 Pravastatin Sodium (Pravachol) 80 mg DAILY PO Last administered on 04/26/17 08 :47; Start 04/24/17 at 09:00 Ranolazine (Ranexa) 500 mg BID PO Last administered on 04/26/17 21:26; Start 04/23/17 at 21:00 Lisinopril (Prinivil) 20 mg BID PO Last administered on 04/26/17 21:27; Start 04/23/17 at 21:00 Levothyroxine Sodium (Synthroid) 100 mcg DAILY@06 PO Last administered on 06:07; Start 04/24/17 at 06:00 Levothyroxine Sodium (Synthroid) 75 mcg DAILY@06 PO Last administered on 06:07; Start 04/24/17 at 06:00 Potassium Chloride (KCl) 30 meq ONCE ONCE PO Last administered on 04/24/17 10 :08; Start 04/24/17 at 09:30; Stop 04/24/17 at 09:38; Status DC Sodium Chloride (NS Flush) 2 ml UNSCH PRN IV FLUSH FLUSH AFTER USING IV ACCESS Last administered on 04/26/17 08:53; Start 04/24/17 at 21:30 Ondansetron HCl (Zofran Inj) 4 mg Q6H PRN IV NAUSEA OR VOMITING; Start at 21:30 Albuterol/ Ipratropium (Duoneb Neb) 1 ampule Q2HR NEB PRN INH WHEEZING; Start 04/24/17 at 21:45 Chlorhexidine Gluconate (Chlorhexidine 2% Cloth) 3 pack UNSCH PRN TOP HYGIENIC CARE; Start 04/24/17 at 21:45 Magnesium Hydroxide (Milk Of Magnesia Liq) 30 ml Q12H PRN PO MILD - MODERATE CONSTIPATION; Start 04/24/17 at 21:45 Sennosides (Senokot) 17.2 mg Q12H PRN PO MODERATE - SEVERE CONSTIPATION; Start 04/24/17 at 21:45 Bisacodyl (Dulcolax Supp) 10 mg DAILY PRN RECTAL SEVERE CONSITIPATION; Start at 21:45 Lactulose (Lactulose Liq) 30 ml DAILY PRN PO SEVERE CONSITIPATION; Start at 21:45 Miscellaneous Information 1 Q361D XX ; Start 04/24/17 at 21:45 Chlorhexidine Gluconate (Chlorhexidine 2% Cloth) 3 pack Taper DAILY@04 TOP Last administered on 04/27/17 04:30; Start 04/25/17 at 04:00; Stop 04/21/18 at 03:59 Famotidine (Pepcid) 20 mg Q12HR PO Last administered on 04/26/17 08:50; Start 04/25/17 at 09:00; Stop 04/26/17 at 09:37; Status DC Heparin Sodium (Porcine) (Heparin Inj) 5,000 units Q12H SQ Last administered on 04/25/17 04:27; Start 04/25/17 at 04:00; Status Hold Senna/Docusate Sodium (Airam-Colace) 1 tab BID PO ; Start 04/25/17 at 09:00 Acetaminophen (Tylenol) 650 mg Q6H PRN PO PAIN 1-2 AND/OR FEVER >101F; Start at 22:15 Potassium Chloride (KCl) 20 meq DAILY PO Last administered on 04/26/17 08:49; Start 04/25/17 at 09:30 Famotidine (Pepcid) 10 mg Q12HR PO Last administered on 04/26/17 21:27; Start 04/26/17 at 21:00 Date of Insertion: Apr 22, 2017 A/P Assessment and Plan A/P Pulmonary edema- resolved. acute respiratory failure due to pulmonary edema- s/p intubation/ extubation 04/23 CT pulmonary angiogram-negative for PE continue neb treatment. continue diuretics 04/23 chest x-ray -improved walk test was repeated and the patient passed the walk test. Cardiovascular disease PAD Hypertension aortic stenosis 04/22 echo-mild MR, mild to moderate TR [id number] ejection fraction 50- 55%, PA P 42 mmHg cardiology evaluation appreciated. d/w today and patient was cleared for discharge with outpatient f/u. Reconciled antihypertensive meds acute kidney injury-improved anemia noted a gradual downward trend in H/H stool for blood pending. iron panel reviewed. GI evaluation appreciated and plan for endoscopy as outpatient consulted hematology - of note case was previously discussed with her master deputy sheriff court security ( Dr.Curtis Lambert). hypokalemia; replaced. diabetes mellitus; accu-check with SSI Prophylaxis: GI Prophylaxis Famotidine twice a day DVT Prophylaxis -- SCDs hold heparin due to anemia continue PT. Discharge Planning dc home with [facility] after seen and cleared by hematology. see med list. f/u;pcp, cardiology, GI and hematology. d/w the patient. Alecia Waters MD Apr 27, 2017 08:15
--- NOTE | 2017-04-27 08:18 | HHI.DS ---
Discharge Summary Admission Date Apr 22, 2017 at 13:42 Discharge Date: Apr 27, 2017 Admitting Diagnosis respiratory failure, pulmonary edema (1) Flash pulmonary edema ICD Code: J81.0 (2) Respiratory failure ICD Code: J96.90 Procedures intubation/extubation Brief History - From Admission 77-year-old female presented to the ED with a H/O severe respiratory distress, impending respiratory failure. Her drove her into the ER. Oxygen saturation upon arrival was 59%. Patient was quickly put on nonrebreather and was noted to have altered mental status. The patient was intubated in the ED, and a significant shunt was noted on the ABG. Also noted during intubation the patient was noted to have a large amount of pink frothy sputum and Lasix IV 60 mg was provided. The patient's reported that the patient was scheduled and reported for a pelvic ultrasound. She was required to drink large quantity of water. and he was in the waiting room. After the completion of the ultrasound and returned she appeared ashen in color, dyspneic. The patient's decided to bring her to the emergency room. said that she has history of cardiovascular disease but he doesn't exactly what, he did report that the patient does take Lasix. They recently moved from [place] and she does not have all her specialists here. She does not have any lung disease either and does not require oxygen at home. They recently had a long distance trip where they covered [address]. Critical care medicine was consulted for management. Upon arrival to the ED the patient's on 100% O2, O2 saturation currently 98%. Patient had received 60 mg of Lasix IV with approximately 300 cc diuresis noted in [place]. The patient was on a propofol infusion for ventilator synchrony and comfort. The patient is scheduled to go for CT angiogram to rule out pulmonary embolus. History [facility] Past Medical History Narrative Medical List of her past medical, surgical, social and family history was reviewed from the nurse's note. Medical History: Unable to Obtain ?: Not Past Surgical History Surgical History: Unable to Obtain Social History Alcohol Use: Yes Tobacco Use: Yes Substance Use: No Allergies-Medications Allergies-Medications (Allergen,Severity, Reaction): Coded Allergies: UNOBTAINABLE (Unverified , 04/22/17) Comments Unavailable Narrative Medication is trying to get her medication list. Awaiting for the nurse to do the medical reconciliation. ROS Review of Systems Except as stated in HPI: all other systems reviewed are Neg CBC/BMP: 04/27/17 0443 04/26/17 0547 Significant Findings Laboratory Tests Test 04/25/17 04/25/17 04/26/17 04/27/17 06:54 14:29 05:47 04:43 Hemoglobin 8.2 GM/DL 8.1 GM/DL 8.2 GM/DL (11.6-15.3) (11.6-15.3) (11.6-15.3) Hematocrit 24.8 % 24.4 % 24.5 % (35.0-46.0) (35.0-46.0) (35.0-46.0) Iron Level 27 MCG/DL (50-170) Total Iron Binding Capacity 214 MCG/DL (250-450) Percent Iron Saturation 12.6 % (20-50) Imaging Last Impressions Chest X-Ray 04/23/17 0600 Signed Impressions: Service Date/Time: Sunday, April 23, 2017 03:50 - CONCLUSION: 1. Bilateral airspace disease improved from April 22. Small effusions. Endotracheal tube and nasogastric tube in satisfactory position. Caleb Cid MD CT Angiography 04/22/17 1239 Signed Impressions: Service Date/Time: Saturday, April 22, 2017 14:28 - CONCLUSION: 1. No evidence for pulmonary artery embolism to the proximal subsegmental level. 2. Significant dilatation of the main pulmonary artery consistent with pulmonary hypertension. 3. Patchy groundglass opacities in the upper lobes bilaterally and more dense patchy airspace consolidation in the lower lobes with trace bilateral small pleural effusions. Differential considerations include cardiogenic pulmonary edema versus diffuse infectious/inflammatory process vs developing ARDS. 4. Nonspecific mediastinal and hilar adenopathy which may be infectious or inflammatory in etiology. 5. Dense coronary artery calcifications. 6. Probable 1.7 x 2.1 cm left adrenal adenoma. Clarence Philip MD PE at Discharge GENERAL: This is a well-nourished, well-developed patient, in no apparent distress. CARDIOVASCULAR: Regular rate and regular rhythm with systolic murmur in aortic area RESPIRATORY: bilateral air entry present GASTROINTESTINAL: Abdomen soft, non-tender, nondistended. Normal, active bowel sounds MUSCULOSKELETAL: Extremities without clubbing, cyanosis, or edema. NEURO: Alert & Oriented x4 to person, place, time, situation. Moves all ext x4 Hospital Course Pulmonary edema- resolved. acute respiratory failure due to pulmonary edema- s/p intubation/ extubation 04/23 CT pulmonary angiogram-negative for PE continue neb treatment. continue diuretics 04/23 chest x-ray -improved walk test was repeated and the patient passed the walk test. Cardiovascular disease PAD Hypertension aortic stenosis 04/22 echo-mild MR, mild to moderate TR [id number] ejection fraction 50- 55%, PA P 42 mmHg cardiology evaluation appreciated. Reconciled antihypertensive meds acute kidney injury-improved anemia noted a gradual downward trend in H/H stool for blood pending. iron panel reviewed. GI evaluation appreciated and plan for endoscopy as outpatient consulted hematology - of note case was previously discussed with her cutter operator tile ( Dr.Curtis Lambert). hypokalemia; replaced. diabetes mellitus; accu-check with SSI Prophylaxis: GI Prophylaxis Famotidine twice a day DVT Prophylaxis -- SCDs hold heparin due to anemia continue PT. Pt Condition on Discharge: Good Discharge Disposition: Disch w/ Home Health Serv Discharge Time: <= 30 minutes Discharge Instructions DIET: Follow Instructions for: Heart Healthy Diet, Diabetic Diet Activities you can perform: Regular-No Restrictions Follow up Referrals: Cardiology Gastroenterology Oncology PCP Follow-up New Medications: Oxygen (O2) (Oxygen (O2)) Device 2 LITER CHRYSTAL.CANULA CONTINUOUS Oxygen Concentrator Portable Gaseous 2 L/min via Nasal Canula Continuous For 99 months Prevent Hypoxemia #2 CYLINDER Continued Medications: Amlodipine (Amlodipine) 10 Mg Tab 10 MG PO DAILY Blood Pressure Management #30 Ref 0 TAB Benazepril (Benazepril) 40 Mg Tab 20 MG PO BID Blood Pressure Management #30 Ref 0 TAB Carvedilol (Carvedilol) 12.5 Mg Tab 12.5 MG PO BID #60 Ref 0 TAB Cilostazol (Cilostazol) 100 Mg Tab 100 MG PO BID INTERMITTENT CLAUDICATION Ref 0 TAB Clopidogrel (Plavix) 75 Mg Tab 75 MG PO DAILY Blood Clot Prevention #30 Ref 0 TAB Coenzyme Q10 (Ubidecarenone) (Co Q 10) 100 Mg Cap 200 MG PO DAILY Furosemide (Lasix) 40 Mg Tab 40 MG PO DAILY #30 Ref 0 TAB Hydralazine HCl (Hydralazine HCl) 50 Mg Tablet 50 MG PO TID Insulin Glargine Inj (Lantus Inj) 100 Unit/Ml Inj 6 UNIT SQ Levothyroxine (Synthroid) 175 Mcg Tab 175 MCG PO DAILY Thyroid #30 Ref 0 TAB Methyldopa (Methyldopa) 500 Mg Tab 500 MG PO BID Blood Pressure Management Ref 0 TAB Nitroglycerin SL (Nitrostat SL) 0.4 Mg Subl 0.4 MG SL DIRECTED 1 tablet under the tongue as needed for chest pain. Repeat every 5 minutes for a total of 3 DOSES or call 911 if NO relief. PRN CHEST PAIN #100 Ref 0 TAB.SL Potassium Chloride ER (Klor-Con 10) 10 Meq Tab 10 MEQ PO DAILY Electrolyte Replacement #30 Ref 0 TAB Pravastatin (Pravastatin) 80 Mg Tab 80 MG PO DAILY Cholesterol Management #30 Ref 0 TAB Ranolazine ER 12 HR (Ranexa ER 12 HR) 500 Mg Tab 500 MG PO BID Chest Pain #60 Ref 0 TAB Saxagliptin (Onglyza) 5 Mg Tab 5 MG PO DAILY Blood Sugar Management #30 Ref 0 TAB Alecia Waters MD Apr 27, 2017 08:18
--- NOTE | 2017-04-27 08:18 | HHI.DCPOC ---
Discharge Care Plan Diagnosis: (1) Respiratory failure (2) Flash pulmonary edema Your Health Problems Are: Fluid/Lung Overload Shortness of Breath Goals to Promote Your Health * To prevent worsening of your condition and complications * To maintain your health at the optimal level Directions to Meet Your Goals Take your medications as prescribed Follow your dietary instruction Follow activity as directed Keep your appointments as scheduled Take your immunizations and boosters as scheduled If your symptoms worsen call your PCP, if no PCP go to Urgent Care Center or Emergency Room Smoking is Dangerous to Your Health. Avoid second hand smoke Call the 24-hour hour crisis hotline for domestic abuse at Alecia Waters MD Apr 27, 2017 08:18
[2017-04-27] MEDS: PRAVASTATIN SOD 80 MG TAB PO SCH (08:49)
[2017-04-27] MEDS: hydrALAZINE HCL 50 MG TAB PO SCH ×3 (08:49→16:54)
[2017-04-27] MEDS: METHYLDOPA 500 MG TAB PO SCH ×2 (08:50→20:06)
[2017-04-27] MEDS: CARVEDILOL 12.5 MG TAB PO SCH ×2 (08:50→20:06)
[2017-04-27] MEDS: POTASSIUM CHLORIDE 20 MEQ CONTROLLED RELEASE TAB PO SCH (08:50)
[2017-04-27] MEDS: FAMOTIDINE 20 MG TAB PO SCH ×2 (08:50→20:05)
[2017-04-27] MEDS: RANOLAZINE 500 MG EXTENDED RELEASE TAB PO SCH ×2 (08:51→20:06)
[2017-04-27] MEDS: CILOSTAZOL 100 MG TAB PO SCH ×2 (08:52→20:06)
[2017-04-27] MEDS: DOCUSATE SODIUM 50 MG/SENNA 8.6 MG TAB PO SCH ×2 (08:52→20:06)
[2017-04-27] MEDS: LISINOPRIL 20 MG TAB PO SCH ×2 (08:52→20:05)
[2017-04-27] MEDS: FUROSEMIDE 40 MG TAB PO SCH (08:55)
[2017-04-27] MEDS: CLOPIDOGREL 75 MG TAB PO SCH (10:31)
--- NOTE | 2017-04-27 16:42 | HHI.GIFU ---
Subjective Remarks Pt resting in bed. Says she feels tired. Objective Vitals I&O Vital Signs Date Time Temp Pulse Resp B/P Pulse Ox O2 Delivery O2 Flow Rate FiO2 04/27/17 16:00 96.0 59 18 124/56 95 04/27/17 12:00 96.9 60 18 98/43 98 04/27/17 09:44 Room Air 04/27/17 08:00 96.6 71 20 149/65 92 04/27/17 07:34 94 21 04/27/17 04:00 97.5 75 16 125/58 95 04/27/17 00:00 97.0 70 16 113/55 94 04/26/17 21:29 Room Air 04/26/17 20:00 96.4 64 16 106/52 94 I/O 04/26/17 04/26/17 04/26/17 04/27/17 04/27/17 04/27/17 07:00 15:00 23:00 07:00 15:00 23:00 Intake Total 360 ml 450 ml 480 ml 120 ml 600 ml Output Total 200 ml 500 ml 400 ml 700 ml Balance 160 ml -50 ml 480 ml -280 ml -100 ml Intake Oral 360 ml 450 ml 480 ml 120 ml 600 ml Output Urine Total 200 ml 500 ml 400 ml 700 ml # Voids 0 3 # Bowel Movements 2 Laboratory Laboratory Tests Test 04/27/17 04:43 Hemoglobin 8.2 Hematocrit 24.5 Imaging Last Impressions Chest X-Ray 04/23/17 0600 Signed Impressions: Service Date/Time: Sunday, April 23, 2017 03:50 - CONCLUSION: 1. Bilateral airspace disease improved from April 22. Small effusions. Endotracheal tube and nasogastric tube in satisfactory position. Caleb Cid MD CT Angiography 04/22/17 1239 Signed Impressions: Service Date/Time: Saturday, April 22, 2017 14:28 - CONCLUSION: 1. No evidence for pulmonary artery embolism to the proximal subsegmental level. 2. Significant dilatation of the main pulmonary artery consistent with pulmonary hypertension. 3. Patchy groundglass opacities in the upper lobes bilaterally and more dense patchy airspace consolidation in the lower lobes with trace bilateral small pleural effusions. Differential considerations include cardiogenic pulmonary edema versus diffuse infectious/inflammatory process vs developing ARDS. 4. Nonspecific mediastinal and hilar adenopathy which may be infectious or inflammatory in etiology. 5. Dense coronary artery calcifications. 6. Probable 1.7 x 2.1 cm left adrenal adenoma. Clarence Philip MD Physical Exam HEENT: PERRL; normocephalic; atraumatic; no jaundice. CHEST: CTA CARDIAC: RRR +murmur ABDOMEN: Soft, nondistended, nontender; no hepatosplenomegaly; bowel sounds are present in all four quadrants. EXTREMITIES: No clubbing, cyanosis, or edema. SKIN: Normal; no rash; no jaundice. AUTO PAINTER: No focal deficits; alert and oriented times three. Assessment and Plan Plan ASSESSMENT - anemia - MARK, no signs GI bleeding. never had EGD. hematology consult pending. - valvular heart disease, PVD - per primary. on plavix. PLAN - EGD/colonoscopy as outpatient, when plavix can be stopped for 1 week - await hematology consult - monitor HH - tranfuse as needed - notify GI of active bleeding This pt was seen by myself and Dr Wang and this note is written on his behalf Sonali Rueda Apr 27, 2017 16:42
[2017-04-27] MEDS ORDERED: IRON SUCROSE INJ 200 MG in SODIUM CHLORIDE 0.9% INJ 100 ML IV ONE (18:00)
[2017-04-27 19:42] LABS: RETIC % 2.6 % (0.4-3.0); REVIEW FLAG FINAL
[2017-04-27 19:55] LABS: ALT (GPT) 19 U/L (10-53); AST (GOT) 15 U/L (15-37)
--- NOTE | 2017-04-27 20:00 | MB ---
cc: SRIDEVI RESENDEZ M.D., MOHAMMADREZA MD DATE OF CONSULTATION: 04/27/[address] Waters. REASON FOR CONSULTATION Hematology was consulted to render an opinion regarding a patient with anemia. HISTORY OF PRESENT ILLNESS The patient is a very pleasant 77-year-old female who presented to the hospital with respiratory distress. She was intubated because of respiratory failure. She was found to have pulmonary edema. Her respiratory function has significantly improved and back to baseline. She was noted to have worsening anemia and hematology was consulted. She was evaluated by Gastroenterology and recommended outpatient colonoscopy and endoscopy. The patient stated that she had anemia since 2012, she was seeing a tele rn in [place]. She had transfusion once in 2012. Over the last few years she had multiple iron infusions the last was more than a year ago. She did not have a bone marrow biopsy. She could not remember what her baseline hemoglobin was. She stated that she went to see her tele rn about three to four weeks ago and was told that her hemoglobin had trended back down again. Her last colonoscopy was about eight years ago. She denies any melena or hematochezia. She feels tired and cold. She has no pica symptoms. PAST MEDICAL HISTORY 1. Chronic anemia. 2. Hypertension. 3. Hyperlipidemia. 4. Pneumatic fever. 5. Aortic stenosis 6. Carotid artery disease. 7. Pulmonary hypertension. 8. Peripheral arterial disease. 9. Diabetes mellitus. PAST SURGICAL HISTORY 1. Left carotid endarterectomy. 2. Colonoscopy was eight years ago. 3. Resection of meningioma. FAMILY HISTORY One daughter is healthy. No hematologic disorder in the family. SOCIAL HISTORY Denies tobacco or alcohol use. She lives with her . She just moved from [place]. ALLERGIES NO KNOWN DRUG ALLERGIES. MEDICATIONS 1. Lasix. 2. Pepcid. 3. Potassium. 4. Airam-Colace. 5. Amlodipine. 6. Plavix. 7. Pravachol. 8. Levothyroxine. 9. Carvedilol. 10. Pletal. 11. Lisinopril. 12. Hydralazine. REVIEW OF SYSTEMS CONSTITUTIONAL: Has generalized weakness and fatigue. EYES: Denies any blurry vision or double vision. ENT: No mouth sores or voice changes. CARDIOVASCULAR: As above. RESPIRATORY: As above. GASTROINTESTINAL: No nausea or vomiting. Denies any melena or hematochezia. Denies abdominal pain. GENITOURINARY: Denies any dysuria or hematuria. MUSCULOSKELETAL: Negative. HEMATOLOGY: As above. ENDOCRINE: Negative. DERMATOLOGY: Negative. PSYCHIATRIC: Negative. NEUROLOGIC: Negative. PHYSICAL EXAMINATION VITAL SIGNS: Temperature 97, blood pressure 124/56, O2 saturation 95% on room air. GENERAL: She is alert and oriented x3, in no acute distress. She looks a little pale. HEENT: Atraumatic, normocephalic. Pupils equal, round and reactive to light. Extraocular muscles intact. No sclerae icterus. Oropharynx - dry mucosa, no lesion. NECK: No thyromegaly. No palpable mass. LYMPHATIC: No palpable cervical, clavicular, axillary or inguinal lymph nodes. CARDIOVASCULAR: Regular S1 and S2. Positive ejection murmur. LUNGS: Clear to auscultation anteriorly. ABDOMEN: Soft, nontender. I could not palpate liver or spleen. EXTREMITIES: No cyanosis, no clubbing. Trace ankle edema. BACK: No paravertebral tenderness. SKIN: No rash or petechiae. NEUROLOGIC: Nonfocal. LABORATORY DATA Reviewed ASSESSMENT 1. Chronic anemia. She has been seeing a tele rn in [place] the last few years. The last time she saw her tele rn was about three or four weeks ago. She was told that her hemoglobin had trended down again. From her history, it sounded like the patient has a known history of iron deficiency anemia and has been getting iron infusion periodically, the last infusion was more than a year ago. Her last colonoscopy was more than eight years ago. She denies any melena or hematochezia. Her iron study showed low iron saturation but ferritin was 156. It is difficult to interpret her iron study due to her recent acute illness. At this point, I am going to do further lab workup. I will check her vitamin study and look for hemolysis which it does not appear to be. We will also give her a dose of Venofer while she is in the hospital. I told her to followup at hematology clinic after discharge for continued treatment. She is also going to have outpatient GI workup to look for etiology of iron deficiency anemia. 2. Respiratory failure which has resolved. 3. Pulmonary hypertension. 4. Aortic stenosis. 5. Hypertension. 6. Hyperlipidemia. RECOMMENDATIONS 1. Proceed with laboratory evaluation outlined as above. 2. We will give her a dose of Venofer. 3. I told the patient to followup at the hematology clinic. The patient can be discharged if she tolerates iron infusion well. Thank you Dr. Waters for asking us see this patient. MD ABIGAIL Aquino/BJZander /5:13 PM /7:01 PM [place]IA
[2017-04-27 20:21] LABS: ALKALINE PHOSPHATASE 47 U/L (45-117); INDIRECT BILIRUBIN 0.2 MG/DL (0.0-0.8); LDH SERUM 173 U/L (84-246); TOTAL BILIRUBIN ADULT 0.3 MG/DL (0.2-1.0)
[2017-04-28] VITALS: BP 144/65; PULSE 71; RESP 18; TEMP 96.9; O2SAT 97
[2017-04-28] MEDS: LEVOTHYROXINE SODIUM 75 MCG TAB PO SCH (03:55)
[2017-04-28] MEDS: LEVOTHYROXINE SODIUM 100 MCG TAB PO SCH (03:55)
[2017-04-28] MEDS: CHLORHEXIDINE GLUCONATE 2 % 1 PACK (2 CLOTHS) TOP SCH (03:55)
[2017-04-28 04:00] VITALS: BP 136/61; PULSE 70; RESP 18; TEMP 97; O2SAT 95
[2017-04-28] MEDS: INSULIN NovoLIN REGULAR SUPPLEMENTAL SCALE SQ SCH (06:16)
[2017-04-28 07:46] LABS: HEMATOCRIT 24.6 % (35.0-46.0); MEAN CELL VOLUME 90.5 FL (80.0-100.0); MEAN CORPUSCULAR HEMOGLOBIN 30.8 PG (27.0-34.0); MEAN CORPUSCULAR HGB CONC 34.1 % (32.0-36.0); PLATELET COUNT 157 TH/MM3 (150-450); RED BLOOD COUNT 2.71 MIL/MM3 (4.00-5.30); RED CELL DISTRIBUTION WIDTH 14.2 % (11.6-17.2); REVIEW FLAG FINAL; WHITE BLOOD COUNT 3.6 TH/MM3 (4.0-11.0)
[2017-04-28 08:00] VITALS: BP 150/68; PULSE 87; RESP 18; TEMP 96.6; O2SAT 94
[2017-04-28] MEDS: CHLORHEXIDINE 0.12% (ORAL KIT) 15 ML CUP MT SCH (08:00)
[2017-04-28] MEDS: RANOLAZINE 500 MG EXTENDED RELEASE TAB PO SCH (08:20)
[2017-04-28] MEDS: METHYLDOPA 500 MG TAB PO SCH (08:20)
[2017-04-28] MEDS: POTASSIUM CHLORIDE 20 MEQ CONTROLLED RELEASE TAB PO SCH (08:20)
[2017-04-28] MEDS: LISINOPRIL 20 MG TAB PO SCH (08:20)
[2017-04-28] MEDS: DOCUSATE SODIUM 50 MG/SENNA 8.6 MG TAB PO SCH (08:21)
[2017-04-28] MEDS: CARVEDILOL 12.5 MG TAB PO SCH (08:21)
[2017-04-28] MEDS: PRAVASTATIN SOD 80 MG TAB PO SCH (08:21)
[2017-04-28] MEDS: CLOPIDOGREL 75 MG TAB PO SCH (08:21)
[2017-04-28] MEDS: FAMOTIDINE 20 MG TAB PO SCH (08:22)
[2017-04-28] MEDS: CILOSTAZOL 100 MG TAB PO SCH (08:22)
[2017-04-28] MEDS: hydrALAZINE HCL 50 MG TAB PO SCH (08:23)
[2017-04-28] MEDS: FUROSEMIDE 40 MG TAB PO SCH (08:26)
[2017-04-28] MEDS ORDERED: POTA-243 PO (10:18)
--- NOTE | 2017-04-28 10:26 | HHI.PR ---
Subjective Remarks The pt was sitting in a chair. She was eager to go home. Family at the bedside and their questions were answered. The pt had no acute complaints. Discussed with nursing. Objective Vitals Vital Signs Date Time Temp Pulse Resp B/P Pulse Ox O2 Delivery O2 Flow Rate FiO2 04/28/17 08:00 96.6 87 18 150/68 94 04/28/17 04:00 97.0 70 18 136/61 95 04/28/17 00:00 96.9 71 18 144/65 97 04/27/17 22:00 67 04/27/17 21:20 Room Air 04/27/17 20:00 97.0 67 16 131/61 94 04/27/17 16:00 96.0 59 18 124/56 95 04/27/17 12:00 96.9 60 18 98/43 98 I/O 04/27/17 04/27/17 04/27/17 04/28/17 04/28/17 04/28/17 07:00 15:00 23:00 07:00 15:00 23:00 Intake Total 120 ml 600 ml 480 ml 240 ml Output Total 400 ml 700 ml 200 ml 500 ml 300 ml Balance -280 ml -100 ml 280 ml -260 ml -300 ml Intake Oral 120 ml 600 ml 480 ml 240 ml Output Urine Total 400 ml 700 ml 200 ml 500 ml 300 ml # Voids 3 Result Diagram: 04/28/17 0652 04/26/17 0547 Imaging Last Impressions Chest X-Ray 04/23/17 0600 Signed Impressions: Service Date/Time: Sunday, April 23, 2017 03:50 - CONCLUSION: 1. Bilateral airspace disease improved from April 22. Small effusions. Endotracheal tube and nasogastric tube in satisfactory position. Caleb Cid MD CT Angiography 04/22/17 1239 Signed Impressions: Service Date/Time: Saturday, April 22, 2017 14:28 - CONCLUSION: 1. No evidence for pulmonary artery embolism to the proximal subsegmental level. 2. Significant dilatation of the main pulmonary artery consistent with pulmonary hypertension. 3. Patchy groundglass opacities in the upper lobes bilaterally and more dense patchy airspace consolidation in the lower lobes with trace bilateral small pleural effusions. Differential considerations include cardiogenic pulmonary edema versus diffuse infectious/inflammatory process vs developing ARDS. 4. Nonspecific mediastinal and hilar adenopathy which may be infectious or inflammatory in etiology. 5. Dense coronary artery calcifications. 6. Probable 1.7 x 2.1 cm left adrenal adenoma. Clarence Philip MD Objective Remarks GENERAL: This is a well-nourished, well-developed patient, in no apparent distress. CARDIOVASCULAR: Regular rate and regular rhythm with systolic murmur in aortic area RESPIRATORY: bilateral air entry present GASTROINTESTINAL: Abdomen soft, non-tender, nondistended. Normal, active bowel sounds MUSCULOSKELETAL: Extremities without clubbing, cyanosis, or edema. NEURO: Alert & Oriented x4 to person, place, time, situation. Moves all ext x4 Procedures intubation/extubation Medications and IVs Current Medications Medications (Trade) Dose Ordered Sig/Delroy Route Start Time Stop Time Status Last Admin (Peridex 0.12% Liq) 15 ml BID@08,20 MT 04/22/17 20:00 04/24/17 19:40 (D50w (Vial) Inj) 50 ml UNSCH PRN IV 04/22/17 14:30 (Glucagon Inj) 1 mg UNSCH PRN OTHER 04/22/17 14:30 (Trandate Inj) 20 mg Q4H PRN IV 04/23/17 01:00 04/23/17 05:33 (Norvasc) 10 mg DAILY PO 04/24/17 09:00 04/28/17 08:22 (Coreg) 12.5 mg BID PO 04/23/17 21:00 04/28/17 08:21 (Pletal) 100 mg BID PO 04/23/17 21:00 04/28/17 08:22 (Plavix) 75 mg DAILY PO 04/24/17 09:00 04/28/17 08:21 (Apresoline) 50 mg TID PO 04/23/17 18:00 04/28/17 08:23 (Aldomet) 500 mg BID PO 04/23/17 21:00 04/28/17 08:20 (Pravachol) 80 mg DAILY PO 04/24/17 09:00 04/28/17 08:21 (Ranexa) 500 mg BID PO 04/23/17 21:00 04/28/17 08:20 (Prinivil) 20 mg BID PO 04/23/17 21:00 04/28/17 08:20 (Synthroid) 100 mcg DAILY@06 PO 04/24/17 06:00 04/28/17 03:55 (Synthroid) 75 mcg DAILY@06 PO 04/24/17 06:00 04/28/17 03:55 (NS Flush) 2 ml UNSCH PRN IV FLUSH 04/24/17 21:30 04/26/17 08:53 (Zofran Inj) 4 mg Q6H PRN IV 04/24/17 21:30 (Chlorhexidine 2% Cloth) 3 pack UNSCH PRN TOP 04/24/17 21:45 (Milk Of Magnesia Liq) 30 ml Q12H PRN PO 04/24/17 21:45 (Senokot) 17.2 mg Q12H PRN PO 04/24/17 21:45 (Dulcolax Supp) 10 mg DAILY PRN RECTAL 04/24/17 21:45 (Lactulose Liq) 30 ml DAILY PRN PO 04/24/17 21:45 Miscellaneous Information 1 Q361D XX 04/24/17 21:45 (Chlorhexidine 2% Cloth) 3 pack Taper DAILY@04 TOP 04/25/17 04:00 04/21/18 03:59 04/28/17 03:55 (Heparin Inj) 5,000 units Q12H SQ 04/25/17 04:00 Hold 04/25/17 04:27 (Airam-Colace) 1 tab BID PO 04/25/17 09:00 (Tylenol) 650 mg Q6H PRN PO 04/24/17 22:15 (KCl) 20 meq DAILY PO 04/25/17 09:30 04/28/17 08:20 (Pepcid) 10 mg Q12HR PO 04/26/17 21:00 04/28/17 08:22 (Lasix) 40 mg DAILY PO 04/27/17 09:00 04/28/17 08:26 Date of Insertion: Apr 22, 2017 A/P Problem List: (1) Flash pulmonary edema ICD Code: J81.0 Status: Acute (2) Respiratory failure ICD Code: J96.90 Status: Acute Assessment and Plan Pulmonary edema- resolved. acute respiratory failure due to pulmonary edema- s/p intubation/ extubation 04/23 CT pulmonary angiogram-negative for PE continue neb treatment. continue diuretics 04/23 chest x-ray -improved walk test was repeated and the patient passed the walk test. Cardiovascular disease PAD Hypertension aortic stenosis 04/22 echo-mild MR, mild to moderate TR [id number] ejection fraction 50- 55%, PA P 42 mmHg cardiology evaluation appreciated. d/w and patient was cleared for discharge with outpatient f/u. Reconciled antihypertensive meds acute kidney injury-improved anemia noted a gradual downward trend in H/H stool for blood pending. iron panel reviewed. GI evaluation appreciated and plan for endoscopy as outpatient consulted hematology - S/p Venofer. The pt will follow up with hematology as an outpt. Hypokalemia; replaced. - d/c on KCl as on Lasix. Diabetes mellitus; accu-check with SSI Prophylaxis: GI Prophylaxis Famotidine twice a day DVT Prophylaxis -- SCDs hold heparin due to anemia Discharge Planning D/c with [facility] Problem Qualifiers (1) Respiratory failure: Qualified Code: J96.01 - Acute respiratory failure with hypoxia Michael Rios DO Apr 28, 2017 10:26
--- NOTE | 2017-04-28 11:10 | PD.ONC.PN ---
Subjective Subjective Remarks Afebrile overnight Eager to go home today Had iron infusion last night Objective Data Date Time Temp Pulse Resp B/P Pulse Ox O2 Delivery O2 Flow Rate FiO2 04/28/17 08:00 96.6 87 18 150/68 94 04/28/17 04:00 97.0 70 18 136/61 95 04/28/17 00:00 96.9 71 18 144/65 97 04/27/17 22:00 67 04/27/17 21:20 Room Air 04/27/17 20:00 97.0 67 16 131/61 94 04/27/17 16:00 96.0 59 18 124/56 95 04/27/17 12:00 96.9 60 18 98/43 98 04/28/17 04/28/17 04/28/17 07:00 15:00 23:00 Intake Total 240 ml Output Total 500 ml 300 ml Balance -260 ml -300 ml Result Diagram: 04/28/17 0652 04/26/17 0547 Laboratory Results Laboratory Tests Test 04/27/17 04/28/17 18:35 06:52 Reticulocyte Count 2.6 % Absolute Reticulocyte Count 72.9 MIL/L Haptoglobin 259 MG/DL Total Bilirubin 0.3 MG/DL Direct Bilirubin 0.1 MG/DL Indirect Bilirubin 0.2 MG/DL Aspartate Amino Transf 15 U/L (AST/SGOT) Alanine Aminotransferase 19 U/L (ALT/SGPT) Alkaline Phosphatase 47 U/L Lactate Dehydrogenase 173 U/L Total Protein 6.3 GM/DL Albumin 2.9 GM/DL Vitamin B12 Level 718 PG/ML Folate GREATER THAN 20.0 NG/ML White Blood Count 3.6 TH/MM3 Red Blood Count 2.71 MIL/MM3 Hemoglobin 8.4 GM/DL Hematocrit 24.6 % Mean Corpuscular Volume 90.5 FL Mean Corpuscular Hemoglobin 30.8 PG Mean Corpuscular Hemoglobin 34.1 % Concent Red Cell Distribution Width 14.2 % Platelet Count 157 TH/MM3 Mean Platelet Volume 7.6 FL Administered Medications Medications (Trade) Dose Ordered Sig/Delroy Route PRN Reason Start Time Stop Time Status Last Admin Dose Admin Chlorhexidine Gluconate (Peridex 0.12% Liq) 15 ml BID@08,20 MT 04/22/17 20:00 04/24/17 19:40 Labetalol HCl (Trandate Inj) 20 mg Q4H PRN IV SYS BP GREATER THAN 150 MMHG 04/23/17 01:00 04/23/17 05:33 Amlodipine Besylate (Norvasc) 10 mg DAILY PO 04/24/17 09:00 04/28/17 08:22 Carvedilol (Coreg) 12.5 mg BID PO 04/23/17 21:00 04/28/17 08:21 Cilostazol (Pletal) 100 mg BID PO 04/23/17 21:00 04/28/17 08:22 Clopidogrel Bisulfate (Plavix) 75 mg DAILY PO 04/24/17 09:00 04/28/17 08:21 Hydralazine HCl (Apresoline) 50 mg TID PO 04/23/17 18:00 04/28/17 08:23 Methyldopa (Aldomet) 500 mg BID PO 04/23/17 21:00 04/28/17 08:20 Pravastatin Sodium (Pravachol) 80 mg DAILY PO 04/24/17 09:00 04/28/17 08:21 Ranolazine (Ranexa) 500 mg BID PO 04/23/17 21:00 04/28/17 08:20 Lisinopril (Prinivil) 20 mg BID PO 04/23/17 21:00 04/28/17 08:20 Levothyroxine Sodium (Synthroid) 100 mcg DAILY@06 PO 04/24/17 06:00 04/28/17 03:55 Levothyroxine Sodium (Synthroid) 75 mcg DAILY@06 PO 04/24/17 06:00 04/28/17 03:55 Sodium Chloride (NS Flush) 2 ml UNSCH PRN IV FLUSH FLUSH AFTER USING IV ACCESS 04/24/17 21:30 04/26/17 08:53 Chlorhexidine Gluconate (Chlorhexidine 2% Cloth) 3 pack Taper DAILY@04 TOP 04/25/17 04:00 04/21/18 03:59 04/28/17 03:55 Heparin Sodium (Porcine) (Heparin Inj) 5,000 units Q12H SQ 04/25/17 04:00 Hold 04/25/17 04:27 Potassium Chloride (KCl) 20 meq DAILY PO 04/25/17 09:30 04/28/17 08:20 Famotidine (Pepcid) 10 mg Q12HR PO 04/26/17 21:00 04/28/17 08:22 Furosemide (Lasix) 40 mg DAILY PO 04/27/17 09:00 04/28/17 08:26 Objective Remarks GENERAL: Older female, sitting up in bed with breakfast tray in no distress. SKIN: Warm and dry. HEAD: Normocephalic. EYES: No injection or drainage. NECK: Supple, trachea midline. CARDIOVASCULAR: +S1/S2. 4/6 murmur heard loudest at the L sternal border. RESPIRATORY: Clear anteriorly. Breathing unlabored. GASTROINTESTINAL: Abdomen soft, non-tender, nondistended. EXTREMITIES: No cyanosis, or edema. NEUROLOGICAL: Normal speech. Moving all extremities. Assessment/Plan Problem List: (1) Iron deficiency anemia Status: Acute Plan: -- The patient had anemia since 2012 with history of multiple iron transfusions -- Will have GI workup as outpatient to look for etiology of MARK. -- B12 normal, folate elevated. No evidence of hemolysis. Assessment 77 y/o female admitted through the emergency room and flash pulmonary edema and was significantly intubated. She is currently extubated and doing well, hematology was consulted for anemia. Plan 1. Tolerated IV iron last night. 2. She will need a GI workup as an outpatient to locate source of iron deficiency anemia. 3. We will see her in the clinic in follow-up in 2-3 weeks. 4. Okay for discharge from hematology standpoint. Attending Statement The exam, history, and the medical decision-making described in the above note were completed with the assistance of the mid-level provider. I reviewed and agree with the findings presented. I attest that I had a [id number] encounter with the patient on the same day, and personally performed and documented my assessment and findings in the medical record. Feels better. Tolerated venofer. Hgb is stable. F/u hematology clinic. She will also need f /u with GI. Donna Eduardo Apr 28, 2017 11:10 Jacek Evangelista MD Apr 28, 2017 12:05
== END 2017-04-28 11:23 | disposition home or self-care (01) | DRG 208 ==
LOC: NEPC 12:16 → NEDA 13:42 → HIMW 19:05 → HOCB 04-24 23:20
PROVIDERS: ADMIT Hospitalist; ATTEND Hospitalist
PROC: 0BH17EZ Insertion of Endotracheal Airway into Trachea, Via Natural or Artificial Opening (ICD-10-PCS; principal; 2017-04-22)
PROC: 5A1935Z Respiratory Ventilation, Less than 24 Consecutive Hours (ICD-10-PCS; 2017-04-22)
DX: J96.01 Acute respiratory failure with hypoxia (principal); J81.0 Acute pulmonary edema; N17.9 Acute kidney failure, unspecified; I27.2 Other secondary pulmonary hypertension; I35.0 Nonrheumatic aortic (valve) stenosis; I10 Essential (primary) hypertension; D50.9 Iron deficiency anemia, unspecified; E87.6 Hypokalemia; E11.9 Type 2 diabetes mellitus without complications; Z79.4 Long term (current) use of insulin; I73.9 Peripheral vascular disease, unspecified; E78.5 Hyperlipidemia, unspecified; F17.200 Nicotine dependence, unspecified, uncomplicated
CPT/HCPCS: 36600; 71010; 71275; 80048; 80076; 81001; 82550; 82607; 82668; 82728; 82746; 82805; 82948; 83010; 83540; 83550; 83615; 83735; 83880; 84100; 84132; 84484; 85014; 85018; 85025; 85027; 85044; 85610; 87040; 87641; 93005; 93306; 93308; 94002; 94003; 94150; 94620; 94640; 94664; 96374; J0330; J0360; J1644; J1756; J1940; J7030; Q9967

== ENCOUNTER 2017-05-27 20:02 | Inpatient (IN) | payer MEDICARE, OTHER ==
[2017-05-27] VITALS (9 sets, daily range): BP systolic 114–181; BP diastolic 54–84; PULSE 79–124; RESP 20–34; TEMP 100.4; O2SAT 96–100
[~2017-05-27] VITALS: Ht 165.1 cm; Wt 93.6 kg
[~2017-05-27 20:02] MED LIST: AMLO10TA2 PO; BENA40TA PO; CARV12.52 PO; CILO100T PO; CO Q100C9 PO; FURO1TAB60 PO; HYDR-3800 PO; LANTUS2P SQ; METH500T PO; NITR0.4S SL; ONGL5TAB PO; OXYGENDME NAS.CANULA; PLAV75TA29 PO; POTA-243 PO; PRAV80TA2 PO; RANO500 PO; SYNT175T PO
[2017-05-27] MEDS ORDERED: SODIUM CHLORIDE 0.9% FLUSH 10 ML FLUSH IVF PRN (20:15)
[2017-05-27] MEDS ORDERED: NITROGLYCERIN 2% OINT 1 GM PACKET TOPICAL ONE (20:15)
--- NOTE | 2017-05-27 20:19 | PD ---
HPI Chief Complaint: Respiratory Distress Time Seen by Provider: 20:07 Travel History International Travel<30 days: No Contact w/Intl Traveler<30days: No History of Present Illness HPI Patient is a 77-year-old female with history of hypertension, hyperlipidemia, pulmonary hypertension, carotid artery disease status post CEA tp left carotid, who presents emergent complaints of severe respiratory distress. As per EMS, patient was at a restaurant today, reports that all of a sudden she became short of breath. Patient reports that she was recently admitted for flash pulmonary edema on April 22, 2017. EMS administered 2 sublingual nitroglycerin sprays as well as 100 mg of IV Lasix. Reports that upon their arrival to scene , patient's oxygen saturation was 60% on room air. Patient was placed on CPAP and her saturations increased to 70%. Upon arrival to the emergency room, patient was placed on BiPAP had 100%. Pulse ox was 99%. Patient is able to speak in full sentences, reports that she is feeling much better at this time. Reports that she isn't feeling sick all day today, she has been having fevers and chills. Patient denies chest pain at this time. PFSH Past Medical History Anemia: Yes Arthritis: Yes (rheumatoid) Heart Rhythm Problems: No Cardiovascular Problems: Yes High Cholesterol: Yes Chest Pain: No Congestive Heart Failure: No Cerebrovascular Accident: Yes (TIA) Coronary Artery Disease: Yes Diabetes: Yes Endocrine: Yes Genitourinary: No Hypertension: Yes Immune Disorder: No Musculoskeletal: Yes Neurologic: Yes Psychiatric: No Reproductive: No Respiratory: No Seizures: Yes (AFTER BRAIN SURGERY) Sleep Apnea: No Thyroid Disease: Yes : 1 Past Surgical History Abdominal Surgery: No Cardiac Surgery: Yes (CARITID ARTERY) Coronary Stent: Yes Endocrine Surgery: No Eye Surgery: Yes (cataracts) Genitourinary Surgery: No Gynecologic Surgery: No Neurologic Surgery: Yes (brain surgery for meningioma) Thoracic Surgery: No Social History Alcohol Use: No Tobacco Use: No Substance Use: No Allergies-Medications (Allergen,Severity, Reaction): Coded Allergies: No Known Allergies (Unverified , 04/22/17) Reported Meds & Prescriptions Reported Meds & Active Scripts Active Klor-Con 10 (Potassium Chloride) 10 Meq Tab 10 Meq PO DAILY Reported Hydralazine (Hydralazine HCl) 100 Mg Tab 50 Mg PO BID Take with meals Lantus Inj (Insulin Glargine) 1,000 Unit/10 Ml Vial 16 Units SQ HS Co Q 10 (Coenzyme Q10 (Ubidecarenone)) 100 Mg Cap 200 Mg PO DAILY Synthroid (Levothyroxine Sodium) 175 Mcg Tab 175 Mcg PO DAILY Ranexa ER 12 HR (Ranolazine) 500 Mg Tab 500 Mg PO BID Pravastatin 80 Mg Tab 80 Mg PO DAILY Onglyza (Saxagliptin) 5 Mg Tab 5 Mg PO DAILY Nitrostat SL (Nitroglycerin) 0.4 Mg Subl 0.4 Mg SL DIRECTED PRN 1 tablet under the tongue as needed for chest pain. Repeat every 5 minutes for a total of 3 DOSES or call 911 if NO relief. Methyldopa 500 Mg Tab 500 Mg PO BID Lasix (Furosemide) 40 Mg Tab 40 Mg PO DAILY Plavix (Clopidogrel Bisulfate) 75 Mg Tab 75 Mg PO DAILY Cilostazol 100 Mg Tab 100 Mg PO BID Carvedilol 12.5 Mg Tab 12.5 Mg PO BID Benazepril (Benazepril HCl) 40 Mg Tab 20 Mg PO BID Amlodipine (Amlodipine Besylate) 10 Mg Tab 10 Mg PO DAILY Review of Systems General / Constitutional: No: Fever Eyes: No: Visual changes HENT: No: Headaches Cardiovascular: Positive: Diaphoresis, No: Chest Pain or Discomfort Respiratory: Positive: Cough, Shortness of Breath, Wheezing Gastrointestinal: No: Abdominal Pain Genitourinary: No: Dysuria Musculoskeletal: No: Pain Skin: No Rash Neurologic: No: Weakness Psychiatric: No: Depression Endocrine: No: Polydipsia Hematologic/Lymphatic: No: Easy Bruising Physical Exam Narrative GENERAL: Severe distress SKIN: Focused skin assessment warm/dry. HEAD: Atraumatic. Normocephalic. EYES: Pupils equal and round. No scleral icterus. No injection or drainage. ENT: No nasal bleeding or discharge. Mucous membranes pink and moist. NECK: Trachea midline. No JVD. CARDIOVASCULAR: Patient is tachycardic. No murmur appreciated. RESPIRATORY: Patient is dyspneic on exam, she has rales to her upper and lower lungs GASTROINTESTINAL: Abdomen soft, non-tender, nondistended. Hepatic and splenic margins not palpable. MUSCULOSKELETAL: No obvious deformities. No clubbing. No cyanosis. No edema. NEUROLOGICAL: Awake and alert. No obvious cranial nerve deficits. Motor grossly within normal limits. Normal speech. PSYCHIATRIC: Appropriate mood and affect; insight and judgment normal. Data Data Last Documented VS Vital Signs Date Time Temp Pulse Resp B/P Pulse Ox O2 Delivery O2 Flow Rate FiO2 05/27/17 21:48 79 22 114/56 100 BiPAP 40 05/27/17 20:05 100.4 Orders Complete Blood Count With Diff (05/27/17 20:07) Comprehensive Metabolic Panel (05/27/17 20:07) B-Type Natriuretic Peptide (05/27/17 20:07) Act Partial Throm Time (Ptt) (05/27/17 20:07) Prothrombin Time / Inr (Pt) (05/27/17 20:07) Magnesium (Mg) (05/27/17 20:07) Ckmb (Isoenzyme) Profile (05/27/17 20:07) Troponin I (05/27/17 20:07) Arterial Blood Gas (Abg) (05/27/17 20:07) Urinalysis - C+S If Indicated (05/27/17 20:07) Influenzae A/B Antigen (05/27/17 20:07) Blood Culture (05/27/17 20:07) Iv Access Insert/Monitor (05/27/17 20:07) Electrocardiogram (05/27/17 20:07) Ecg Monitoring (05/27/17 20:07) Oximetry (05/27/17 20:07) Oxygen Administration (05/27/17 20:07) Chest, Single Ap (05/27/17 20:07) Sodium Chloride 0.9% Flush (Ns Flush) (05/27/17 20:15) Nitroglycerin 2% Oint (Nitroglycerin 2% (05/27/17 20:15) Urinary Catheter Insert/Apply (05/27/17 20:18) Lactic Acid Sepsis Protocol (05/27/17 20:23) Labs Laboratory Tests Test 05/27/17 05/27/17 20:20 20:35 White Blood Count 8.2 TH/MM3 Red Blood Count 3.26 MIL/MM3 Hemoglobin 9.9 GM/DL Hematocrit 30.5 % Mean Corpuscular Volume 93.6 FL Mean Corpuscular Hemoglobin 30.4 PG Mean Corpuscular Hemoglobin 32.5 % Concent Red Cell Distribution Width 15.0 % Platelet Count 263 TH/MM3 Mean Platelet Volume 6.9 FL Neutrophils (%) (Auto) 74.0 % Lymphocytes (%) (Auto) 9.7 % Monocytes (%) (Auto) 7.0 % Eosinophils (%) (Auto) 9.1 % Basophils (%) (Auto) 0.2 % Neutrophils # (Auto) 6.0 TH/MM3 Lymphocytes # (Auto) 0.8 TH/MM3 Monocytes # (Auto) 0.6 TH/MM3 Eosinophils # (Auto) 0.7 TH/MM3 Basophils # (Auto) 0.0 TH/MM3 CBC Comment DIFF FINAL Differential Comment Prothrombin Time 10.3 SEC Prothromb Time International 0.9 RATIO Ratio Activated Partial 27.1 SEC Thromboplast Time Urine Color LIGHT-YELLOW Urine Turbidity CLEAR Urine pH 5.0 Urine Specific [place] 1.008 Urine Protein NEG mg/dL Urine Glucose (UA) NEG mg/dL Urine Ketones NEG mg/dL Urine Occult Blood NEG Urine Nitrite NEG Urine Bilirubin NEG Urine Urobilinogen LESS THAN 2.0 MG/DL Urine Leukocyte Esterase NEG Urine WBC LESS THAN 1 /hpf Urine Hyaline Casts 3 /lpf Microscopic Urinalysis Comment CULT NOT INDICATED Sodium Level 140 MEQ/L Potassium Level 4.3 MEQ/L Chloride Level 107 MEQ/L Carbon Dioxide Level 25.0 MEQ/L Anion Gap 8 MEQ/L Blood Urea Nitrogen 27 MG/DL Creatinine 1.59 MG/DL Estimat Glomerular Filtration 31 ML/MIN Rate Random Glucose 269 MG/DL Calcium Level 8.6 MG/DL Magnesium Level 2.5 MG/DL Total Bilirubin 0.6 MG/DL Aspartate Amino Transf 18 U/L (AST/SGOT) Alanine Aminotransferase 24 U/L (ALT/SGPT) Alkaline Phosphatase 82 U/L Total Creatine Kinase 35 U/L Troponin I LESS THAN 0.02 NG/ML B-Type Natriuretic Peptide 210 PG/ML Total Protein 7.0 GM/DL Albumin 3.3 GM/DL Lactic Acid Level 1.3 mmol/L [facility] Medical Decision Making Medical Screen Exam Complete: Yes Emergency Medical Condition: Yes Interpretation(s) EKG at : Sinus tach at 109bpm, qt/qtc: 324/388, nonspecific st and t wave changes Differential Diagnosis Differential includes flash pulmonary edema, ACS, arrhythmia, electrolyte abnormality, pneumonia, influenza Narrative Course Patient is a 77-year-old female who presents to emergency room with complaints of shortness of breath and respiratory distress. Patient reports that she has been having fevers and chills all day, reports that she was at a restaurant having dinner tonight when all of a sudden she became short of breath. When EMS arrived on scene, patient's pulse ox was 60% on room air. Patient with diuresed with 100 mg of IV Lasix and was given 2 nitroglycerin sprays and was placed on cpap. Upon arrival to the emergency room, patient was placed on bipap , nitro paste applied. FC ordered to measure I's and O's. Patient was placed on a bus driver/monitor. X-ray of the chest ordered, labs were ordered, Plan to continue to monitor patient at this time. Vital Signs Date Time Temp Pulse Resp B/P Pulse Ox O2 Delivery O2 Flow Rate FiO2 05/27/17 21:48 79 22 114/56 100 BiPAP 40 05/27/17 20:11 99 BiPAP 100 05/27/17 20:11 99 100 05/27/17 20:11 113 33 100 BiPAP 05/27/17 20:11 112 05/27/17 20:11 100 BiPAP 100 05/27/17 20:05 100.4 124 34 181/84 05/27/17 19:58 99 100 Laboratory Tests Test 05/27/17 05/27/17 20:20 20:35 White Blood Count 8.2 TH/MM3 (4.0-11.0) Red Blood Count 3.26 MIL/MM3 (4.00-5.30) Hemoglobin 9.9 GM/DL (11.6-15.3) Hematocrit 30.5 % (35.0-46.0) Mean Corpuscular Volume 93.6 FL (80.0-100.0) Mean Corpuscular Hemoglobin 30.4 PG (27.0-34.0) Mean Corpuscular Hemoglobin 32.5 % Concent (32.0-36.0) Red Cell Distribution Width 15.0 % (11.6-17.2) Platelet Count 263 TH/MM3 (150-450) Mean Platelet Volume 6.9 FL (7.0-11.0) Neutrophils (%) (Auto) 74.0 % (16.0-70.0) Lymphocytes (%) (Auto) 9.7 % (9.0-44.0) Monocytes (%) (Auto) 7.0 % (0.0-8.0) Eosinophils (%) (Auto) 9.1 % (0.0-4.0) Basophils (%) (Auto) 0.2 % (0.0-2.0) Neutrophils # (Auto) 6.0 TH/MM3 (1.8-7.7) Lymphocytes # (Auto) 0.8 TH/MM3 (1.0-4.8) Monocytes # (Auto) 0.6 TH/MM3 (0-0.9) Eosinophils # (Auto) 0.7 TH/MM3 (0-0.4) Basophils # (Auto) 0.0 TH/MM3 (0-0.2) CBC Comment DIFF FINAL Differential Comment Prothrombin Time 10.3 SEC (9.8-11.6) Prothromb Time International 0.9 RATIO Ratio Activated Partial 27.1 SEC Thromboplast Time (24.3-30.1) Urine Color LIGHT-YELLOW (YELLW/STRAW) Urine Turbidity CLEAR (CLEAR) Urine pH 5.0 (5.0-8.5) Urine Specific [place] 1.008 (1.002-1.035) Urine Protein NEG mg/dL (NEG-TRACE) Urine Glucose (UA) NEG mg/dL (NEG) Urine Ketones NEG mg/dL (NEG) Urine Occult Blood NEG (NEG) Urine Nitrite NEG (NEG) Urine Bilirubin NEG (NEG) Urine Urobilinogen LESS THAN 2.0 MG/DL (LESS THAN 2.0) Urine Leukocyte Esterase NEG (NEG) Urine WBC LESS THAN 1 /hpf (0-5) Urine Hyaline Casts 3 /lpf (RARE) Microscopic Urinalysis Comment CULT NOT INDICATED Sodium Level 140 MEQ/L (136-145) Potassium Level 4.3 MEQ/L (3.5-5.1) Chloride Level 107 MEQ/L (98-107) Carbon Dioxide Level 25.0 MEQ/L (21.0-32.0) Anion Gap 8 MEQ/L (5-15) Blood Urea Nitrogen 27 MG/DL (7-18) Creatinine 1.59 MG/DL (0.50-1.00) Estimat Glomerular Filtration 31 ML/MIN (>89) Rate Random Glucose 269 MG/DL (74-106) Calcium Level 8.6 MG/DL (8.5-10.1) Magnesium Level 2.5 MG/DL (1.5-2.5) Total Bilirubin 0.6 MG/DL (0.2-1.0) Aspartate Amino Transf 18 U/L (15-37) (AST/SGOT) Alanine Aminotransferase 24 U/L (10-53) (ALT/SGPT) Alkaline Phosphatase 82 U/L (45-117) Total Creatine Kinase 35 U/L (26-192) Troponin I LESS THAN 0.02 NG/ML (0.02-0.05) B-Type Natriuretic Peptide 210 PG/ML (0-100) Total Protein 7.0 GM/DL (6.4-8.2) Albumin 3.3 GM/DL (3.4-5.0) Lactic Acid Level 1.3 mmol/L (0.4-2.0) Last Impressions Chest X-Ray 05/27/172006 Signed Impressions: Service Date/Time: Saturday, May 27, 2017 20:10 - CONCLUSION: Bilateral airspace disease and interstitial opacity suspect for congestive heart failure. Superimposed pneumonia may have this appearance. Regis Griffith MD xray of chest shows b/l airspace disease and interstitial opacity suspect for CHF, superimposed pneumonia may have this appearance. Patient has been pancultured, given her recent admission, will give dose of zosyn and vanco for possible pneumonia. Patient is feeling much better on bipap Plan to admit to ICU Critical Care Narrative Aggregate critical care time was 30 minutes. Time to perform other separately billable procedures was not included in the critical care time. My time did not include minutes spent treating any other patients simultaneously or on activities that did not directly contribute to the patient's treatment. The services I provided to this patient were to treat and/or prevent clinically significant deterioration that could result in: , decompensation, deterioration I provided critical care services requiring my management, as noted below: Chart data review, documentation time, medication orders and management, vital sign assessments/reviewing monitor data, ordering and reviewing lab tests, ordering and interpreting/reviewing x-rays and diagnostic studies, care of the patient and discussion of the patient with the admitting physicians. Diagnosis Primary Impression: Pulmonary edema Qualified Code: J81.0 - Acute pulmonary edema Additional Impression: Hypoxia Admitting Information Admitting Physician Requests: Admit Ariadne Gee DO May 27, 2017 20:19
--- NOTE | 2017-05-27 20:38 | RADRPT ---
EXAM DATE/TIME: 05/27/2017 20:10 [facility] COMPARISON: CHEST SINGLE AP, April 23, 2017, 3:50. INDICATIONS : Shortness of breath MEDICAL HISTORY : None. SURGICAL HISTORY : None. ENCOUNTER: Initial ACUITY: 1 day PAIN SCORE: Non-responsive. LOCATION: Bilateral chest FINDINGS: There is cardiomegaly and diffuse bilateral alveolar and interstitial opacities right greater than le ft. There are no effusions. Aortic calcification. Degenerative changes of the spine. CONCLUSION: Bilateral airspace disease and interstitial opacity suspect for congestive heart failure. Superimpose d pneumonia may have this appearance. Regis Griffith MD on May 27, 2017 at 20:37 Board Certified Radiologist. This report was verified electronically.
[2017-05-27 20:42] LABS: BASOPHIL % 0.2 % (0.0-2.0); EOSINOPHIL # 0.7 TH/MM3 (0-0.4); EOSINOPHIL % 9.1 % (0.0-4.0); HEMATOCRIT 30.5 % (35.0-46.0); HEMO FLAGS DIFF FINAL; LYMPH % 9.7 % (9.0-44.0); LYMPHOCYTE # 0.8 TH/MM3 (1.0-4.8); MEAN CELL VOLUME 93.6 FL (80.0-100.0); MEAN CORPUSCULAR HEMOGLOBIN 30.4 PG (27.0-34.0); MEAN CORPUSCULAR HGB CONC 32.5 % (32.0-36.0); PLATELET COUNT 263 TH/MM3 (150-450); RED BLOOD COUNT 3.26 MIL/MM3 (4.00-5.30); WHITE BLOOD COUNT 8.2 TH/MM3 (4.0-11.0)
[2017-05-27 20:47] LABS: BLOOD, URINE NEG (NEG); COMMENT (UR) CULT NOT INDICATED; CULTURE IF INDICATED CULT NOT INDICATED; GLUCOSE,URINE NEG (NEG); HYALINE CAST, URINE 3 /lpf (RARE); KETONE, URINE NEG (NEG); NITRITE,URINE NEG (NEG); URINE COLOR LIGHT-YELLOW (YELLW/STRAW)
[2017-05-27 21:02] LABS: ALT (GPT) 24 U/L (10-53); ANION GAP 8 MEQ/L (5-15); AST (GOT) 18 U/L (15-37); BLOOD UREA NITROGEN 27 MG/DL (7-18); CHLORIDE 107 MEQ/L (98-107); GLOMERULAR FILTRATION RATE 31 ML/MIN (>89); MAGNESIUM 2.5 MG/DL (1.5-2.5); POTASSIUM 4.3 MEQ/L (3.5-5.1); SODIUM (NA) 140 MEQ/L (136-145)
[2017-05-27 21:07] LABS: ALKALINE PHOSPHATASE 82 U/L (45-117); TOTAL BILIRUBIN ADULT 0.6 MG/DL (0.2-1.0)
[2017-05-27 21:09] LABS: CREATINE KINASE 35 U/L (26-192)
[2017-05-27 21:22] LABS: APTT (PATIENT) 27.1 SEC (24.3-30.1); INTERNATIONAL NORMALIZED RATIO 0.9 RATIO; PROTHROMBIN TIME - PATIENT 10.3 SEC (9.8-11.6)
[2017-05-27] MEDS ORDERED: LANTUS2P SQ (21:47)
[2017-05-27] MEDS ORDERED: HYDR-3801 PO (21:47)
[2017-05-27] MEDS ORDERED: VANCOMYCIN INJ 1,400 MG in SODIUM CHLORID 0.9% 500 ML INJ 500 ML IV ONE (22:15)
[2017-05-27] MEDS ORDERED: PIPERACIL-TAZO 3.375 GM PREMIX 50 ML IV ONE (22:15)
[2017-05-27] MEDS ORDERED: LACTULOSE SYRUP 20 GM/30 ML CUP PO PRN (23:00)
[2017-05-27] MEDS ORDERED: ONDANSETRON HCL 4 MG/2 ML VIAL IV PRN (23:00)
[2017-05-27] MEDS ORDERED: BISACODYL 10 MG SUPP RECTAL PRN (23:00)
[2017-05-27] MEDS ORDERED: LORazepam 2 MG/ML VIAL IV PRN (23:00)
[2017-05-27] MEDS ORDERED: SODIUM CHLORIDE 0.9% FLUSH 10 ML FLUSH PRN (23:00)
[2017-05-27] MEDS ORDERED: MORPHINE SULFATE 4 MG/ML INJ IV PRN (23:00)
[2017-05-27] MEDS ORDERED: MAGNESIUM HYDROXIDE SUSP 30 ML CUP PO PRN (23:00)
[2017-05-27] MEDS ORDERED: ACETAMINOPHEN 325 MG TAB PO PRN (23:00)
[2017-05-27] MEDS ORDERED: MISCELLANEOUS NURSING INFORMATION XX SCH (23:00)
[2017-05-27] MEDS ORDERED: CHLORHEXIDINE GLUCONATE 2 % 1 PACK (2 CLOTHS) TOP PRN (23:00)
[2017-05-27] MEDS ORDERED: RESP: ALBUTEROL 2.5 MG/IPRATROPIUM 0.5 MG NEB (PRN) INH (23:00)
[2017-05-27] MEDS ORDERED: ZOLPIDEM TARTRATE 5 MG TAB PO PRN (23:00)
[2017-05-27] MEDS ORDERED: SENNOSIDES 8.6 MG TAB PO PRN (23:00)
--- NOTE | 2017-05-27 23:08 | HHI.HP ---
HPI Service Critical Care Medicine Primary Care Physician Unknown Admission Diagnosis Pulmonary Edema Diagnosis: Travel History International Travel<30 Days: No Contact w/Intl Traveler <30 Da: No Traveled to Known Affected Are: No History of Present Illness 77-year-old female with history of hypertension, hyperlipidemia, pulmonary hypertension, carotid artery disease status post CEA tp left carotid, presents complaining of of severe respiratory distress. As per EMS, patient was at a restaurant today, reports that all of a sudden she became short of breath. Patient reports that she was recently admitted for flash pulmonary edema on April 22, 2017. EMS administered 2 sublingual nitroglycerin sprays as well as 100 mg of IV Lasix. Reports that upon their arrival to scene, patient's oxygen saturation was 60% on room air. Patient was placed on CPAP and her saturations increased to 70%. Upon arrival to the emergency room, patient was placed on BiPAP had 100%. Pulse ox was 99%. Review of Systems ROS Unobtainable, patient is on facemask BiPAP Past Family Social History Allergies: Coded Allergies: No Known Allergies (Unverified , 04/22/17) Past Medical History Hypertension Hyperlipidemia Rheumatic fever as a child Pulmonary hypertension Carotid artery disease status post CEA left carotid Hypothyroidism Past Surgical History Carotid endarterectomy on the left Reported Medications Reported Meds & Active Scripts Active Klor-Con 10 (Potassium Chloride) 10 Meq Tab 10 Meq PO DAILY Reported Hydralazine (Hydralazine HCl) 100 Mg Tab 50 Mg PO BID Take with meals Lantus Inj (Insulin Glargine) 1,000 Unit/10 Ml Vial 16 Units SQ HS Co Q 10 (Coenzyme Q10 (Ubidecarenone)) 100 Mg Cap 200 Mg PO DAILY Synthroid (Levothyroxine Sodium) 175 Mcg Tab 175 Mcg PO DAILY Ranexa ER 12 HR (Ranolazine) 500 Mg Tab 500 Mg PO BID Pravastatin 80 Mg Tab 80 Mg PO DAILY Onglyza (Saxagliptin) 5 Mg Tab 5 Mg PO DAILY Nitrostat SL (Nitroglycerin) 0.4 Mg Subl 0.4 Mg SL DIRECTED PRN 1 tablet under the tongue as needed for chest pain. Repeat every 5 minutes for a total of 3 DOSES or call 911 if NO relief. Methyldopa 500 Mg Tab 500 Mg PO BID Lasix (Furosemide) 40 Mg Tab 40 Mg PO DAILY Plavix (Clopidogrel Bisulfate) 75 Mg Tab 75 Mg PO DAILY Cilostazol 100 Mg Tab 100 Mg PO BID Carvedilol 12.5 Mg Tab 12.5 Mg PO BID Benazepril (Benazepril HCl) 40 Mg Tab 20 Mg PO BID Amlodipine (Amlodipine Besylate) 10 Mg Tab 10 Mg PO DAILY Active Ordered Medications Current Medications Medications (Trade) Dose Ordered Sig/Delroy Route PRN Reason Start Time Stop Time Status Last Admin Dose Admin Amlodipine Besylate (Norvasc) 10 mg DAILY PO 05/28/17 09:00 Carvedilol (Coreg) 12.5 mg BID PO 05/28/17 09:00 Cilostazol (Pletal) 100 mg BID PO 05/28/17 09:00 Clopidogrel Bisulfate (Plavix) 75 mg DAILY PO 05/28/17 09:00 Furosemide (Lasix) 40 mg DAILY PO 05/28/17 09:00 Hydralazine HCl (Apresoline) 50 mg BID PO 05/28/17 09:00 Insulin Glargine (Lantus Inj) 16 units HS SQ 05/28/17 21:00 Methyldopa (Aldomet) 500 mg BID PO 05/28/17 09:00 Potassium Chloride (KCl) 10 meq DAILY PO 05/28/17 09:00 Pravastatin Sodium (Pravachol) 80 mg DAILY PO 05/28/17 09:00 Ranolazine (Ranexa) 500 mg BID PO 05/28/17 09:00 Lisinopril (Prinivil) 20 mg BID PO 05/28/17 09:00 Sodium Chloride (NS Flush) 2 ml UNSCH PRN .XX FLUSH AFTER USING IV ACCESS 05/27/17 23:00 Sodium Chloride (NS Flush) 2 ml BID .XX 05/28/17 09:00 Acetaminophen (Tylenol) 650 mg Q6H PRN PO PAIN 1-10 AND/OR FEVER >101F 05/27/17 23:00 Morphine Sulfate (Morphine Inj) 2 mg Q2H PRN IV PAIN SCALE 6 TO 10 05/27/17 23:00 Famotidine (Pepcid Inj) 20 mg Q12HR IV PUSH 05/28/17 09:00 Lorazepam (Ativan Inj) 1 mg Q4H PRN IV Agitation/Sedation 05/27/17 23:00 Ondansetron HCl (Zofran Inj) 4 mg Q6H PRN IV NAUSEA OR VOMITING 05/27/17 23:00 Zolpidem Tartrate (Ambien) 5 mg HS PRN PO INSOMNIA 05/27/17 23:00 Miscellaneous Information 1 Q361D XX 05/27/17 23:00 Chlorhexidine Gluconate (Chlorhexidine 2% Cloth) 3 pack Taper DAILY@04 TOP 05/28/17 04:00 05/24/18 03:59 05/28/17 01:26 Chlorhexidine Gluconate (Chlorhexidine 2% Cloth) 3 pack UNSCH PRN [facility] 05/27/17 23:00 Senna/Docusate Sodium (Airam-Colace) 1 tab BID PO 05/28/17 09:00 Magnesium Hydroxide (Milk Of Magnesia Liq) 30 ml Q12H PRN PO MILD - MODERATE CONSTIPATION 05/27/17 23:00 Sennosides (Senokot) 17.2 mg Q12H PRN PO MODERATE - SEVERE CONSTIPATION 05/27/17 23:00 Bisacodyl (Dulcolax Supp) 10 mg DAILY PRN RECTAL SEVERE CONSITIPATION 05/27/17 23:00 Lactulose (Lactulose Liq) 30 ml DAILY PRN PO SEVERE CONSITIPATION 05/27/17 23:00 Miscellaneous (Pill Splitter) 1 ea UNSCH PRN OTHER SEE LABEL COMMENTS 05/27/17 23:15 Levothyroxine Sodium (Synthroid) 75 mcg DAILY@06 PO 05/28/17 06:00 Levothyroxine Sodium (Synthroid) 100 mcg DAILY@0600 PO 05/28/17 06:00 Patient Own Medication PT OWN MED:Saxagliptin (Onglyza) 5... DAILY PO BSM 05/28/17 09:00 Future Hold Family History No family history of premature coronary artery disease or cancer Social History Social tobacco and alcohol use, no illicit drug abuse Physical Exam Vital Signs Vital Signs Date Time Temp Pulse Resp B/P Pulse Ox O2 Delivery O2 Flow Rate FiO2 05/27/17 22:30 96 Nasal Cannula 6.00 05/27/17 22:22 88 20 114/54 98 Nasal Cannula 3 05/27/17 21:48 79 22 114/56 100 BiPAP 40 05/27/17 21:30 99 40 05/27/17 20:11 99 BiPAP 100 05/27/17 20:11 99 100 05/27/17 20:11 113 33 100 BiPAP 05/27/17 20:11 112 05/27/17 20:11 100 BiPAP 100 05/27/17 20:05 100.4 124 34 181/84 05/27/17 19:58 99 100 Physical Exam GENERAL: Well-nourished, well-developed patient. SKIN: Warm and dry. HEAD: Normocephalic. EYES: No scleral icterus. No injection or drainage. NECK: Supple, trachea midline. No JVD or lymphadenopathy. CARDIOVASCULAR: Regular rate and rhythm without murmurs, gallops, or rubs. RESPIRATORY: Breath sounds equal bilaterally. No accessory muscle use. GASTROINTESTINAL: Abdomen soft, non-tender, nondistended. MUSCULOSKELETAL: No cyanosis, or edema. BACK: Nontender without obvious deformity. No CVA tenderness. EXTREMITIES: No clubbing or cyanosis Laboratory Laboratory Tests Test 05/27/17 05/27/17 20:20 20:35 White Blood Count 8.2 Red Blood Count 3.26 Hemoglobin 9.9 Hematocrit 30.5 Mean Corpuscular Volume 93.6 Mean Corpuscular Hemoglobin 30.4 Mean Corpuscular Hemoglobin 32.5 Concent Red Cell Distribution Width 15.0 Platelet Count 263 Mean Platelet Volume 6.9 Neutrophils (%) (Auto) 74.0 Lymphocytes (%) (Auto) 9.7 Monocytes (%) (Auto) 7.0 Eosinophils (%) (Auto) 9.1 Basophils (%) (Auto) 0.2 Neutrophils # (Auto) 6.0 Lymphocytes # (Auto) 0.8 Monocytes # (Auto) 0.6 Eosinophils # (Auto) 0.7 Basophils # (Auto) 0.0 CBC Comment DIFF FINAL Differential Comment Prothrombin Time 10.3 Prothromb Time International 0.9 Ratio Activated Partial 27.1 Thromboplast Time Urine Color LIGHT-YELLOW Urine Turbidity CLEAR Urine pH 5.0 Urine Specific [place] 1.008 Urine Protein NEG Urine Glucose (UA) NEG Urine Ketones NEG Urine Occult Blood NEG Urine Nitrite NEG Urine Bilirubin NEG Urine Urobilinogen LESS THAN 2.0 Urine Leukocyte Esterase NEG Urine WBC LESS THAN 1 Urine Hyaline Casts 3 Microscopic Urinalysis Comment CULT NOT INDICATED Sodium Level 140 Potassium Level 4.3 Chloride Level 107 Carbon Dioxide Level 25.0 Anion Gap 8 Blood Urea Nitrogen 27 Creatinine 1.59 Estimat Glomerular Filtration 31 Rate Random Glucose 269 Calcium Level 8.6 Magnesium Level 2.5 Total Bilirubin 0.6 Aspartate Amino Transf 18 (AST/SGOT) Alanine Aminotransferase 24 (ALT/SGPT) Alkaline Phosphatase 82 Total Creatine Kinase 35 Troponin I LESS THAN 0.02 B-Type Natriuretic Peptide 210 Total Protein 7.0 Albumin 3.3 Lactic Acid Level 1.3 Date/Time Procedure Status Source Growth 05/27/17 20:35 Aerobic Blood Culture Received Blood Peripheral Pending 05/27/17 20:35 Anaerobic Blood Culture Received Blood Peripheral Pending Result Diagram: 05/27/17201905/27/172019 Imaging Last 24 hours Impressions Chest X-Ray 05/28/17 0000 Signed Impressions: Service Date/Time: Sunday, May 28, 2017 00:06 - CONCLUSION: Slight improvement in aeration Jose Mooney MD Chest X-Ray 05/27/172006 Signed Impressions: Service Date/Time: Saturday, May 27, 2017 20:10 - CONCLUSION: Bilateral airspace disease and interstitial opacity suspect for congestive heart failure. Superimposed pneumonia may have this appearance. Regis Griffith MD Assessment and Plan Assessment and Plan Respiratory failure - Fluid overload - Gentle diuresis - Possible underlying pneumonia - BiPAP when necessary with a goal to wean off Pneumonia - Empiric antibiotics - Follow-up cultures Acute on chronic congestive heart failure - Gentle diuresis - Consult patient's apartment maintenance supervisor Dr. Cid - Further management per cardiology Hypothyroidism - Synthroid Hypertension - Norvasc - Coreg - Hydralazine - Lisinopril Congestive heart failure - Coreg, lisinopril, Lasix, Ranexa Diabetes mellitus - Glargine and insulin sliding scale Peripheral vascular disease - Cilostazol and Plavix DVT GI prophylaxis - Teds SCDs, subcutaneous heparin - Pepcid Critical Care: The total critical care time was 35 minutes. Time to perform other separately billable procedures was not included in the critical care time. Alexi Rodriguez MD May 27, 2017 23:08
[2017-05-27] MEDS ORDERED: PILL SPLITTER OTHER PRN (23:15)
[2017-05-28] VITALS (15 sets, daily range): BP systolic 120–160; BP diastolic 56–75; PULSE 74–92; RESP 15–30; TEMP 97.9–98.9; O2SAT 89–99
--- NOTE | 2017-05-28 01:05 | RADRPT ---
EXAM DATE/TIME: 05/28/2017 00:06 [facility] COMPARISON: CHEST SINGLE AP, May 27, 2017, 20:10. INDICATIONS : Short of breath. MEDICAL HISTORY : Diabetes mellitus type II. SURGICAL HISTORY : None. ENCOUNTER: Initial ACUITY: 1 day PAIN SCORE: 0/10 LOCATION: Bilateral chest FINDINGS: There has been slight improvement in aeration with slight decrease in confluence of bilateral infiltr ates. Cardiac contours are grossly stable. CONCLUSION: Slight improvement in aeration Jose Mooney MD on May 28, 2017 at 1:02 Board Certified Radiologist. This report was verified electronically.
[2017-05-28 01:11] LABS: BLOOD GAS BASE EXCESS -0.8 mmol/L (-2-2); BLOOD GAS CARBOXYHEMOGLOBIN 1.5 % (0-4); BLOOD GAS HCO3 24 mmol/L (22-26); BLOOD GAS METHEMOGLOBIN 0.8 % (0-2); BLOOD GAS O2 HGB SATURATION 95 % (90-100); BLOOD GAS OXYGEN CONTENT 11.5 Vol % (12.0-20.0); BLOOD GAS PCO2 40 mmHg (38-42); BLOOD GAS PO2 93 mmHG (61-120); BLOOD GAS TOTAL HGB 8.5 G/DL (12.0-16.0); CRITICAL VALUE NO; DRAW SITE LT RADIAL; FIO2 40 %; NUMBER OF ARTERIAL PUNCTURES 1; OXYGEN DEVICE BiPAP; TEMP CORR TO 98.6; ULNAR PULSE PRESENT; VENT SETTINGS IPAP12/EPAP6
[2017-05-28 01:12] LABS: STAT YES
[2017-05-28] MEDS: CHLORHEXIDINE GLUCONATE 2 % 1 PACK (2 CLOTHS) TOP SCH (01:26)
[2017-05-28 02:31] LABS: AUTOMATED NEUTROPHIL # 5.6 TH/MM3 (1.8-7.7); BASOPHIL % 0.4 % (0.0-2.0); EOSINOPHIL # 0.2 TH/MM3 (0-0.4); HEMATOCRIT 23.5 % (35.0-46.0); HEMO FLAGS DIFF FINAL; LYMPH % 9.3 % (9.0-44.0); LYMPHOCYTE # 0.7 TH/MM3 (1.0-4.8); MEAN CELL VOLUME 92.4 FL (80.0-100.0); MEAN CORPUSCULAR HEMOGLOBIN 30.8 PG (27.0-34.0); MEAN CORPUSCULAR HGB CONC 33.3 % (32.0-36.0); MONO % 9.1 % (0.0-8.0); NEUT % 78.2 % (16.0-70.0); PLATELET COUNT 198 TH/MM3 (150-450); RED BLOOD COUNT 2.54 MIL/MM3 (4.00-5.30); RED CELL DISTRIBUTION WIDTH 14.4 % (11.6-17.2); WHITE BLOOD COUNT 7.2 TH/MM3 (4.0-11.0)
[2017-05-28 03:06] LABS: ALT (GPT) 19 U/L (10-53); ANION GAP 8 MEQ/L (5-15); AST (GOT) 10 U/L (15-37); BLOOD UREA NITROGEN 28 MG/DL (7-18); CHLORIDE 109 MEQ/L (98-107); GLOMERULAR FILTRATION RATE 32 ML/MIN (>89); MAGNESIUM 2.3 MG/DL (1.5-2.5); POTASSIUM 4.2 MEQ/L (3.5-5.1); SODIUM (NA) 143 MEQ/L (136-145)
[2017-05-28 03:09] LABS: ALKALINE PHOSPHATASE 60 U/L (45-117); TOTAL BILIRUBIN ADULT 0.6 MG/DL (0.2-1.0)
[2017-05-28] MEDS ORDERED: FUROSEMIDE 20 MG/2 ML VIAL IV PUSH SCH (05:45)
[2017-05-28] MEDS ORDERED: NON-FORMULARY DRUG (Levothyroxine (Synthroid) 175 MCG) PO SCH (06:00)
[2017-05-28] MEDS: PIPERACIL-TAZO 3.375 GM PREMIX 50 ML IV SCH ×3 (06:25→18:38)
[2017-05-28] MEDS: HEPARIN SODIUM - SQ 10,000 UNITS/ML VIAL SQ SCH ×3 (06:25→22:25)
[2017-05-28] MEDS: AZITHROMYCIN INJ 500 MG in SODIUM CHLOR 0.9% 250 ML INJ 250 ML IV SCH (06:25)
[2017-05-28] MEDS: LEVOTHYROXINE SODIUM 75 MCG TAB PO SCH (06:26)
[2017-05-28] MEDS: LEVOTHYROXINE SODIUM 100 MCG TAB PO SCH (06:26)
--- NOTE | 2017-05-28 08:59 | HHI.CCPN ---
Subjective Remarks/Hospital Course Hospital Course: 77-year-old female with history of hypertension, hyperlipidemia, pulmonary hypertension, carotid artery disease status post CEA tp left carotid, presents complaining of of severe respiratory distress. As per EMS, patient was at a restaurant today, reports that all of a sudden she became short of breath. Patient reports that she was recently admitted for flash pulmonary edema on April 22, 2017. EMS administered 2 sublingual nitroglycerin sprays as well as 100 mg of IV Lasix. Reports that upon their arrival to scene, patient's oxygen saturation was 60% on room air. Patient was placed on CPAP and her saturations increased to 70%. Upon arrival to the emergency room, patient was placed on BiPAP had 100%. Pulse ox was 99%. Subjective: 05/28: weaned off of BiPAP overnight. now on NC o2. net -600cc overnight. symptomatically feels better. no complaints. Objective Vital Signs Date Time Temp Pulse Resp B/P Pulse Ox O2 Delivery O2 Flow Rate FiO2 05/28/17 08:07 92 Nasal Cannula 05/28/17 07:00 77 19 138/63 05/28/17 04:00 98.6 05/28/17 01:00 8.00 05/27/17 21:48 40 Result Diagram: 05/28/17 0225 05/28/17 0225 Other Results Laboratory Tests Test 05/27/17 21:48 Blood Gas Puncture Site LT RADIAL Blood Gas Patient Temperature 98.6 Blood Gas HCO3 24 mmol/L (22-26) Blood Gas Base Excess -0.8 mmol/L (-2-2) Blood Gas Oxygen Saturation 95 % (90-100) Arterial Blood pH 7.39 (7.380-7.420) Arterial Blood Partial 40 mmHg (38-42) Pressure CO2 Arterial Blood Partial 93 mmHG Pressure O2 (61-120) Arterial Blood Oxygen Content 11.5 Vol % (12.0-20.0) Arterial Blood 1.5 % (0-4) Carboxyhemoglobin Arterial Blood Methemoglobin 0.8 % (0-2) Blood Gas Hemoglobin 8.5 G/DL (12.0-16.0) Oxygen Delivery Device BiPAP Blood Gas Ventilator Setting [id number]/[id number] Blood Gas Inspired Oxygen 40 % Imaging Last 24 hours Impressions Chest X-Ray 05/28/17 0000 Signed Impressions: Service Date/Time: Sunday, May 28, 2017 00:06 - CONCLUSION: Slight improvement in aeration Jose Mooney MD Chest X-Ray 05/27/172006 Signed Impressions: Service Date/Time: Saturday, May 27, 2017 20:10 - CONCLUSION: Bilateral airspace disease and interstitial opacity suspect for congestive heart failure. Superimposed pneumonia may have this appearance. Regis Griffith MD Objective Remarks GENERAL: elderly female, sitting in bed, no acute distress. SKIN: Warm and dry. HEAD: Normocephalic. EYES: No scleral icterus. No injection or drainage. NECK: trachea midline. No JVD CARDIOVASCULAR: Regular rate and rhythm. sinus by tele. RESPIRATORY: unlabored. equal chest rise. nc o2. GASTROINTESTINAL: Abdomen soft, non-tender, nondistended. MUSCULOSKELETAL: No cyanosis, or edema. EXTREMITIES: No clubbing or cyanosis Neuro: RASS 0. CAM -. awake, alert. follows commands. A/P Assessment and Plan Assessment: 77yF with mild mitral stenosis, mild-moderate aortic stenosis and [place] pulmonary hypertension with prior RVSP in the 60s who presents with recurrent acute intravascular volume overload and CHF exacerbation which is likely multifactorial and secondary to valvular heart disease as well as Right ventricular dysfunction/pulmonary hypertension/cor pulmonale. Clinically improving. Acute hypoxic Respiratory failure- resolving. - secondary to CHF exacerbation. - continue forced diuresis - Possible underlying pneumonia - aggressive pulmonary toilet Possible Community Acquired Pneumonia - Empiric antibiotics - Follow-up cultures Acute on chronic congestive heart failure- secondary to cor pulmonale/RV dysfunction and valvular heart disease. - continue forced diuresis - Consult patient's irrigationist Dr. Cid Hypothyroidism - Synthroid Hypertension - Norvasc - Coreg - Hydralazine - Lisinopril Congestive heart failure secondary to RV dysfunction, cor pulmonale, valvular heart disease. - Coreg, lisinopril, Lasix, Ranexa Diabetes mellitus - Glargine and insulin sliding scale Peripheral vascular disease - Cilostazol and Plavix DVT GI prophylaxis - Teds SCDs, subcutaneous heparin - Pepcid Dispo: transfer to floor. consult hospitalist for ongoing medical management. Aniceto Robertson MD May 28, 2017 08:59
[2017-05-28] MEDS ORDERED: SAXAGLIPTIN 5 MG PO SCH ×2 (09:00)
[2017-05-28] MEDS ORDERED: FAMOTIDINE 20 MG/2 ML VIAL IV PUSH SCH (09:00)
[2017-05-28] MEDS ORDERED: NON-FORMULARY DRUG (Coenzyme Q10 (Ubidecarenone) (Co Q 10) 200 MG) PO SCH (09:00)
[2017-05-28] MEDS: DOCUSATE SODIUM 50 MG/SENNA 8.6 MG TAB PO SCH ×2 (09:00→22:24)
[2017-05-28] MEDS ORDERED: hydrALAZINE HCL 100 MG TAB PO SCH (09:00)
[2017-05-28] MEDS: SODIUM CHLORIDE 0.9% FLUSH 10 ML FLUSH SCH ×2 (09:00→22:26)
[2017-05-28] MEDS ORDERED: FUROSEMIDE 40 MG TAB PO SCH (09:00)
[2017-05-28] MEDS: LISINOPRIL 20 MG TAB PO SCH ×2 (09:39→22:23)
[2017-05-28] MEDS: POTASSIUM CHLORIDE 10 MEQ CONTROLLED RELEASE TAB PO SCH (09:39)
[2017-05-28] MEDS: CILOSTAZOL 100 MG TAB PO SCH ×2 (09:39→22:24)
[2017-05-28] MEDS: CARVEDILOL 12.5 MG TAB PO SCH ×2 (09:39→22:23)
[2017-05-28] MEDS: CLOPIDOGREL 75 MG TAB PO SCH (09:39)
[2017-05-28] MEDS: PRAVASTATIN SOD 80 MG TAB PO SCH (09:39)
[2017-05-28] MEDS: FUROSEMIDE 20 MG/2 ML VIAL IV PUSH SCH ×2 (09:40→18:39)
--- NOTE | 2017-05-28 09:54 | MB ---
cc: KATE BENITES MD DATE OF CONSULTATION: 05/28/2017 REASON FOR CONSULTATION: Flash pulmonary edema. HISTORY OF PRESENT ILLNESS: Miss Orozco is a 77 year old patient who is a patient of my partner Dr. Cid. She does have a history of aortic stenosis with a mean gradient of 18 mmHg and hypertension, hyperlipidemia, chronic anemia. The patient reports that she presented with shortness of breath. She reports after further thought that she did have a little preceding chest pain prior to her respiratory decompensation. Per the record, the patient received 100 mg of Lasix for room air saturation of 60% in the field. She was placed on BiPAP. She has currently been weaned back down to a nasal cannula and reports that she feels great this morning. PAST MEDICAL HISTORY: 1. Significant for rheumatic fever as a child. 2. History of hypertension. 3. Hyperlipidemia. 4. Aortic stenosis. 5. Pulmonary hypertension. 6. Coronary artery disease, status post left carcinoembryonic antigen. 7. Hypothyroidism. 8. Chronic anemia. 9. Diabetes. REPORTED OUTPATIENT MEDICATIONS: 1. Hydralazine 2. Lantus 3. Synthroid. 4. Ranexa 5. Pravastatin 6. Methyldopa 7. Lasix 8. Plavix 9. Cilostazol 10. Carvedilol 11. Benazepril 12. Amlodipine. FAMILY HISTORY: Negative for coronary artery disease. SOCIAL HISTORY: The patient does not drink or smoke. REVIEW OF SYSTEMS Except as mentioned in the history of present illness all 12 systems are negative. PHYSICAL EXAMINATION: VITAL SIGNS: 74, 16, 126/60 with pulse ox of 98%. IN GENERAL: She is a well appearing, overweight female who is in no apparent distress. NECK: Her neck is free from jugular venous distention. LUNGS: The lungs have some scattered wheezing. CARDIOVASCULAR SYSTEM: She has a harsh systolic ejection murmur. No rubs or gallops are appreciated. ABDOMEN: The abdomen is soft. EXTREMITIES: The extremities are free from edema. LAB VALUES: Significant for a creatinine of 1.54. Serial troponin' s are less then 0.02, 0.04, 0.04 with a B-type natriuretic peptide of 210. The hemoglobin is 7.8. RADIOLOGIC: Chest x-ray from 05/27/2017 shows bilateral air space disease and interstitial opacities suspect for a congestive heart failure. Superimposed pneumonia may have this appearance. Electrocardiogram shows sinus tachycardia with nonspecific ST T wave changes. IMPRESSIONS: Flash pulmonary edema - while the patient certainly does have a history of valvular heart disease it is unlikely that mild aortic stenosis would have precipitated this. She did complain of some mild chest pain preceding her respiratory distress and does have multiple cardiovascular risk factors, thus an ischemic etiology is obviously concerning. Ideally we would like to proceed with heart catheterization for further evaluation. However, her profound anemia with a hemoglobin of 7.8 and renal insufficiency with a creatinine of 15, certainly pose significant increase in risk with catheterization and may even be prohibitive at this point. At this time I would continue with conservative medical management that she does still have some scattered wheezing. Ultimate etiologies of pulmonary edema need to be entertained as well. Aortic stenosis - the patient does have a history of aortic stenosis with a recent echocardiogram on 05/02/2017 showing a mean gradient of 18 mmHg. The RSVP was 42 at that time. Diabetes - Being managed by the primary team. Kate Benites M.D. Brian /9:33 AM /9:43 AM
[2017-05-28] MEDS: RANOLAZINE 500 MG EXTENDED RELEASE TAB PO SCH ×2 (11:15→22:24)
[2017-05-28] MEDS: METHYLDOPA 500 MG TAB PO SCH ×2 (11:15→22:24)
--- NOTE | 2017-05-28 12:13 | EKG ---
Date Performed: 05/27/2017 Time Performed: 20:07:37 PTAGE: 77 years EKG: SINUS TACHYCARDIA NONSPECIFIC ST & T-WAVE ABNORMALITY Since previous tracing, no significan t change noted ABNORMAL RHYTHM ECG PREVIOUS TRACING : 04/22/2017 12.28 DOCTOR: Zaki Jaramillo Interpretating Date/Time 05/28/2017 12:12:06
[2017-05-28] MEDS: hydrALAZINE HCL 50 MG TAB PO SCH (22:24)
[2017-05-28] MEDS: FAMOTIDINE 20 MG/2 ML VIAL IV PUSH SCH (22:25)
[2017-05-28] MEDS: INSULIN DETEMIR 100 UNITS/ML VIAL SQ SCH (22:39)
[2017-05-29] MEDS: PIPERACIL-TAZO 3.375 GM PREMIX 50 ML IV SCH ×5 (00:12→23:31)
[2017-05-29] MEDS: FUROSEMIDE 20 MG/2 ML VIAL IV PUSH SCH ×2 (01:00→10:53)
[2017-05-29] MEDS: CHLORHEXIDINE GLUCONATE 2 % 1 PACK (2 CLOTHS) TOP SCH (04:00)
[2017-05-29 05:27] LABS: HEMATOCRIT 21.4 % (35.0-46.0); MEAN CELL VOLUME 90.9 FL (80.0-100.0); MEAN CORPUSCULAR HEMOGLOBIN 31.1 PG (27.0-34.0); MEAN CORPUSCULAR HGB CONC 34.2 % (32.0-36.0); PLATELET COUNT 182 TH/MM3 (150-450); RED BLOOD COUNT 2.35 MIL/MM3 (4.00-5.30); RED CELL DISTRIBUTION WIDTH 14.5 % (11.6-17.2); REVIEW FLAG FINAL
[2017-05-29 05:51] LABS: BICARBONATE 27.6 MEQ/L (21.0-32.0); POTASSIUM 3.9 MEQ/L (3.5-5.1)
[2017-05-29] MEDS: LEVOTHYROXINE SODIUM 75 MCG TAB PO SCH (05:51)
[2017-05-29] MEDS: HEPARIN SODIUM - SQ 10,000 UNITS/ML VIAL SQ SCH ×3 (05:52→23:16)
[2017-05-29] MEDS: LEVOTHYROXINE SODIUM 100 MCG TAB PO SCH (05:52)
[2017-05-29 08:00] VITALS: BP 116/50; PULSE 80; RESP 19; TEMP 97.4; O2SAT 93
[2017-05-29 08:30] VITALS: O2SAT 99
--- NOTE | 2017-05-29 09:51 | HHI.PR ---
Subjective Remarks Patient seen and examined this am. Saturating 99% on 4 L. She states she feels great. Sitting in chair, ambulatory without issues. Denies CP. Objective Vital Signs Date Time Temp Pulse Resp B/P Pulse Ox O2 Delivery O2 Flow Rate FiO2 05/29/17 08:30 99 Nasal Cannula 4.00 05/28/17 23:16 98.9 82 18 159/68 99 05/28/17 21:15 95 Nasal Cannula 6.00 05/28/17 19:16 98.2 83 18 150/75 96 05/28/17 16:00 97.9 78 18 133/56 97 05/28/17 12:00 84 05/28/17 12:00 98.4 92 16 120/64 95 05/28/17 10:00 88 I/O 05/28/17 05/28/17 05/28/17 05/29/17 05/29/17 05/29/17 06:59 14:59 22:59 06:59 14:59 22:59 Intake Total 754 ml 818 ml 360 ml 360 ml Output Total 1400 ml 1600 ml Balance -646 ml -782 ml 360 ml 360 ml Intake Oral 240 ml 720 ml 360 ml 360 ml IV Total 514 ml 98 ml Output Urine Total 1400 ml 1600 ml # Voids 1 4 5 # Bowel Movements 1 1 0 Result Diagram: 05/29/17 0506 05/29/17 0506 Imaging Last Impressions Chest X-Ray 05/28/17 0000 Signed Impressions: Service Date/Time: Sunday, May 28, 2017 00:06 - CONCLUSION: Slight improvement in aeration Jose Mooney MD Objective Remarks GENERAL: sitting in chair, well appearing, nad SKIN: Warm and dry. HEAD: Normocephalic. EYES: No scleral icterus. No injection or drainage. NECK: Supple, trachea midline. No JVD or lymphadenopathy. CARDIOVASCULAR: Regular rate and rhythm ++systolic murmur, gallops, or rubs. RESPIRATORY: Faint crackles right lung field. No accessory muscle use. GASTROINTESTINAL: Abdomen soft, non-tender, nondistended. MUSCULOSKELETAL: No cyanosis, trace edema. BACK: Nontender without obvious deformity. No CVA tenderness. A/P Problem List: (1) Pulmonary edema ICD Code: J81.1 (2) Respiratory failure ICD Code: J96.90 (3) DM (diabetes mellitus) ICD Code: E11.9 (4) HTN (hypertension) ICD Code: I10 (5) CHF (congestive heart failure) ICD Code: I50.9 Assessment and Plan 77 yo female with hypertension, hyperlipidemia, pulmonary hypertension, and carotid artery disease status post CEA presents to the ED and respirations distress. Patient was placed on BiPAP and was initially injured management of critical care. She was weaned off her BiPAP on 05/28 and symptomatically felt better. Care was transferred to hospitals. Acute hypoxic Respiratory failure- resolving. - Likely multifactorial including CHF exacerbation, pneumonia, flash pulmonary edema - Currently being diuresed with: Lasix 20 mg every 8 - Pneumonia is being treated with Zosyn & Azithromycin, blood cultures obtained and are negative to date Possible Community Acquired Pneumonia - Empiric antibiotics - Follow-up cultures - See imaging above Acute on chronic congestive heart failure- concern at this time is for an ischemic event - CXR is consistent with this, BNP also elevated. Diuresis as above. Strict I & Os, fluid restrict. She is diuresing well. - trop neg x 3 - Consult patient's supervisor [employer] Dr. Cid, Dr. Benites has seen and evaluated the patient: Ideally would like to proceed with cardiac cathet. - Echo April 2017 showed aortic stenosis Hypothyroidism - Synthroid Hypertension - Norvasc - Coreg - Hydralazine - Lisinopril Diabetes mellitus - Glargine and insulin sliding scale Anemia - acute, normocytic - hb 7.3, 9.9 on admission - hemoccult ordered Peripheral vascular disease - Cilostazol and Plavix DVT GI prophylaxis - Teds SCDs, subcutaneous heparin Discharge Planning D/C pending continued clinical improvement. The following are pending - hemoccult - cardiac workup to possibly include heart cath case discussed with nurse, patient, and her Problem Qualifiers (1) Pulmonary edema: Qualified Code: J81.0 - Acute pulmonary edema Nicolle Thacker MD May 29, 2017 09:50
[2017-05-29] MEDS: AZITHROMYCIN INJ 500 MG in SODIUM CHLOR 0.9% 250 ML INJ 250 ML IV SCH (10:50)
[2017-05-29] MEDS: METHYLDOPA 500 MG TAB PO SCH ×2 (10:50→23:04)
[2017-05-29] MEDS: SODIUM CHLORIDE 0.9% FLUSH 10 ML FLUSH SCH ×2 (10:50→23:03)
[2017-05-29] MEDS: POTASSIUM CHLORIDE 10 MEQ CONTROLLED RELEASE TAB PO SCH (10:50)
[2017-05-29] MEDS: DOCUSATE SODIUM 50 MG/SENNA 8.6 MG TAB PO SCH ×2 (10:51→23:02)
[2017-05-29] MEDS: RANOLAZINE 500 MG EXTENDED RELEASE TAB PO SCH ×2 (10:51→23:02)
[2017-05-29] MEDS: LISINOPRIL 20 MG TAB PO SCH ×2 (10:51→23:05)
[2017-05-29] MEDS: hydrALAZINE HCL 50 MG TAB PO SCH ×2 (10:52→23:04)
[2017-05-29] MEDS: CARVEDILOL 12.5 MG TAB PO SCH ×2 (10:52→23:05)
[2017-05-29] MEDS: PRAVASTATIN SOD 80 MG TAB PO SCH (10:52)
[2017-05-29] MEDS: CILOSTAZOL 100 MG TAB PO SCH ×2 (10:52→23:02)
[2017-05-29] MEDS: CLOPIDOGREL 75 MG TAB PO SCH (10:53)
[2017-05-29] MEDS: FAMOTIDINE 20 MG/2 ML VIAL IV PUSH SCH ×2 (10:53→23:03)
[2017-05-29 12:00] VITALS: BP 98/43; PULSE 71; RESP 17; TEMP 96.9; O2SAT 95
--- NOTE | 2017-05-29 14:33 | PD.CARD.PN ---
Subjective Subjective Remarks Pt reports dizzy with ambulation to bathroom Objective Medications Current Medications Medications (Trade) Dose Ordered Sig/Delroy Route Start Time Stop Time Status Last Admin (Norvasc) 10 mg DAILY PO 05/28/17 09:00 05/29/17 10:52 (Coreg) 12.5 mg BID PO 05/28/17 09:00 05/29/17 10:52 (Pletal) 100 mg BID PO 05/28/17 09:00 05/29/17 10:52 (Plavix) 75 mg DAILY PO 05/28/17 09:00 05/29/17 10:53 (Levemir Inj) 16 units HS SQ 05/28/17 21:00 05/28/17 22:39 (Aldomet) 500 mg BID PO 05/28/17 09:00 05/29/17 10:50 (KCl) 10 meq DAILY PO 05/28/17 09:00 05/29/17 10:50 (Pravachol) 80 mg DAILY PO 05/28/17 09:00 05/29/17 10:52 (Ranexa) 500 mg BID PO 05/28/17 09:00 05/29/17 10:51 (Prinivil) 20 mg BID PO 05/28/17 09:00 05/29/17 10:51 (NS Flush) 2 ml UNSCH PRN .XX 05/27/17 23:00 (NS Flush) 2 ml BID .XX 05/28/17 09:00 05/29/17 10:50 (Tylenol) 650 mg Q6H PRN PO 05/27/17 23:00 (Morphine Inj) 2 mg Q2H PRN IV 05/27/17 23:00 (Ativan Inj) 1 mg Q4H PRN IV 05/27/17 23:00 (Zofran Inj) 4 mg Q6H PRN IV 05/27/17 23:00 (Ambien) 5 mg HS PRN PO 05/27/17 23:00 Miscellaneous Information 1 Q361D XX 05/27/17 23:00 (Chlorhexidine 2% Cloth) 3 pack Taper DAILY@04 TOP 05/28/17 04:00 05/24/18 03:59 05/28/17 01:26 (Chlorhexidine 2% Cloth) 3 pack UNSCH PRN TOP 05/27/17 23:00 (Airam-Colace) 1 tab BID PO 05/28/17 09:00 05/29/17 10:51 (Milk Of Magnesia Liq) 30 ml Q12H PRN PO 05/27/17 23:00 (Senokot) 17.2 mg Q12H PRN PO 05/27/17 23:00 (Dulcolax Supp) 10 mg DAILY PRN RECTAL 05/27/17 23:00 (Lactulose Liq) 30 ml DAILY PRN PO 05/27/17 23:00 (Pill Splitter) 1 ea UNSCH PRN OTHER 05/27/17 23:15 (Synthroid) 75 mcg DAILY@06 PO 05/28/17 06:00 05/29/17 05:51 (Synthroid) 100 mcg DAILY@0600 PO 05/28/17 06:00 05/29/17 05:52 Patient Own Medication PT OWN MED:Saxagliptin (Onglyza) 5... DAILY PO 05/28/17 09:00 Hold Azithromycin 500 mg/Sodium Chloride 250 ml @ 250 mls/hr Q24H IV 05/28/17 08:00 05/29/17 10:50 (Zosyn 3.375 Gm Premix) 50 ml @ 100 mls/hr Q6H IV 05/28/17 06:00 05/29/17 05:51 (Heparin Inj) 5,000 units Q8HR SQ 05/28/17 06:00 05/29/17 05:52 (Lasix Inj) 20 mg Q8H IV PUSH 05/28/17 09:00 05/29/17 10:53 (Pepcid Inj) 10 mg Q12HR IV PUSH 05/28/17 21:00 05/29/17 10:53 (Apresoline) 50 mg BID PO 05/28/17 21:00 05/29/17 10:52 Vital Signs / I&O Vital Signs Date Time Temp Pulse Resp B/P Pulse Ox O2 Delivery O2 Flow Rate FiO2 05/29/17 12:00 96.9 71 17 98/43 95 05/29/17 08:30 99 Nasal Cannula 4.00 05/29/17 08:00 97.4 80 19 116/50 93 05/28/17 23:16 98.9 82 18 159/68 99 7/22/17 21:15 95 Nasal Cannula 6.00 05/28/17 19:16 98.2 83 18 150/75 96 05/28/17 16:00 97.9 78 18 133/56 97 I/O 05/28/17 05/28/17 05/28/17 05/29/17 05/29/17 05/29/17 07:00 15:00 23:00 07:00 15:00 23:00 Intake Total 754 ml 818 ml 360 ml 360 ml Output Total 1400 ml 1600 ml Balance -646 ml -782 ml 360 ml 360 ml Intake Oral 240 ml 720 ml 360 ml 360 ml IV Total 514 ml 98 ml Output Urine Total 1400 ml 1600 ml # Voids 1 4 5 # Bowel Movements 1 1 0 Physical Exam GENERAL: Well developed, well nourished. No acute distress. HEENT: Jugular venous pressure is normal. CHEST: Lungs clear to auscultation bilaterally. Unlabored respiratory effort. CARDIAC: Regular rate and rhythm without S3, S4, or murmur. ABDOMEN: Soft, nontender, no hepatosplenomegaly. Bowel sounds present. EXTREMITIES: No clubbing, cyanosis, or edema. Laboratory Laboratory Tests Test 05/29/17 05:06 White Blood Count 7.0 TH/MM3 Red Blood Count 2.35 MIL/MM3 Hemoglobin 7.3 GM/DL Hematocrit 21.4 % Mean Corpuscular Volume 90.9 FL Mean Corpuscular Hemoglobin 31.1 PG Mean Corpuscular Hemoglobin 34.2 % Concent Red Cell Distribution Width 14.5 % Platelet Count 182 TH/MM3 Mean Platelet Volume 7.0 FL Sodium Level 142 MEQ/L Potassium Level 3.9 MEQ/L Chloride Level 107 MEQ/L Carbon Dioxide Level 27.6 MEQ/L Anion Gap 7 MEQ/L Blood Urea Nitrogen 30 MG/DL Creatinine 1.62 MG/DL Estimat Glomerular Filtration 31 ML/MIN Rate Random Glucose 174 MG/DL Calcium Level 8.4 MG/DL Imaging Last 72 hours Impressions Chest X-Ray 05/28/17 0000 Signed Impressions: Service Date/Time: Sunday, May 28, 2017 00:06 - CONCLUSION: Slight improvement in aeration Jose Mooney MD Chest X-Ray 05/27/172006 Signed Impressions: Service Date/Time: Saturday, May 27, 2017 20:10 - CONCLUSION: Bilateral airspace disease and interstitial opacity suspect for congestive heart failure. Superimposed pneumonia may have this appearance. Regis Griffith MD Assessment and Plan Assessment and Plan Flash pulmonary edema - 05/28- She did complain of some mild chest pain preceding her respiratory distress and does have multiple cardiovascular risk factors, thus an ischemic etiology is obviously concerning. Ideally we would like to proceed with heart catheterization for further evaluation. However, her profound anemia with a hemoglobin of 7.8 and renal insufficiency with a creatinine of 15, certainly pose significant increase in risk with catheterization and may even be prohibitive at this point. 05/29- no further CP; stop diuretics and re-evaluate in am Dizziness- may be related to low BP vs anemia vs other -stop amlodipine, lasix/potassium Aortic stenosis - the patient does have a history of aortic stenosis with a recent echocardiogram on 05/02/2017 showing a mean gradient of 18 mmHg. The RSVP was 42 at that time. Diabetes - Being managed by the primary team. Pneumonia- on antibiotics per primary Dr Cid to return in am Savannah Benites MD May 29, 2017 14:33
[2017-05-29 16:00] VITALS: BP 98/42; PULSE 73; RESP 17; TEMP 97; O2SAT 96
--- NOTE | 2017-05-29 18:31 | EKG ---
Date Performed: 05/28/2017 Time Performed: 14:15:44 PTAGE: 77 years EKG: Sinus rhythm NONSPECIFIC ST & T-WAVE ABNORMALITY ABNORMAL ECG PREVIOUS TRACING : 05/27/2017 20.07 Compared to prior tracing no significant change DOCTOR: Zaki Jaramillo Interpretating Date/Time 05/29/2017 18:31:10
--- NOTE | 2017-05-29 18:32 | EKG ---
Date Performed: 05/28/2017 Time Performed: 17:03:39 PTAGE: 77 years EKG: Sinus rhythm NONSPECIFIC T-WAVE ABNORMALITY ABNORMAL ECG PREVIOUS TRACING : 05/28/2017 14.15 Compared to prior tracing no significant change DOCTOR: Zaki Jaramillo Interpretating Date/Time 05/29/2017 18:31:27
[2017-05-29 20:25] VITALS: BP 106/41; PULSE 87; RESP 18; TEMP 97.5; O2SAT 95
[2017-05-29 23:20] VITALS: BP 106/41; PULSE 78; RESP 17; TEMP 98; O2SAT 96
[2017-05-29] MEDS: INSULIN DETEMIR 100 UNITS/ML VIAL SQ SCH (23:29)
[2017-05-30] VITALS (7 sets, daily range): BP systolic 118–155; BP diastolic 47–63; PULSE 71–85; RESP 14–18; TEMP 96.2–97.6; O2SAT 92–95
[2017-05-30] MEDS: CHLORHEXIDINE GLUCONATE 2 % 1 PACK (2 CLOTHS) TOP SCH (04:08)
[2017-05-30] MEDS: LEVOTHYROXINE SODIUM 100 MCG TAB PO SCH (06:29)
[2017-05-30] MEDS: LEVOTHYROXINE SODIUM 75 MCG TAB PO SCH (06:29)
[2017-05-30] MEDS: PIPERACIL-TAZO 3.375 GM PREMIX 50 ML IV SCH ×4 (06:30→23:45)
[2017-05-30] MEDS: HEPARIN SODIUM - SQ 10,000 UNITS/ML VIAL SQ SCH ×3 (06:30→22:00)
[2017-05-30 07:26] LABS: AUTOMATED NEUTROPHIL # 3.5 TH/MM3 (1.8-7.7); BASOPHIL % 0.2 % (0.0-2.0); EOSINOPHIL # 0.6 TH/MM3 (0-0.4); EOSINOPHIL % 11.9 % (0.0-4.0); HEMATOCRIT 21.4 % (35.0-46.0); HEMO FLAGS DIFF FINAL; LYMPH % 11.4 % (9.0-44.0); LYMPHOCYTE # 0.6 TH/MM3 (1.0-4.8); MEAN CELL VOLUME 90.9 FL (80.0-100.0); MEAN CORPUSCULAR HEMOGLOBIN 31.4 PG (27.0-34.0); MEAN CORPUSCULAR HGB CONC 34.5 % (32.0-36.0); MONO % 9.8 % (0.0-8.0); NEUT % 66.7 % (16.0-70.0); PLATELET COUNT 188 TH/MM3 (150-450); RED BLOOD COUNT 2.35 MIL/MM3 (4.00-5.30); RED CELL DISTRIBUTION WIDTH 14.7 % (11.6-17.2); WHITE BLOOD COUNT 5.2 TH/MM3 (4.0-11.0)
[2017-05-30 07:37] LABS: BICARBONATE 27.3 MEQ/L (21.0-32.0); POTASSIUM 3.8 MEQ/L (3.5-5.1)
[2017-05-30] MEDS: CARVEDILOL 12.5 MG TAB PO SCH ×2 (08:01→23:43)
[2017-05-30] MEDS: CLOPIDOGREL 75 MG TAB PO SCH (08:01)
[2017-05-30] MEDS: AZITHROMYCIN INJ 500 MG in SODIUM CHLOR 0.9% 250 ML INJ 250 ML IV SCH (08:01)
[2017-05-30] MEDS: RANOLAZINE 500 MG EXTENDED RELEASE TAB PO SCH ×2 (08:02→23:43)
[2017-05-30] MEDS: PRAVASTATIN SOD 80 MG TAB PO SCH (08:02)
[2017-05-30] MEDS: CILOSTAZOL 100 MG TAB PO SCH ×2 (08:02→23:43)
[2017-05-30] MEDS: DOCUSATE SODIUM 50 MG/SENNA 8.6 MG TAB PO SCH ×2 (08:02→23:43)
[2017-05-30] MEDS: SODIUM CHLORIDE 0.9% FLUSH 10 ML FLUSH SCH ×2 (09:00→23:46)
[2017-05-30] MEDS: hydrALAZINE HCL 50 MG TAB PO SCH (09:00)
[2017-05-30] MEDS: METHYLDOPA 500 MG TAB PO SCH ×2 (09:00→23:43)
[2017-05-30] MEDS: FAMOTIDINE 20 MG/2 ML VIAL IV PUSH SCH ×2 (09:00→23:43)
[2017-05-30] MEDS: LISINOPRIL 20 MG TAB PO SCH (09:00)
--- NOTE | 2017-05-30 10:29 | HHI.PR ---
Subjective Remarks Patient seen and examined this am. Saturating 94% on 4 L. Yesterday afternoon had some dizziness. Today reports she feels much better than yesterday. She denies CP or SOB. Had liquid stool yesterday and today. Reports it was brown, denies melanotic or blood in stool. Objective Vital Signs Date Time Temp Pulse Resp B/P Pulse Ox O2 Delivery O2 Flow Rate FiO2 05/30/17 07:35 96.6 74 16 129/53 95 05/30/17 07:30 Nasal Cannula 4.00 05/30/17 04:40 97.2 72 17 120/48 95 05/29/17 23:20 98.0 78 17 106/41 96 05/29/17 20:25 97.5 87 18 106/41 95 05/29/17 16:00 97.0 73 17 98/42 96 05/29/17 12:00 96.9 71 17 98/43 95 I/O 05/29/17 05/29/17 05/29/17 05/30/17 05/30/17 05/30/17 07:00 15:00 23:00 07:00 15:00 23:00 Intake Total 360 ml 960 ml 480 ml 240 ml Balance 360 ml 960 ml 480 ml 240 ml Intake Oral 360 ml 960 ml 480 ml 240 ml # Voids 5 3 5 6 # Bowel Movements 0 0 0 0 Result Diagram: 05/30/17 0600 05/30/17 0600 Imaging Last Impressions Chest X-Ray 05/28/17 0000 Signed Impressions: Service Date/Time: Sunday, May 28, 2017 00:06 - CONCLUSION: Slight improvement in aeration Jose Mooney MD Objective Remarks GENERAL: sitting in bed, well appearing, nad SKIN: Warm and dry. HEAD: Normocephalic. EYES: No scleral icterus. No injection or drainage. NECK: Supple, trachea midline. No JVD or lymphadenopathy. CARDIOVASCULAR: Regular rate and rhythm ++systolic murmur, gallops, or rubs. RESPIRATORY: Faint crackles right lung field. No accessory muscle use. GASTROINTESTINAL: Abdomen soft, non-tender, nondistended. MUSCULOSKELETAL: No cyanosis, trace edema. BACK: Nontender without obvious deformity. No CVA tenderness. A/P Problem List: (1) Pulmonary edema ICD Code: J81.1 (2) Respiratory failure ICD Code: J96.90 (3) DM (diabetes mellitus) ICD Code: E11.9 (4) HTN (hypertension) ICD Code: I10 (5) CHF (congestive heart failure) ICD Code: I50.9 (6) Dizziness ICD Code: R42 (7) Acute kidney injury ICD Code: N17.9 Assessment and Plan 77 yo female with hypertension, hyperlipidemia, pulmonary hypertension, and carotid artery disease status post CEA presents to the ED and respirations distress. Patient was placed on BiPAP and was initially injured management of critical care. She was weaned off her BiPAP on 05/28 and symptomatically felt better. Care was transferred to hospitals. Dizziness - cause: anemia, hypotension, dehydration - hold home BP meds and lasix - will give some gentle IV hydration FAUSTO - Cr 2.24 today, was 1.62 yesterday - likely from lasix - gentle IV hydration Acute hypoxic Respiratory failure- resolving. - Likely multifactorial including CHF exacerbation, pneumonia, flash pulmonary edema - Currently being diuresed with: Lasix 20 mg every 8 (on HOLD) - Pneumonia is being treated with Zosyn & Azithromycin, blood cultures obtained and are negative to date Possible Community Acquired Pneumonia - Empiric antibiotics - Follow-up cultures - See imaging above Acute on chronic congestive heart failure- concern at this time is for an ischemic event - CXR is consistent with this, BNP also elevated. Diuresis as above. Strict I & Os, fluid restrict. She is diuresing well. - trop neg x 3 - Consult patient's machine hoop maker Dr. Cid, Dr. Benites has seen and evaluated the patient: Ideally would like to proceed with cardiac cathet. - Echo April 2017 showed aortic stenosis Hypothyroidism - Synthroid Hypertension ALL HOME MEDS ON HOLD DUE TO DIZZINESS/HYPOTENSION - Norvasc - Coreg (continued) - Hydralazine - Lisinopril Diabetes mellitus - Glargine and insulin sliding scale Anemia - acute, normocytic - hb 7.4, 9.9 on admission - hemoccult ordered Peripheral vascular disease - Cilostazol and Plavix DVT GI prophylaxis - Teds SCDs, subcutaneous heparin Discharge Planning D/C pending continued clinical improvement. The following are pending - hemoccult pending--> if positive will need GI consult - cardiac workup case discussed with nurse, patient, and her Problem Qualifiers (1) Pulmonary edema: Qualified Code: J81.0 - Acute pulmonary edema Nicolle Thacker MD May 30, 2017 10:29
[2017-05-30] MEDS ORDERED: SODIUM CHLORID 0.9% 500 ML INJ 500 ML IV SCH (10:30)
--- NOTE | 2017-05-30 11:08 | HHI.FPPN ---
Addendum to progress note ADDENDUM Reason for addendum: Additonal documentation Additional information Will transfusion the patient 2 units given persistent anemia, and was symptomatic yesterday. Post transfusion hb/hct to be obtained. Not currently a candidate for cardiac intervention. Hemoccult is pending and will follow renal function. If it does not improve after d/c of lasix and some gentle hydration will consider consulting renal. Otherwise will continue to follow the patient clinically, transition her to PO abx, and she will likely be d/c home in the next 1-2 days depending on the above. Nicolle Thacker MD May 30, 2017 11:08
--- NOTE | 2017-05-30 11:09 | PD.CARD.PN ---
Subjective Subjective Remarks Pt without CV complaints Objective Medications Current Medications Medications (Trade) Dose Ordered Sig/Delroy Route Start Time Stop Time Status Last Admin (Coreg) 12.5 mg BID PO 05/28/17 09:00 05/30/17 08:01 (Pletal) 100 mg BID PO 05/28/17 09:00 05/30/17 08:02 (Plavix) 75 mg DAILY PO 05/28/17 09:00 05/30/17 08:01 (Levemir Inj) 16 units HS SQ 05/28/17 21:00 05/29/17 23:29 (Aldomet) 500 mg BID PO 05/28/17 09:00 05/29/17 23:04 (Pravachol) 80 mg DAILY PO 05/28/17 09:00 05/30/17 08:02 (Ranexa) 500 mg BID PO 05/28/17 09:00 05/30/17 08:02 (Prinivil) 20 mg BID PO 05/28/17 09:00 Hold 05/29/17 10:51 (NS Flush) 2 ml UNSCH PRN .XX 05/27/17 23:00 (NS Flush) 2 ml BID .XX 05/28/17 09:00 05/29/17 23:03 (Tylenol) 650 mg Q6H PRN PO 05/27/17 23:00 (Morphine Inj) 2 mg Q2H PRN IV 05/27/17 23:00 (Ativan Inj) 1 mg Q4H PRN IV 05/27/17 23:00 (Zofran Inj) 4 mg Q6H PRN IV 05/27/17 23:00 (Ambien) 5 mg HS PRN PO 05/27/17 23:00 Miscellaneous Information 1 Q361D XX 05/27/17 23:00 (Chlorhexidine 2% Cloth) 3 pack Taper DAILY@04 TOP 05/28/17 04:00 05/24/18 03:59 05/28/17 01:26 (Chlorhexidine 2% Cloth) 3 pack UNSCH PRN TOP 05/27/17 23:00 (Airam-Colace) 1 tab BID PO 05/28/17 09:00 05/30/17 08:02 (Milk Of Magnesia Liq) 30 ml Q12H PRN PO 05/27/17 23:00 (Senokot) 17.2 mg Q12H PRN PO 05/27/17 23:00 (Dulcolax Supp) 10 mg DAILY PRN RECTAL 05/27/17 23:00 (Lactulose Liq) 30 ml DAILY PRN PO 05/27/17 23:00 (Pill Splitter) 1 ea UNSCH PRN OTHER 05/27/17 23:15 (Synthroid) 75 mcg DAILY@06 PO 05/28/17 06:00 05/30/17 06:29 (Synthroid) 100 mcg DAILY@0600 PO 05/28/17 06:00 05/30/17 06:29 Patient Own Medication PT OWN MED:Saxagliptin (Onglyza) 5... DAILY PO 05/28/17 09:00 Hold Azithromycin 500 mg/Sodium Chloride 250 ml @ 250 mls/hr Q24H IV 05/28/17 08:00 05/30/17 08:01 (Zosyn 3.375 Gm Premix) 50 ml @ 100 mls/hr Q6H IV 05/28/17 06:00 05/30/17 06:30 (Heparin Inj) 5,000 units Q8HR SQ 05/28/17 06:00 05/30/17 06:30 (Pepcid Inj) 10 mg Q12HR IV PUSH 05/28/17 21:00 05/29/17 23:03 Hydralazine HCl 50 mg 50 mg BID PO 05/28/17 21:00 05/29/17 10:52 (NS 500 ml Inj) 500 ml @ 50 mls/hr Q10H IV 05/30/17 10:30 05/30/17 20:29 Vital Signs / I&O Vital Signs Date Time Temp Pulse Resp B/P Pulse Ox O2 Delivery O2 Flow Rate FiO2 05/30/17 07:35 96.6 74 16 129/53 95 05/30/17 07:30 Nasal Cannula 4.00 05/30/17 04:40 97.2 72 17 120/48 95 05/29/17 23:20 98.0 78 17 106/41 96 05/29/17 20:25 97.5 87 18 106/41 95 05/29/17 16:00 97.0 73 17 98/42 96 05/29/17 12:00 96.9 71 17 98/43 95 I/O 05/29/17 05/29/17 05/29/17 05/30/17 05/30/17 05/30/17 07:00 15:00 23:00 07:00 15:00 23:00 Intake Total 360 ml 960 ml 480 ml 240 ml Balance 360 ml 960 ml 480 ml 240 ml Intake Oral 360 ml 960 ml 480 ml 240 ml # Voids 5 3 5 6 # Bowel Movements 0 0 0 0 Physical Exam GENERAL: Well developed, well nourished. No acute distress. HEENT: Jugular venous pressure is normal. CHEST: Lungs clear to auscultation bilaterally. Unlabored respiratory effort. CARDIAC: Regular rate and rhythm without S3, S4, or murmur. ABDOMEN: Soft, nontender, no hepatosplenomegaly. Bowel sounds present. EXTREMITIES: No clubbing, cyanosis, or edema. Laboratory Laboratory Tests Test 05/29/17 05/29/17 05/30/17 17:15 19:03 06:00 Blood Type O POSITIVE O POSITIVE Antibody Screen POSITIVE Antibody Identification Non-Specific Warm Agglutinin Direct Antiglobulin Test WEAKLY (Fatmata) POSITIVE Crossmatch Leukocyte-Reduced Red Blood Cells Blood Bank Comment White Blood Count 5.2 TH/MM3 Red Blood Count 2.35 MIL/MM3 Hemoglobin 7.4 GM/DL Hematocrit 21.4 % Mean Corpuscular Volume 90.9 FL Mean Corpuscular Hemoglobin 31.4 PG Mean Corpuscular Hemoglobin 34.5 % Concent Red Cell Distribution Width 14.7 % Platelet Count 188 TH/MM3 Mean Platelet Volume 7.4 FL Neutrophils (%) (Auto) 66.7 % Lymphocytes (%) (Auto) 11.4 % Monocytes (%) (Auto) 9.8 % Eosinophils (%) (Auto) 11.9 % Basophils (%) (Auto) 0.2 % Neutrophils # (Auto) 3.5 TH/MM3 Lymphocytes # (Auto) 0.6 TH/MM3 Monocytes # (Auto) 0.5 TH/MM3 Eosinophils # (Auto) 0.6 TH/MM3 Basophils # (Auto) 0.0 TH/MM3 CBC Comment DIFF FINAL Differential Comment Sodium Level 142 MEQ/L Potassium Level 3.8 MEQ/L Chloride Level 106 MEQ/L Carbon Dioxide Level 27.3 MEQ/L Anion Gap 9 MEQ/L Blood Urea Nitrogen 40 MG/DL Creatinine 2.24 MG/DL Estimat Glomerular Filtration 21 ML/MIN Rate Random Glucose 117 MG/DL Calcium Level 8.4 MG/DL Imaging Last 72 hours Impressions Chest X-Ray 05/28/17 0000 Signed Impressions: Service Date/Time: Sunday, May 28, 2017 00:06 - CONCLUSION: Slight improvement in aeration Jose Mooney MD Chest X-Ray 05/27/172006 Signed Impressions: Service Date/Time: Saturday, May 27, 2017 20:10 - CONCLUSION: Bilateral airspace disease and interstitial opacity suspect for congestive heart failure. Superimposed pneumonia may have this appearance. Regis Griffith MD Assessment and Plan Assessment and Plan Flash pulmonary edema - 05/28- She did complain of some mild chest pain preceding her respiratory distress and does have multiple cardiovascular risk factors, thus an ischemic etiology is obviously concerning. Ideally we would like to proceed with heart catheterization for further evaluation. However, her profound anemia with a hemoglobin of 7.8 and renal insufficiency with a creatinine of 15, certainly pose significant increase in risk with catheterization and may even be prohibitive at this point. 05/29- no further CP; stop diuretics and re-evaluate in am 05/30- pt not cath/PCI/CABG candidate at this time with CKD and anemia: - Resp compromise not clearly flash pulm edema as she also has pneumonia and with diuresis increased Cr => As she remains stable I would optimize and consider outpatient work up for ischemia Dizziness- resolved, likely secondary to low BP Aortic stenosis - mean gradient of 18 mmHg. The RSVP was 42 at that time. Diabetes - Being managed by the primary team. Pneumonia- on antibiotics per primary Dr Cid to return in am (out today) Savannah Benites MD May 30, 2017 11:09
[2017-05-30] MEDS ORDERED: SODIUM CHLOR 0.9% 250 ML INJ 250 ML IV ONE (11:15)
[2017-05-31] VITALS (8 sets, daily range): BP systolic 129–170; BP diastolic 56–81; PULSE 66–89; RESP 17–18; TEMP 96.8–98; O2SAT 92–99
[2017-05-31] MEDS: INSULIN DETEMIR 100 UNITS/ML VIAL SQ SCH ×2 (00:03→21:00)
[2017-05-31 03:07] LABS: AUTOMATED NEUTROPHIL # 4.3 TH/MM3 (1.8-7.7); BASOPHIL % 0.7 % (0.0-2.0); EOSINOPHIL # 0.7 TH/MM3 (0-0.4); EOSINOPHIL % 11.6 % (0.0-4.0); HEMATOCRIT 24.1 % (35.0-46.0); HEMO FLAGS DIFF FINAL; LYMPH % 9.5 % (9.0-44.0); LYMPHOCYTE # 0.6 TH/MM3 (1.0-4.8); MEAN CELL VOLUME 89.8 FL (80.0-100.0); MEAN CORPUSCULAR HEMOGLOBIN 31.4 PG (27.0-34.0); MONO % 8.3 % (0.0-8.0); NEUT % 69.9 % (16.0-70.0); PLATELET COUNT 211 TH/MM3 (150-450); RED BLOOD COUNT 2.69 MIL/MM3 (4.00-5.30); RED CELL DISTRIBUTION WIDTH 14.7 % (11.6-17.2); WHITE BLOOD COUNT 6.2 TH/MM3 (4.0-11.0)
[2017-05-31 03:13] LABS: BICARBONATE 27.7 MEQ/L (21.0-32.0); POTASSIUM 3.7 MEQ/L (3.5-5.1)
[2017-05-31] MEDS: CHLORHEXIDINE GLUCONATE 2 % 1 PACK (2 CLOTHS) TOP SCH (04:29)
[2017-05-31] MEDS: LEVOTHYROXINE SODIUM 75 MCG TAB PO SCH (05:59)
[2017-05-31] MEDS: LEVOTHYROXINE SODIUM 100 MCG TAB PO SCH (05:59)
[2017-05-31] MEDS: PIPERACIL-TAZO 3.375 GM PREMIX 50 ML IV SCH ×3 (06:00→17:24)
[2017-05-31] MEDS: HEPARIN SODIUM - SQ 10,000 UNITS/ML VIAL SQ SCH ×2 (06:00→13:04)
[2017-05-31] MEDS: DOCUSATE SODIUM 50 MG/SENNA 8.6 MG TAB PO SCH ×2 (09:00→21:00)
[2017-05-31] MEDS: PRAVASTATIN SOD 80 MG TAB PO SCH (09:51)
[2017-05-31] MEDS: CILOSTAZOL 100 MG TAB PO SCH ×2 (09:51→21:11)
[2017-05-31] MEDS: CLOPIDOGREL 75 MG TAB PO SCH (09:51)
[2017-05-31] MEDS: METHYLDOPA 500 MG TAB PO SCH ×2 (09:51→21:14)
[2017-05-31] MEDS: CARVEDILOL 12.5 MG TAB PO SCH ×2 (09:51→21:13)
[2017-05-31] MEDS: RANOLAZINE 500 MG EXTENDED RELEASE TAB PO SCH ×2 (09:51→21:12)
[2017-05-31] MEDS: FAMOTIDINE 20 MG/2 ML VIAL IV PUSH SCH ×2 (09:52→21:13)
[2017-05-31] MEDS: SODIUM CHLORIDE 0.9% FLUSH 10 ML FLUSH SCH ×2 (09:56→21:14)
[2017-05-31] MEDS: AZITHROMYCIN INJ 500 MG in SODIUM CHLOR 0.9% 250 ML INJ 250 ML IV SCH (10:02)
--- NOTE | 2017-05-31 11:43 | HHI.PR ---
Subjective Remarks Patient seen and examined this am. Saturating 96% on 5 L. She states she is not on oxygen at home. She denies CP or SOB. She states she had a bad night and does not feel as well this am. Dr. Cid is at bedside. She states she has been battling anemia for a while, unsure of the cause, has had recent colonoscopy per patient. Objective Vital Signs Date Time Temp Pulse Resp B/P Pulse Ox O2 Delivery O2 Flow Rate FiO2 05/31/17 11:04 96 Nasal Cannula 5.00 05/31/17 08:00 96.8 74 18 167/73 97 05/31/17 04:10 97.9 78 18 134/56 99 05/31/17 01:33 95 Nasal Cannula 5.00 05/31/17 00:20 97.8 89 17 170/65 93 05/30/17 21:15 97.1 85 18 155/59 93 05/30/17 16:59 97.6 76 16 152/63 92 05/30/17 13:45 97.1 74 14 118/47 93 05/30/17 13:30 96.2 78 15 142/52 94 05/30/17 12:00 96.7 71 16 119/54 93 I/O 05/30/17 05/30/17 05/30/17 05/31/17 05/31/17 05/31/17 07:00 15:00 23:00 07:00 15:00 23:00 Intake Total 1045 ml 240 ml 480 ml 298 ml Balance 1045 ml 240 ml 480 ml 298 ml Intake Oral 720 ml 240 ml 480 ml IV Total 300 ml 298 ml Packed Cells 25 ml # Voids 10 2 2 # Bowel Movements 2 1 0 Result Diagram: 05/31/17 0239 05/31/17 0239 Imaging Last Impressions Chest X-Ray 05/28/17 0000 Signed Impressions: Service Date/Time: Sunday, May 28, 2017 00:06 - CONCLUSION: Slight improvement in aeration Jose Mooney MD Objective Remarks GENERAL: sitting in chair, well appearing, nad SKIN: Warm and dry. HEAD: Normocephalic. EYES: No scleral icterus. No injection or drainage. NECK: Supple, trachea midline. No JVD or lymphadenopathy. CARDIOVASCULAR: Regular rate and rhythm ++systolic murmur, gallops, or rubs. RESPIRATORY: Faint crackles right lung field. No accessory muscle use. GASTROINTESTINAL: Abdomen soft, non-tender, nondistended. MUSCULOSKELETAL: No cyanosis, trace edema. BACK: Nontender without obvious deformity. No CVA tenderness. A/P Problem List: (1) Pulmonary edema ICD Code: J81.1 (2) Respiratory failure ICD Code: J96.90 (3) DM (diabetes mellitus) ICD Code: E11.9 (4) HTN (hypertension) ICD Code: I10 (5) CHF (congestive heart failure) ICD Code: I50.9 (6) Dizziness ICD Code: R42 (7) Acute kidney injury ICD Code: N17.9 Assessment and Plan 77 yo female with hypertension, hyperlipidemia, pulmonary hypertension, and carotid artery disease status post CEA presents to the ED and respirations distress. Patient was placed on BiPAP and was initially injured management of critical care. She was weaned off her BiPAP on 05/28 and symptomatically felt better. Care was transferred to hospitalist. Patient has been stable on nasal canula. She had some anemia in the hospital, this is a chronic problem for her. Hemoccult negative. She received 1 units PRBCS and felt much better. She will be discharged tomorrow morning. Resp walk test is pending. She needs to follow up with her PCP regarding further workup of her anemia. Dizziness - cause: anemia, hypotension, dehydration - hold home BP meds and lasix HLIV FAUSTO- improving. - likely from lasix - gentle IV hydration Acute hypoxic Respiratory failure- resolving. - Likely multifactorial including CHF exacerbation, pneumonia, flash pulmonary edema - Currently being diuresed with: Lasix 20 mg every 8 (on HOLD) - Pneumonia is being treated with Zosyn & Azithromycin, blood cultures obtained and are negative to date, will d/c on 5 days of azithromycin Possible Community Acquired Pneumonia - Empiric antibiotics - Follow-up cultures - See imaging above Acute on chronic congestive heart failure- concern at this time is for an ischemic event - CXR is consistent with this, BNP also elevated. Diuresis as above. Strict I & Os, fluid restrict. She is diuresing well. - trop neg x 3 - Consult patient's shank tapper Dr. Cid, Dr. Benites has seen and evaluated the patient: Ideally would like to proceed with cardiac cathet. - Dr. Cid saw patient 05/31, okay to d.c home, further management as an outpatient, anemia continues to be an issue that complicates things - Echo April 2017 showed aortic stenosis Hypothyroidism - Synthroid Hypertension ALL HOME MEDS ON HOLD DUE TO DIZZINESS/HYPOTENSION - Norvasc - Coreg (continued) - Hydralazine - Lisinopril Diabetes mellitus - Glargine and insulin sliding scale Anemia - acute, normocytic - hb 7.4, 9.9 on admission. received 1 unit PRBCS, 2 were ordered, Hb 8.4 - hemoccult negative, reports a recent colonoscopy Peripheral vascular disease - Cilostazol and Plavix DVT GI prophylaxis - Teds SCDs Discharge Planning D/C tomorrow am. PT recommends home. Resp walk test pending. case discussed with patient, will call her Problem Qualifiers (1) Pulmonary edema: Qualified Code: J81.0 - Acute pulmonary edema Nicolle Thacker MD May 31, 2017 11:43
--- NOTE | 2017-05-31 11:51 | HHI.DCPOC ---
Discharge Care Plan Diagnosis: (1) Respiratory failure (2) Pneumonia Goals to Promote Your Health * To prevent worsening of your condition and complications * To maintain your health at the optimal level Directions to Meet Your Goals Take your medications as prescribed Follow your dietary instruction Follow activity as directed Keep your appointments as scheduled Take your immunizations and boosters as scheduled If your symptoms worsen call your PCP, if no PCP go to Urgent Care Center or Emergency Room Smoking is Dangerous to Your Health. Avoid second hand smoke Call the 24-hour hour crisis hotline for domestic abuse at Nicolle Thacker MD May 31, 2017 11:51
[2017-05-31] MEDS ORDERED: FURO20TA PO (11:52)
--- NOTE | 2017-05-31 13:37 | PD.CARD.PN ---
Subjective Subjective Remarks no CV complaints Objective Medications Current Medications Medications (Trade) Dose Ordered Sig/Delroy Route Start Time Stop Time Status Last Admin (Coreg) 12.5 mg BID PO 05/28/17 09:00 05/31/17 09:51 (Pletal) 100 mg BID PO 05/28/17 09:00 05/31/17 09:51 (Plavix) 75 mg DAILY PO 05/28/17 09:00 05/31/17 09:51 (Levemir Inj) 16 units HS SQ 05/28/17 21:00 05/31/17 00:03 (Aldomet) 500 mg BID PO 05/28/17 09:00 05/31/17 09:51 (Pravachol) 80 mg DAILY PO 05/28/17 09:00 05/31/17 09:51 (Ranexa) 500 mg BID PO 05/28/17 09:00 05/31/17 09:51 (Prinivil) 20 mg BID PO 05/28/17 09:00 Hold 05/29/17 10:51 (NS Flush) 2 ml UNSCH PRN .XX 05/27/17 23:00 (NS Flush) 2 ml BID .XX 05/28/17 09:00 05/31/17 09:56 (Tylenol) 650 mg Q6H PRN PO 05/27/17 23:00 (Morphine Inj) 2 mg Q2H PRN IV 05/27/17 23:00 (Ativan Inj) 1 mg Q4H PRN IV 05/27/17 23:00 (Zofran Inj) 4 mg Q6H PRN IV 05/27/17 23:00 (Ambien) 5 mg HS PRN PO 05/27/17 23:00 Miscellaneous Information 1 Q361D XX 05/27/17 23:00 (Chlorhexidine 2% Cloth) 3 pack Taper DAILY@04 TOP 05/28/17 04:00 05/24/18 03:59 05/28/17 01:26 (Chlorhexidine 2% Cloth) 3 pack UNSCH PRN TOP 05/27/17 23:00 (Airam-Colace) 1 tab BID PO 05/28/17 09:00 05/30/17 08:02 (Milk Of Magnesia Liq) 30 ml Q12H PRN PO 05/27/17 23:00 (Senokot) 17.2 mg Q12H PRN PO 05/27/17 23:00 (Dulcolax Supp) 10 mg DAILY PRN RECTAL 05/27/17 23:00 (Lactulose Liq) 30 ml DAILY PRN PO 05/27/17 23:00 (Pill Splitter) 1 ea UNSCH PRN OTHER 05/27/17 23:15 (Synthroid) 75 mcg DAILY@06 PO 05/28/17 06:00 05/31/17 05:59 (Synthroid) 100 mcg DAILY@0600 PO 05/28/17 06:00 05/31/17 05:59 Patient Own Medication PT OWN MED:Saxagliptin (Onglyza) 5... DAILY PO 05/28/17 09:00 Hold Azithromycin 500 mg/Sodium Chloride 250 ml @ 250 mls/hr Q24H IV 05/28/17 08:00 05/31/17 10:02 (Zosyn 3.375 Gm Premix) 50 ml @ 100 mls/hr Q6H IV 05/28/17 06:00 05/31/17 12:59 (Heparin Inj) 5,000 units Q8HR SQ 05/28/17 06:00 05/31/17 13:04 (Pepcid Inj) 10 mg Q12HR IV PUSH 05/28/17 21:00 05/31/17 09:52 (Apresoline) 50 mg BID PO 05/28/17 21:00 05/29/17 10:52 Vital Signs / I&O Vital Signs Date Time Temp Pulse Resp B/P Pulse Ox O2 Delivery O2 Flow Rate FiO2 05/31/17 11:04 96 Nasal Cannula 5.00 05/31/17 08:00 96.8 74 18 167/73 97 05/31/17 04:10 97.9 78 18 134/56 99 05/31/17 01:33 95 Nasal Cannula 5.00 05/31/17 00:20 97.8 89 17 170/65 93 05/30/17 21:15 97.1 85 18 155/59 93 05/30/17 16:59 97.6 76 16 152/63 92 05/30/17 13:45 97.1 74 14 118/47 93 I/O 05/30/17 05/30/17 05/30/17 05/31/17 05/31/1705/31/17 06:59 14:59 22:59 06:59 14:59 22:59 Intake Total 565 ml 720 ml 480 ml 298 ml Balance 565 ml 720 ml 480 ml 298 ml Intake Oral 240 ml 720 ml 480 ml IV Total 300 ml 298 ml Packed Cells 25 ml # Voids 6 6 2 # Bowel Movements 0 3 0 Physical Exam GENERAL: Well-nourished, well-developed patient. SKIN: Warm and dry. HEAD: Normocephalic. EYES: No scleral icterus. No injection or drainage. NECK: Supple, trachea midline. No JVD or lymphadenopathy. CARDIOVASCULAR: Regular rate and rhythm without murmurs, gallops, or rubs. RESPIRATORY: Breath sounds equal bilaterally. No accessory muscle use. GASTROINTESTINAL: Abdomen soft, non-tender, nondistended. EXTREMITIES: No cyanosis, or edema. NEUROLOGICAL: Awake, alert, and oriented x 3. Non-focal. Laboratory Laboratory Tests Test 05/31/17 02:39 White Blood Count 6.2 TH/MM3 Red Blood Count 2.69 MIL/MM3 Hemoglobin 8.4 GM/DL Hematocrit 24.1 % Mean Corpuscular Volume 89.8 FL Mean Corpuscular Hemoglobin 31.4 PG Mean Corpuscular Hemoglobin 35.0 % Concent Red Cell Distribution Width 14.7 % Platelet Count 211 TH/MM3 Mean Platelet Volume 7.1 FL Neutrophils (%) (Auto) 69.9 % Lymphocytes (%) (Auto) 9.5 % Monocytes (%) (Auto) 8.3 % Eosinophils (%) (Auto) 11.6 % Basophils (%) (Auto) 0.7 % Neutrophils # (Auto) 4.3 TH/MM3 Lymphocytes # (Auto) 0.6 TH/MM3 Monocytes # (Auto) 0.5 TH/MM3 Eosinophils # (Auto) 0.7 TH/MM3 Basophils # (Auto) 0.0 TH/MM3 CBC Comment DIFF FINAL Differential Comment Sodium Level 145 MEQ/L Potassium Level 3.7 MEQ/L Chloride Level 109 MEQ/L Carbon Dioxide Level 27.7 MEQ/L Anion Gap 8 MEQ/L Blood Urea Nitrogen 34 MG/DL Creatinine 1.82 MG/DL Estimat Glomerular Filtration 27 ML/MIN Rate Random Glucose 174 MG/DL Calcium Level 8.4 MG/DL Imaging Last Impressions Chest X-Ray 05/28/17 0000 Signed Impressions: Service Date/Time: Sunday, May 28, 2017 00:06 - CONCLUSION: Slight improvement in aeration Jose Mooney MD Assessment and Plan Problem List: (1) CAD (coronary artery disease) Assessment and Plan: She did complain of some mild chest pain preceding her respiratory distress and does have multiple cardiovascular risk factors, thus an ischemic etiology is obviously concerning. Ideally we would like to proceed with heart catheterization for further evaluation. However, her profound anemia and renal insufficiency, certainly pose significant increase in risk with catheterization and may even be prohibitive at this point. Consider GI and Heme/Onc evaluation. (2) Pulmonary edema (3) HTN (hypertension) (4) DM (diabetes mellitus) (5) Acute kidney injury (6) Iron deficiency anemia (7) Pneumonia (8) Anemia Problem Qualifiers (1) Pulmonary edema: Qualified Code: J81.0 - Acute pulmonary edema Neptali Galeas MD May 31, 2017 13:37
[2017-06-01] MEDS: PIPERACIL-TAZO 3.375 GM PREMIX 50 ML IV SCH ×3 (00:56→11:51)
[2017-06-01 03:40] VITALS: BP 144/65; PULSE 74; RESP 19; TEMP 96.4; O2SAT 95
[2017-06-01] MEDS: CHLORHEXIDINE GLUCONATE 2 % 1 PACK (2 CLOTHS) TOP SCH (04:00)
[2017-06-01] MEDS: LEVOTHYROXINE SODIUM 100 MCG TAB PO SCH (06:49)
[2017-06-01] MEDS: LEVOTHYROXINE SODIUM 75 MCG TAB PO SCH (06:49)
[2017-06-01 07:04] LABS: HEMATOCRIT 24.9 % (35.0-46.0); MEAN CELL VOLUME 91.7 FL (80.0-100.0); MEAN CORPUSCULAR HGB CONC 33.8 % (32.0-36.0); PLATELET COUNT 207 TH/MM3 (150-450); RED BLOOD COUNT 2.71 MIL/MM3 (4.00-5.30); RED CELL DISTRIBUTION WIDTH 14.5 % (11.6-17.2); REVIEW FLAG FINAL; WHITE BLOOD COUNT 5.3 TH/MM3 (4.0-11.0)
[2017-06-01 07:21] LABS: BICARBONATE 29.6 MEQ/L (21.0-32.0)
[2017-06-01] MEDS: FAMOTIDINE 20 MG/2 ML VIAL IV PUSH SCH (07:42)
[2017-06-01] MEDS: RANOLAZINE 500 MG EXTENDED RELEASE TAB PO SCH (07:42)
[2017-06-01] MEDS: AZITHROMYCIN INJ 500 MG in SODIUM CHLOR 0.9% 250 ML INJ 250 ML IV SCH (07:42)
[2017-06-01] MEDS: CARVEDILOL 12.5 MG TAB PO SCH (07:43)
[2017-06-01] MEDS: CLOPIDOGREL 75 MG TAB PO SCH (07:43)
[2017-06-01] MEDS: METHYLDOPA 500 MG TAB PO SCH (07:44)
[2017-06-01] MEDS: PRAVASTATIN SOD 80 MG TAB PO SCH (07:44)
[2017-06-01] MEDS: DOCUSATE SODIUM 50 MG/SENNA 8.6 MG TAB PO SCH (07:44)
[2017-06-01] MEDS: CILOSTAZOL 100 MG TAB PO SCH (07:44)
[2017-06-01] MEDS: SODIUM CHLORIDE 0.9% FLUSH 10 ML FLUSH SCH (07:46)
[2017-06-01 08:00] VITALS: BP 152/60; PULSE 72; RESP 18; TEMP 96.4; O2SAT 93
--- NOTE | 2017-06-01 08:55 | HHI.PR ---
Subjective Remarks F/U HF. She is doing okay just ambulated in the room. Patient told to ambulate in the hallway before being discharged today. Discussed with RN, Norvasc 5 mg by mouth 1 for systolic blood pressure 169. Seen with . Objective Vitals Vital Signs Date Time Temp Pulse Resp B/P Pulse Ox O2 Delivery O2 Flow Rate FiO2 06/01/17 04:11 94 2.00 06/01/17 03:40 96.4 74 19 144/65 95 06/01/17 00:55 Nasal Cannula 05/31/17 22:30 3.00 05/31/17 21:29 100 Nasal Cannula 4.00 05/31/17 20:11 97.2 73 17 162/61 98 05/31/17 16:37 5.00 05/31/17 16:00 97.7 76 18 147/81 96 05/31/17 12:00 98.0 66 18 129/61 99 05/31/17 11:04 96 Nasal Cannula 5.00 I/O 05/31/17 05/31/17 05/31/17 06/01/17 06/01/17 06/01/17 07:00 15:00 23:00 07:00 15:00 23:00 Intake Total 480 ml 348 ml 720 ml 200 ml Balance 480 ml 348 ml 720 ml 200 ml Intake Oral 480 ml 720 ml 200 ml IV Total 348 ml # Voids 2 6 3 # Bowel Movements 0 0 0 Result Diagram: 06/01/17 0610 06/01/17 0610 Imaging Last Impressions Chest X-Ray 05/28/17 0000 Signed Impressions: Service Date/Time: Sunday, May 28, 2017 00:06 - CONCLUSION: Slight improvement in aeration Jose Mooney MD Objective Remarks Regular rate and rhythm ++systolic murmur, gallops, or rubs. Decreased breaths sounds. No accessory muscle use. Abdomen soft, non-tender, nondistended. No cyanosis, trace edema. Procedures none A/P Problem List: (1) Anemia ICD Code: D64.9 Status: Acute (2) Acute kidney injury ICD Code: N17.9 Status: Acute (3) CHF (congestive heart failure) ICD Code: I50.9 Status: Acute Assessment and Plan 77 yo female with hypertension, hyperlipidemia, pulmonary hypertension, and carotid artery disease status post CEA presents to the ED and respirations distress. Patient was placed on BiPAP and was initially managed by critical care. She was weaned off her BiPAP on 05/28 and symptomatically felt better. Care was transferred to hospitalist. Patient has been stable on nasal canula. She had some anemia in the hospital, this is a chronic problem for her. Hemoccult negative. She received 1 units PRBCS and felt much better. Dizziness. Improved - cause: anemia, hypotension, dehydration HLIV FAUSTO- improving. She has chronic kidney disease stage III - likely from lasix - Status post gentle IV hydration Acute respiratory failure. Resolving - Likely multifactorial including Pneumonia, flash pulmonary edema - Pneumonia is being treated with Zosyn & Azithromycin, blood cultures obtained and are negative to date, will d/c on 5 days of azithromycin. Repeat chest x- ray in 6 weeks Possible Community Acquired Pneumonia - Empiric antibiotics - Follow-up cultures negative to date - See imaging above Flash pulmonary edema with hypoxia- concern at this time is for an ischemic event. Likely contributed by - CXR is consistent with this, BNP also elevated. Diuresis as above. Strict I & Os, fluid restrict. She is diuresing well. - trop neg x 3 - Consult patient's breakfast attendant Dr. Cid, Dr. Benites has seen and evaluated the patient: Ideally would like to proceed with cardiac cathet. - Dr. Cid saw patient 05/31, okay to d.c home, further management as an outpatient, anemia continues to be an issue that complicates things - Echo April 2017 showed aortic stenosis - She failed walk test and will need home oxygen Hypothyroidism - Synthroid Hypertension - Restart Norvasc and hydralazine - Coreg and methyldopa (continued) Diabetes mellitus - Glargine and insulin sliding scale Anemia - acute, normocytic history of IVDA followed by Dr. Evangelista - hb 7.4, 9.9 on admission. received 1 unit PRBCS, 2 were ordered, Hb 8.4 which is stable - hemoccult negative, reports a recent colonoscopy. Patient to follow-up with advanced gastroenterology was seen by Dr. Wang Peripheral vascular disease - Cilostazol and Plavix DVT GI prophylaxis - Teds SCDs Discharge Planning Stable for discharge if ambulating Morro Zepeda MD Jun 01, 2017 08:55 Resp walk test pending. Morro Zepeda MD Jun 01, 2017 08:55
--- NOTE | 2017-06-01 09:59 | HHI.FF ---
Face to Face Verification Diagnosis: (1) Flash pulmonary edema Home Health Nursing Order: Oxygen administration education I have seen patient Ileana Orozco on 06/01/17. My clinical findings support the need for the requested home health care services because: Patient has SOB I certify that my clinical findings support that this patient is homebound because: Poor cardiac reserve Morro Zepeda MD Jun 01, 2017 09:58
[2017-06-01] MEDS ORDERED: OXYGENDME NAS.CANULA (10:00)
[2017-06-01 12:00] VITALS: BP 169/86; PULSE 73; RESP 18; TEMP 95.9; O2SAT 93
[2017-06-01] MEDS ORDERED: amLODIPine BESYLATE 5 MG TAB PO ONE (13:15)
--- NOTE | 2017-06-01 13:19 | HHI.DS ---
Discharge Summary Admission Date May 27, 2017 at 22:06 Discharge Date: Jun 01, 2017 Admitting Diagnosis Pulmonary Edema (1) Anemia ICD Code: D64.9 Diagnosis: Principal (2) Acute kidney injury ICD Code: N17.9 Diagnosis: Principal (3) Flash pulmonary edema ICD Code: J81.0 Diagnosis: Principal Procedures none Brief History - From Admission 77-year-old female with history of hypertension, hyperlipidemia, pulmonary hypertension, carotid artery disease status post CEA tp left carotid, presents complaining of of severe respiratory distress. As per EMS, patient was at a restaurant today, reports that all of a sudden she became short of breath. Patient reports that she was recently admitted for flash pulmonary edema on April 22, 2017. EMS administered 2 sublingual nitroglycerin sprays as well as 100 mg of IV Lasix. Reports that upon their arrival to scene, patient's oxygen saturation was 60% on room air. Patient was placed on CPAP and her saturations increased to 70%. Upon arrival to the emergency room, patient was placed on BiPAP had 100%. Pulse ox was 99%. CBC/BMP: 06/01/17 0610 06/01/17 0610 Significant Findings Laboratory Tests Test 05/29/17 05/30/17 05/31/17 06/01/17 17:15 06:00 02:39 06:10 Antibody Screen POSITIVE Red Blood Count 2.35 MIL/MM3 2.69 MIL/MM3 2.71 MIL/MM3 (4.00-5.30) (4.00-5.30) (4.00-5.30) Hemoglobin 7.4 GM/DL 8.4 GM/DL 8.4 GM/DL (11.6-15.3) (11.6-15.3) (11.6-15.3) Hematocrit 21.4 % 24.1 % 24.9 % (35.0-46.0) (35.0-46.0) (35.0-46.0) Monocytes (%) (Auto) 9.8 % (0.0-8.0) 8.3 % (0.0-8.0) Eosinophils (%) (Auto) 11.9 % 11.6 % (0.0-4.0) (0.0-4.0) Lymphocytes # (Auto) 0.6 TH/MM3 0.6 TH/MM3 (1.0-4.8) (1.0-4.8) Eosinophils # (Auto) 0.6 TH/MM3 0.7 TH/MM3 (0-0.4) (0-0.4) Blood Urea Nitrogen 40 MG/DL (7-18) 34 MG/DL (7-18) 30 MG/DL (7-18) Creatinine 2.24 MG/DL 1.82 MG/DL 1.44 MG/DL (0.50-1.00) (0.50-1.00) (0.50-1.00) Estimat Glomerular Filtration 21 ML/MIN (>89) 27 ML/MIN (>89) 35 ML/MIN (>89) Rate Random Glucose 117 MG/DL 174 MG/DL 107 MG/DL (74-106) (74-106) (74-106) Calcium Level 8.4 MG/DL 8.4 MG/DL (8.5-10.1) (8.5-10.1) Chloride Level 109 MEQ/L 109 MEQ/L (98-107) (98-107) Mean Platelet Volume 6.9 FL (7.0-11.0) Imaging Last Impressions Chest X-Ray 05/28/17 0000 Signed Impressions: Service Date/Time: Sunday, May 28, 2017 00:06 - CONCLUSION: Slight improvement in aeration Jose Mooney MD PE at Discharge Regular rate and rhythm ++systolic murmur, gallops, or rubs. Decreased breaths sounds. No accessory muscle use. Abdomen soft, non-tender, nondistended. No cyanosis, trace edema. Hospital Course 77 yo female with hypertension, hyperlipidemia, pulmonary hypertension, and carotid artery disease status post CEA presents to the ED and respirations distress. Patient was placed on BiPAP and was initially managed by critical care. She was weaned off her BiPAP on 05/28 and symptomatically felt better. Care was transferred to hospitalist. Patient has been stable on nasal canula. She had some anemia in the hospital, this is a chronic problem for her. Hemoccult negative. She received 1 units PRBCS and felt much better. Dizziness. Improved - cause: anemia, hypotension, dehydration HLIV FAUSTO- improving. She has chronic kidney disease stage III - likely from lasix - Status post gentle IV hydration Acute respiratory failure. Resolving - Likely multifactorial including Pneumonia, flash pulmonary edema - Pneumonia is being treated with Zosyn & Azithromycin, blood cultures obtained and are negative to date, will d/c on 5 days of azithromycin. Repeat chest x- ray in 6 weeks Possible Community Acquired Pneumonia - Empiric antibiotics - Follow-up cultures negative to date - See imaging above Flash pulmonary edema with hypoxia- concern at this time is for an ischemic event. Likely contributed by - CXR is consistent with this, BNP also elevated. Diuresis as above. Strict I & Os, fluid restrict. She is diuresing well. - trop neg x 3 - Consult patient's esthetics instructor Dr. Cid, Dr. Benites has seen and evaluated the patient: Ideally would like to proceed with cardiac cathet. - Dr. Cid saw patient 05/31, okay to d.c home, further management as an outpatient, anemia continues to be an issue that complicates things - Echo April 2017 showed aortic stenosis - She failed walk test and will need home oxygen Hypothyroidism - Synthroid Hypertension - Restart Norvasc and hydralazine - Coreg and methyldopa (continued) Diabetes mellitus - Glargine and insulin sliding scale Anemia - acute, normocytic history of IVDA followed by Dr. Evangelista - hb 7.4, 9.9 on admission. received 1 unit PRBCS, 2 were ordered, Hb 8.4 which is stable - hemoccult negative, reports a recent colonoscopy. Patient to follow-up with advanced gastroenterology was seen by Dr. Wang Peripheral vascular disease - Cilostazol and Plavix DVT GI prophylaxis - Teds SCDs Pt Condition on Discharge: Stable Discharge Disposition: Discharge Home Discharge Time: > 30 minutes Discharge Instructions DIET: Follow Instructions for: Heart Healthy Diet, Diabetic Diet Activities you can perform: Regular-No Restrictions Activities to Avoid: Driving Follow up Referrals: Cardiology - 1 Week PCP Follow-up - 1 Week SNF/[facility]/ with [facility] New Orders: BASIC METABOLIC PROF - 06/06/17 X-RAY CHEST PA & LAT - 6 Weeks New Medications: Oxygen (O2) (Oxygen (O2)) Device 2 LITER CHRYSTAL.CANULA CONTINUOUS Oxygen Concentrator Portable Gaseous 2 L/min via Nasal Canula Continuous For 99 months Prevent Hypoxemia #2 CYLINDER Changed Medications: Furosemide (Furosemide) 20 Mg Tab 20 MG PO DAILY pulmonary edema #30 Ref 0 TAB (Changed from: Furosemide (Lasix) 40 Mg Tab 40 Mg PO DAILY #30 TAB Ref 0) Continued Medications: Amlodipine (Amlodipine) 10 Mg Tab 10 MG PO DAILY Blood Pressure Management #30 Ref 0 TAB Carvedilol (Carvedilol) 12.5 Mg Tab 12.5 MG PO BID #60 Ref 0 TAB Cilostazol (Cilostazol) 100 Mg Tab 100 MG PO BID INTERMITTENT CLAUDICATION Ref 0 TAB Clopidogrel (Plavix) 75 Mg Tab 75 MG PO DAILY Blood Clot Prevention #30 Ref 0 TAB Coenzyme Q10 (Ubidecarenone) (Co Q 10) 100 Mg Cap 200 MG PO DAILY Hydralazine (Hydralazine) 100 Mg Tab 50 MG PO BID Take with meals Blood Pressure Management Ref 0 TAB Insulin Glargine Inj (Lantus Inj) 1,000 Unit/10 Ml Vial 16 UNITS SQ HS Blood Sugar Management Ref 0 VIAL Levothyroxine (Synthroid) 175 Mcg Tab 175 MCG PO DAILY Thyroid #30 Ref 0 TAB Methyldopa (Methyldopa) 500 Mg Tab 500 MG PO BID Blood Pressure Management Ref 0 TAB Nitroglycerin SL (Nitrostat SL) 0.4 Mg Subl 0.4 MG SL DIRECTED 1 tablet under the tongue as needed for chest pain. Repeat every 5 minutes for a total of 3 DOSES or call 911 if NO relief. PRN CHEST PAIN #100 Ref 0 TAB.SL Potassium Chloride ER (Klor-Con 10) 10 Meq Tab 10 MEQ PO DAILY Electrolyte Replacement #30 Ref 0 TAB Pravastatin (Pravastatin) 80 Mg Tab 80 MG PO DAILY Cholesterol Management #30 Ref 0 TAB Ranolazine ER 12 HR (Ranexa ER 12 HR) 500 Mg Tab 500 MG PO BID Chest Pain #60 Ref 0 TAB Saxagliptin (Onglyza) 5 Mg Tab 5 MG PO DAILY Blood Sugar Management #30 Ref 0 TAB Discontinued Medications: Benazepril (Benazepril) 40 Mg Tab 20 MG PO BID Blood Pressure Management #30 Ref 0 TAB Morro Zepeda MD Jun 01, 2017 13:19
[2017-06-01] MEDS ORDERED: CARVEDILOL 12.5 MG TAB PO SCH ×2 (21:00)
== END 2017-06-01 14:35 | disposition home or self-care (01) | DRG 291 ==
LOC: NEPC 20:02 → NEDA 22:06 → HIMN 05-28 00:30 → N06B 05-28 13:36
PROVIDERS: ADMIT Internal Medicine; ATTEND Internal Medicine
PROC: 5A09357 Assistance with Respiratory Ventilation, Less than 24 Consecutive Hours, Continuous Positive Airway Pressure (ICD-10-PCS; 2017-05-27)
PROC: 30233N1 Transfusion of Nonautologous Red Blood Cells into Peripheral Vein, Percutaneous Approach (ICD-10-PCS; principal; 2017-05-30)
DX: I13.0 Hypertensive heart and chronic kidney disease with heart failure and stage 1 through stage 4 chronic kidney disease, or unspecified chronic kidney disease (principal); J18.9 Pneumonia, unspecified organism; J96.01 Acute respiratory failure with hypoxia; N17.9 Acute kidney failure, unspecified; I95.9 Hypotension, unspecified; E11.22 Type 2 diabetes mellitus with diabetic chronic kidney disease; E11.51 Type 2 diabetes mellitus with diabetic peripheral angiopathy without gangrene; I27.2 Other secondary pulmonary hypertension; N18.3 Chronic kidney disease, stage 3 (moderate); E86.0 Dehydration; E78.5 Hyperlipidemia, unspecified; D50.9 Iron deficiency anemia, unspecified; E03.9 Hypothyroidism, unspecified; E78.00 Pure hypercholesterolemia, unspecified; M06.9 Rheumatoid arthritis, unspecified; I08.0 Rheumatic disorders of both mitral and aortic valves; I25.10 Atherosclerotic heart disease of native coronary artery without angina pectoris; I50.9 Heart failure, unspecified; Z86.73 Personal history of transient ischemic attack (TIA), and cerebral infarction without residual deficits
CPT/HCPCS: 36430; 36600; 51702; 71010; 76937; 80048; 80053; 81001; 82272; 82550; 82805; 83605; 83735; 83880; 84100; 84484; 85025; 85027; 85610; 85730; 86077; 86850; 86870; 86880; 86900; 86901; 86920; 86921; 86922; 87040; 87641; 93005; 94002; 94150; 94620; 94640; 94664; 94667; 94668; J0456; J1644; J1940; J2543; J3370; J7040; J7050; P9016

== ENCOUNTER 2017-06-04 21:07 | Inpatient (IN) | payer MEDICARE, OTHER ==
[~2017-06-04] VITALS: Ht 165.1 cm; Wt 89.5 kg
[~2017-06-04 21:07] MED LIST changes: -BENA40TA PO; -FURO1TAB60 PO; +FURO20TA PO; -HYDR-3800 PO; +HYDR-3801 PO
[2017-06-04 21:11] VITALS: BP 177/74; PULSE 90; RESP 19; TEMP 97
[2017-06-04 21:14] VITALS: O2SAT 100
--- NOTE | 2017-06-04 21:24 | PD ---
HPI Chief Complaint: Respiratory Distress Time Seen by Provider: 21:21 Travel History International Travel<30 days: No Contact w/Intl Traveler<30days: No Traveled to known affect area: No History of Present Illness HPI 77-year-old female with history of previous CHF, presents to the ER today brought in by EMS for several hours or worsening in shortness of breath and dyspnea on exertion, feels like her previous CHF episodes. She denies any chest pains, coughing, fevers, or other symptoms. She was put on CPAP by Jy[facility] richard with improvement in respiratory symptoms. She had been given Lasix by them as well. Modifying Factors: None Associated Signs & Symptoms: Shortness of breath Risk Factors: CHF history PFSH Past Medical History Anemia: Yes Arthritis: Yes (Rheumatoid) Asthma: No Autoimmune Disease: No Heart Rhythm Problems: No Cancer: Yes (Brain tumor) Cardiovascular Problems: Yes (CHF) High Cholesterol: Yes Chemotherapy: No Chest Pain: No Congestive Heart Failure: No COPD: No Cerebrovascular Accident: Yes (TIA) Coronary Artery Disease: Yes Diabetes: Yes (Insulin and pills) Endocrine: Yes Gastrointestinal Disorders: No Genitourinary: No Hypertension: Yes Immune Disorder: No Implanted Vascular Access Dvce: No Musculoskeletal: Yes Neurologic: Yes Psychiatric: No Reproductive: No Respiratory: Yes Radiation Therapy: No Seizures: Yes (AFTER BRAIN SURGERY) Sickle Cell Disease: No Sleep Apnea: No Thyroid Disease: Yes ?: Unknown : 1 Past Surgical History Abdominal Surgery: No Arteriovenous Shunt: Yes (2) Cardiac Surgery: Yes (CARITID ARTERY) Coronary Stent: Yes Endocrine Surgery: No Eye Surgery: Yes (cataracts) Genitourinary Surgery: No Gynecologic Surgery: No Neurologic Surgery: Yes (brain surgery for meningioma) Thoracic Surgery: No Other Surgery: Yes Social History Alcohol Use: No Tobacco Use: No (quit 25 yrs ago) Substance Use: No Allergies-Medications (Allergen,Severity, Reaction): Coded Allergies: No Known Allergies (Unverified , 06/04/17) Reported Meds & Prescriptions Reported Meds & Active Scripts Active Oxygen (O2) Device 2 Liter CHRYSTAL.CANULA CONTINUOUS Oxygen Concentrator Portable Gaseous 2 L/min via Nasal Canula Continuous For 99 months Furosemide 20 Mg Tab 20 Mg PO DAILY Klor-Con 10 (Potassium Chloride) 10 Meq Tab 10 Meq PO DAILY Reported Hydralazine (Hydralazine HCl) 100 Mg Tab 50 Mg PO BID Take with meals Lantus Inj (Insulin Glargine) 1,000 Unit/10 Ml Vial 16 Units SQ HS Co Q 10 (Coenzyme Q10 (Ubidecarenone)) 100 Mg Cap 200 Mg PO DAILY Synthroid (Levothyroxine Sodium) 175 Mcg Tab 175 Mcg PO DAILY Ranexa ER 12 HR (Ranolazine) 500 Mg Tab 500 Mg PO BID Pravastatin 80 Mg Tab 80 Mg PO DAILY Onglyza (Saxagliptin) 5 Mg Tab 5 Mg PO DAILY Nitrostat SL (Nitroglycerin) 0.4 Mg Subl 0.4 Mg SL DIRECTED PRN 1 tablet under the tongue as needed for chest pain. Repeat every 5 minutes for a total of 3 DOSES or call 911 if NO relief. Methyldopa 500 Mg Tab 500 Mg PO BID Plavix (Clopidogrel Bisulfate) 75 Mg Tab 75 Mg PO DAILY Cilostazol 100 Mg Tab 100 Mg PO BID Carvedilol 12.5 Mg Tab 12.5 Mg PO BID Amlodipine (Amlodipine Besylate) 10 Mg Tab 10 Mg PO DAILY Review of Systems Except as stated in HPI: all other systems reviewed are Neg Physical Exam Narrative GENERAL: Well-developed elderly white female patient currently in moderate respiratory distress currently on CPAP. Awake and oriented 3. Having difficulty speaking due to shortness of breath. SKIN: Focused skin assessment warm/dry. HEAD: Atraumatic. Normocephalic. EYES: Pupils equal and round. No scleral icterus. No injection or drainage. ENT: No nasal bleeding or discharge. Mucous membranes pink and moist. NECK: Trachea midline. No JVD. CARDIOVASCULAR: Regular rate and rhythm. No murmur appreciated. RESPIRATORY: Moderate accessory muscle use. Basilar Rales bilaterally. Breath sounds equal bilaterally. GASTROINTESTINAL: Abdomen soft, non-tender, nondistended. Hepatic and splenic margins not palpable. MUSCULOSKELETAL: No obvious deformities. No clubbing. No cyanosis. Bilateral pitting edema the legs. NEUROLOGICAL: Awake and alert. No obvious cranial nerve deficits. Motor grossly within normal limits. Normal speech. PSYCHIATRIC: Appropriate mood and affect; insight and judgment normal. Data Data Last Documented VS Vital Signs Date Time Temp Pulse Resp B/P Pulse Ox O2 Delivery O2 Flow Rate FiO2 06/04/17 22:04 100 40 06/04/17 21:25 CPAP 06/04/17 21:11 97.0 90 19 177/74 Orders Complete Blood Count With Diff (06/04/17 21:21) Comprehensive Metabolic Panel (06/04/17 21:21) B-Type Natriuretic Peptide (06/04/17 21:21) Ckmb (Isoenzyme) Profile (06/04/17 21:21) Troponin I (06/04/17 21:21) Iv Access Insert/Monitor (06/04/17 21:21) Ecg Monitoring (06/04/17 21:21) Oximetry (06/04/17 21:21) Oxygen Administration (06/04/17 21:21) Chest, Single Ap (06/04/17 21:21) Sodium Chloride 0.9% Flush (Ns Flush) (06/04/17 21:30) Resp Bipap / Cpap Non Invas Vt (06/04/17 21:21) Arterial Blood Gas (Abg) (06/04/17 21:49) Admit Order (Ed Use Only) (06/04/17 22:59) Labs Laboratory Tests Test 06/04/17 06/04/17 21:25 21:49 White Blood Count 9.4 TH/MM3 Red Blood Count 2.87 MIL/MM3 Hemoglobin 9.3 GM/DL Hematocrit 26.5 % Mean Corpuscular Volume 92.0 FL Mean Corpuscular Hemoglobin 32.2 PG Mean Corpuscular Hemoglobin 35.0 % Concent Red Cell Distribution Width 15.4 % Platelet Count 237 TH/MM3 Mean Platelet Volume 7.4 FL Neutrophils (%) (Auto) 81.7 % Lymphocytes (%) (Auto) 5.7 % Monocytes (%) (Auto) 7.0 % Eosinophils (%) (Auto) 5.2 % Basophils (%) (Auto) 0.4 % Neutrophils # (Auto) 7.7 TH/MM3 Lymphocytes # (Auto) 0.5 TH/MM3 Monocytes # (Auto) 0.7 TH/MM3 Eosinophils # (Auto) 0.5 TH/MM3 Basophils # (Auto) 0.0 TH/MM3 CBC Comment DIFF FINAL Differential Comment Sodium Level 143 MEQ/L Potassium Level 4.7 MEQ/L Chloride Level 108 MEQ/L Carbon Dioxide Level 29.0 MEQ/L Anion Gap 6 MEQ/L Blood Urea Nitrogen 29 MG/DL Creatinine 1.49 MG/DL Estimat Glomerular Filtration 34 ML/MIN Rate Random Glucose 158 MG/DL Calcium Level 8.8 MG/DL Total Bilirubin 0.6 MG/DL Aspartate Amino Transf 17 U/L (AST/SGOT) Alanine Aminotransferase 23 U/L (ALT/SGPT) Alkaline Phosphatase 61 U/L Total Creatine Kinase 27 U/L Troponin I LESS THAN 0.02 NG/ML B-Type Natriuretic Peptide 232 PG/ML Total Protein 6.8 GM/DL Albumin 3.1 GM/DL Blood Gas Puncture Site RT RADIAL Blood Gas Patient Temperature 98.6 Blood Gas HCO3 26 mmol/L Blood Gas Base Excess 1.2 mmol/L Blood Gas Oxygen Saturation 97 % Arterial Blood pH 7.35 Arterial Blood Partial 49 mmHg Pressure CO2 Arterial Blood Partial 147 mmHG Pressure O2 Arterial Blood Oxygen Content 11.8 Vol % Arterial Blood 1.8 % Carboxyhemoglobin Arterial Blood Methemoglobin 0.7 % Blood Gas Hemoglobin 8.4 G/DL Oxygen Delivery Device BiPAP Blood Gas Ventilator Setting [id number] Blood Gas Inspired Oxygen 60 % MDM Medical Decision Making Medical Screen Exam Complete: Yes Emergency Medical Condition: Yes Medical Record Reviewed: Yes Interpretation(s) EKG shows normal sinus rhythm at a rate of 89 bpm with no signs of acute ST-T changes. Laboratory Tests Test 06/04/17 06/04/17 21:25 21:49 Red Blood Count 2.87 MIL/MM3 (4.00-5.30) Hemoglobin 9.3 GM/DL (11.6-15.3) Hematocrit 26.5 % (35.0-46.0) Neutrophils (%) (Auto) 81.7 % (16.0-70.0) Lymphocytes (%) (Auto) 5.7 % (9.0-44.0) Eosinophils (%) (Auto) 5.2 % (0.0-4.0) Lymphocytes # (Auto) 0.5 TH/MM3 (1.0-4.8) Eosinophils # (Auto) 0.5 TH/MM3 (0-0.4) Chloride Level 108 MEQ/L (98-107) Blood Urea Nitrogen 29 MG/DL (7-18) Creatinine 1.49 MG/DL (0.50-1.00) Estimat Glomerular Filtration 34 ML/MIN (>89) Rate Random Glucose 158 MG/DL (74-106) Troponin I LESS THAN 0.02 NG/ML (0.02-0.05) B-Type Natriuretic Peptide 232 PG/ML (0-100) Albumin 3.1 GM/DL (3.4-5.0) Arterial Blood pH 7.35 (7.380-7.420) Arterial Blood Partial 49 mmHg (38-42) Pressure CO2 Arterial Blood Partial 147 mmHG Pressure O2 (61-120) Arterial Blood Oxygen Content 11.8 Vol % (12.0-20.0) Blood Gas Hemoglobin 8.4 G/DL (12.0-16.0) Last 24 hours Impressions Chest X-Ray 06/04/172120 Signed Impressions: Service Date/Time: Sunday, June 04, 2017 21:45 - CONCLUSION: Increasing airspace opacities in the right lung and persistent patchy opacities in the left lung. Moisés Youssef MD Differential Diagnosis Shortness of breathCHF exacerbation versus pneumonia versus COPD Narrative Course Chest x-ray indicative of pulmonary edema and CHF. Patient was continued on BiPAP in the ER. At this point, my plan would be to admit the patient for further treatment. Case is discussed with Dr. Key for admission. She would like me to place the patient into ICU due to BiPAP use. Aggregate critical care time was 25 minutes. Time to perform other separately billable procedures was not included in the critical care time. My time did not include minutes spent treating any other patients simultaneously or on activities that did not directly contribute to the patient's treatment. The services I provided to this patient were to treat and/or prevent clinically significant deterioration that could result in: Worsening pulmonary edema, respiratory failure I provided critical care services requiring my management, as noted below: Chart data review, documentation time, medication orders and management, vital sign assessments/reviewing monitor data, ordering and reviewing lab tests, ordering and interpreting/reviewing x-rays and diagnostic studies, care of the patient and discussion of the patient with the admitting physicians. Diagnosis Primary Impression: Pulmonary edema Additional Impression: CHF (congestive heart failure) Admitting Information Admitting Physician Requests: Admit Tony Teran MD Jun 04, 2017 21:24
[2017-06-04] MEDS ORDERED: SODIUM CHLORIDE 0.9% FLUSH 10 ML FLUSH IVF PRN (21:30)
[2017-06-04 21:54] LABS: AUTOMATED NEUTROPHIL # 7.7 TH/MM3 (1.8-7.7); BASOPHIL % 0.4 % (0.0-2.0); EOSINOPHIL # 0.5 TH/MM3 (0-0.4); EOSINOPHIL % 5.2 % (0.0-4.0); HEMATOCRIT 26.5 % (35.0-46.0); HEMO FLAGS DIFF FINAL; LYMPH % 5.7 % (9.0-44.0); LYMPHOCYTE # 0.5 TH/MM3 (1.0-4.8); MEAN CORPUSCULAR HEMOGLOBIN 32.2 PG (27.0-34.0); NEUT % 81.7 % (16.0-70.0); PLATELET COUNT 237 TH/MM3 (150-450); RED BLOOD COUNT 2.87 MIL/MM3 (4.00-5.30); RED CELL DISTRIBUTION WIDTH 15.4 % (11.6-17.2); WHITE BLOOD COUNT 9.4 TH/MM3 (4.0-11.0)
[2017-06-04 22:01] LABS: BLOOD GAS BASE EXCESS 1.2 mmol/L (-2-2); BLOOD GAS CARBOXYHEMOGLOBIN 1.8 % (0-4); BLOOD GAS HCO3 26 mmol/L (22-26); BLOOD GAS METHEMOGLOBIN 0.7 % (0-2); BLOOD GAS O2 HGB SATURATION 97 % (90-100); BLOOD GAS OXYGEN CONTENT 11.8 Vol % (12.0-20.0); BLOOD GAS PCO2 49 mmHg (38-42); BLOOD GAS PO2 147 mmHG (61-120); BLOOD GAS TOTAL HGB 8.4 G/DL (12.0-16.0); CRITICAL VALUE NO; DRAW SITE RT RADIAL; FIO2 60 %; NUMBER OF ARTERIAL PUNCTURES 1; OXYGEN DEVICE BiPAP; STAT YES; TEMP CORR TO 98.6; ULNAR PULSE PRESENT; VENT SETTINGS IPAP12/EPAP5
--- NOTE | 2017-06-04 22:02 | RADRPT ---
EXAM DATE/TIME: 06/04/2017 21:45 [facility] COMPARISON: CHEST SINGLE AP, May 28, 2017, 0:06. INDICATIONS : Shortness of breath. MEDICAL HISTORY : Hypertension. Congestive heart failure. Diabetes mellitus type II. SURGICAL HISTORY : None. ENCOUNTER: Initial ACUITY: 2 days PAIN SCORE: 0/10 LOCATION: chest FINDINGS: Increasing partially consolidative infiltrates in the medial right lower lung and new areas of infilt rate in the right suprahilar region. Stable patchy infiltrates in left lower lung. Both hemidiaphra gms remain well delineated. Heart is normal size. CONCLUSION: Increasing airspace opacities in the right lung and persistent patchy opacities in the left lung. Moisés Youssef MD on June 04, 2017 at 21:59 Board Certified Radiologist. This report was verified electronically.
[2017-06-04 22:04] VITALS: O2SAT 100
[2017-06-04 22:24] LABS: ALT (GPT) 23 U/L (10-53); ANION GAP 6 MEQ/L (5-15); AST (GOT) 17 U/L (15-37); BLOOD UREA NITROGEN 29 MG/DL (7-18); CHLORIDE 108 MEQ/L (98-107); GLOMERULAR FILTRATION RATE 34 ML/MIN (>89); POTASSIUM 4.7 MEQ/L (3.5-5.1); SODIUM (NA) 143 MEQ/L (136-145)
[2017-06-04 22:28] LABS: ALKALINE PHOSPHATASE 61 U/L (45-117); TOTAL BILIRUBIN ADULT 0.6 MG/DL (0.2-1.0)
[2017-06-04 22:34] LABS: CREATINE KINASE 27 U/L (26-192)
[2017-06-04 23:00] VITALS: BP 156/67; PULSE 79; RESP 18; O2SAT 96
--- NOTE | 2017-06-04 23:13 | HHI.HP ---
HPI Service [facility] Primary Care Physician Unknown Admission Diagnosis pulmonary edema/CHF exacerbation/BiPAP Diagnoses: (1) Respiratory failure Diagnosis: Principal (2) CHF (congestive heart failure) Diagnosis: Principal (3) Renal insufficiency Diagnosis: Principal (4) HTN (hypertension) Diagnosis: Principal (5) DM (diabetes mellitus) Diagnosis: Principal Travel History International Travel<30 Days: No Contact w/Intl Traveler <30 Da: No Traveled to Known Affected Are: No History of Present Illness This is a 77-year-old female with a PMH of CHF (Echo 04/15/17 w/ EF 50-55%, Mod- Severe Pulm HTN 62mmHg and Aortic Stenosis), Rheumatoid Arthritis, DM, HTN and h /o TIA who was brought to the ER by EMS secondary to severe SOB and hypoxia. Per EMS report, patient found to have O2 sat <50% on RA, given Lasix 100mg IV and started on CPAP w/ improvement of O2 to 89%. Recent admit 05/27-06/01/17 for similar presentation, admitted initially to ICU on BIPAP at that time, found to have CHF exacerbation, s/p eval by Dr. Cid w/ whom she follows, plan for cardiac cath, however pt w/ anemia requiring transfusion and instead plan for further management as outpatient. On arrival tonight, BP 177/74, HR 90, O2 sat 100% on BiPAP, FiO2 60%. Temp 97. WBC normal, elevated neutrophil count. Creatinine 1.49, previously 1.44 on 06/01/17. Troponin negative. BNP 232. CXR with increasing airspace opacities in the right lung and persistent patchy opacities in the left lung. Review of Systems Except as stated in HPI: all other systems reviewed are Neg ROS: 14 point review of systems otherwise negative. Past Family Social History Past Medical History PMH: CHF (Echo 04/15/17 w/ EF 50-55%, Mod-Severe Pulm HTN 62mmHg and Aortic Stenosis), Rheumatoid Arthritis, DM, HTN and h/o TIA Past Surgical History PAST SURGICAL HISTORY: Cardiac Stent, Brain Surgery for Meningioma, Carotid Endarterectomy, Cataract Surgery Allergies: Coded Allergies: No Known Allergies (Unverified , 06/04/17) Family History PAST FAMILY HISTORY: Reviewed. No h/o DM or CAD Social History PAST SOCIAL HISTORY: Negative for alcohol, tobacco or drugs. Physical Exam Vital Signs Vital Signs Date Time Temp Pulse Resp B/P Pulse Ox O2 Delivery O2 Flow Rate FiO2 06/04/17 22:04 100 40 06/04/17 21:25 100 CPAP 100 06/04/17 21:14 100 60 06/04/17 21:14 100 BiPAP 60 06/04/17 21:11 97.0 90 19 177/74 Physical Exam PE: GENERAL: Elderly white female in no acute distress. Currently on BiPAP HEENT: PERRLA, EOMI. No scleral icterus or conjunctival pallor. No lid lag or facial droop. CARDIOVASCULAR: Regular rate and rhythm. No obvious murmurs to auscultation. No chest tenderness to palpation. RESPIRATORY: No obvious rhonchi or wheezing. Clear to auscultation. Decreased breath sounds at bases bilaterally. GASTROINTESTINAL: Abdomen soft, non-tender, nondistended. BS normal. MUSCULOSKELETAL: Extremities without clubbing, cyanosis, or edema. No obvious deformities. NEUROLOGICAL: Awake, alert and oriented x4. No focal neurologic deficits. Moving both upper and lower extremities spontaneously. Laboratory Laboratory Tests Test 06/04/17 06/04/17 21:25 21:49 White Blood Count 9.4 Red Blood Count 2.87 Hemoglobin 9.3 Hematocrit 26.5 Mean Corpuscular Volume 92.0 Mean Corpuscular Hemoglobin 32.2 Mean Corpuscular Hemoglobin 35.0 Concent Red Cell Distribution Width 15.4 Platelet Count 237 Mean Platelet Volume 7.4 Neutrophils (%) (Auto) 81.7 Lymphocytes (%) (Auto) 5.7 Monocytes (%) (Auto) 7.0 Eosinophils (%) (Auto) 5.2 Basophils (%) (Auto) 0.4 Neutrophils # (Auto) 7.7 Lymphocytes # (Auto) 0.5 Monocytes # (Auto) 0.7 Eosinophils # (Auto) 0.5 Basophils # (Auto) 0.0 CBC Comment DIFF FINAL Differential Comment Sodium Level 143 Potassium Level 4.7 Chloride Level 108 Carbon Dioxide Level 29.0 Anion Gap 6 Blood Urea Nitrogen 29 Creatinine 1.49 Estimat Glomerular Filtration 34 Rate Random Glucose 158 Calcium Level 8.8 Total Bilirubin 0.6 Aspartate Amino Transf 17 (AST/SGOT) Alanine Aminotransferase 23 (ALT/SGPT) Alkaline Phosphatase 61 Total Creatine Kinase 27 Troponin I LESS THAN 0.02 B-Type Natriuretic Peptide 232 Total Protein 6.8 Albumin 3.1 Blood Gas Puncture Site RT RADIAL Blood Gas Patient Temperature 98.6 Blood Gas HCO3 26 Blood Gas Base Excess 1.2 Blood Gas Oxygen Saturation 97 Arterial Blood pH 7.35 Arterial Blood Partial 49 Pressure CO2 Arterial Blood Partial 147 Pressure O2 Arterial Blood Oxygen Content 11.8 Arterial Blood 1.8 Carboxyhemoglobin Arterial Blood Methemoglobin 0.7 Blood Gas Hemoglobin 8.4 Oxygen Delivery Device BiPAP Blood Gas Ventilator Setting IPAP12/[id number] Blood Gas Inspired Oxygen 60 Result Diagram: 06/04/17212406/04/172124 Assessment and Plan Problem List: (1) Respiratory failure ICD Code: J96.90 Status: Acute (2) CHF (congestive heart failure) ICD Code: I50.9 Status: Acute (3) Renal insufficiency ICD Code: N28.9 Status: Acute (4) HTN (hypertension) ICD Code: I10 Status: Acute (5) DM (diabetes mellitus) ICD Code: E11.9 Status: Acute Assessment and Plan A/P: 1. Respiratory Failure: Multifactorial-CHF/Pulm HTN. Acute Respiratory Failure w/ Hypoxia, O2 sat <50% on RA per EMS report, requiring BIPAP, currently on 40% FIO2 w/ O2 sat 96%. Wean as tolerated. DuoNeb. 2. CHF: Acute on Chronic. Diastolic. Echo 04/15/17 w/ EF 50-55%, Mod-Severe Pulm HTN 62mmHg and Aortic Stenosis. S/p Lasix 100mg IV by EMS, BNP 232. CXR w / increasing airspace opacities right lung and persistent patchy opacities left lung, images reviewed by me. Continue w/ diuresis. Monitor I/O. Follows w/ Dr. Cid as outpatient, will consult as needed. 3. Renal Insufficiency: Acute on Chronic. Creatinine 1.49, previously 1.44 on 06/01/17. Will monitor, caution w/ diuresis. 4. HTN: BP 170's on arrival, likely compounded by respiratory distress, currently BP 150's. Will monitor, resume PO meds once weaned off BIPAP. 5. DM: Sliding scale w/ Accu-Cheks. 6. DVT Prophylaxis: SCD/Teds. 7. Social work for d/c planning as needed. 8. Case discussed w/ ER physician at length. Physician Certification 2 Midnight Certification Type: Admission for Inpatient Services Order for Inpatient Services The services are ordered in accordance with Medicare regulations or non- Medicare payer requirements, as applicable. In the case of services not specified as inpatient-only, they are appropriately provided as inpatient services in accordance with the 2-midnight benchmark. Estimated LOS (days): 2 days is the estimated time the patient will need to remain in the hospital, assuming treatment plan goals are met and no additional complications. Post-Hospital Plan: Not yet determined Michelle Watt MD Jun 04, 2017 23:13
[2017-06-04] MEDS ORDERED: SENNOSIDES 8.6 MG TAB PO PRN (23:15)
[2017-06-04] MEDS ORDERED: DEXTROSE 50% IN WATER 50 ML VIAL(D50) IV PRN (23:15)
[2017-06-04] MEDS ORDERED: RESP: ALBUTEROL 2.5 MG/IPRATROPIUM 0.5 MG NEB (PRN) NEB (23:15)
[2017-06-04] MEDS ORDERED: CHLORHEXIDINE GLUCONATE 2 % 1 PACK (2 CLOTHS) TOP PRN (23:15)
[2017-06-04] MEDS ORDERED: MORPHINE SULFATE 4 MG/ML INJ IV PRN (23:15)
[2017-06-04] MEDS ORDERED: ONDANSETRON HCL 4 MG/2 ML VIAL IVP PRN (23:15)
[2017-06-04] MEDS ORDERED: LACTULOSE SYRUP 20 GM/30 ML CUP PO PRN (23:15)
[2017-06-04] MEDS ORDERED: ACETAMINOPHEN 325 MG TAB PO PRN (23:15)
[2017-06-04] MEDS ORDERED: MISCELLANEOUS NURSING INFORMATION XX SCH (23:15)
[2017-06-04] MEDS ORDERED: MAGNESIUM HYDROXIDE SUSP 30 ML CUP PO PRN (23:15)
[2017-06-04] MEDS ORDERED: BISACODYL 10 MG SUPP RECTAL PRN (23:15)
[2017-06-04] MEDS ORDERED: SODIUM CHLORIDE 0.9% FLUSH 10 ML FLUSH IV FLUSH PRN (23:15)
[2017-06-04] MEDS ORDERED: GLUCAGON 1 MG/ML VIAL OTHER PRN (23:15)
[2017-06-04] MEDS ORDERED: ACETAMINOPHEN/HYDROcodone 325 MG/5 MG TAB PO PRN (23:15)
[2017-06-04 23:35] VITALS: O2SAT 96
[2017-06-04 23:56] VITALS: O2SAT 96
[2017-06-05] VITALS (17 sets, daily range): BP systolic 145–166; BP diastolic 64–71; PULSE 72–91; RESP 15–21; TEMP 97.9–100.3; O2SAT 82–99
[2017-06-05] MEDS: CHLORHEXIDINE GLUCONATE 2 % 1 PACK (2 CLOTHS) TOP SCH (00:17)
[2017-06-05 06:06] LABS: AUTOMATED NEUTROPHIL # 4.6 TH/MM3 (1.8-7.7); BASOPHIL % 0.3 % (0.0-2.0); EOSINOPHIL # 0.3 TH/MM3 (0-0.4); EOSINOPHIL % 4.2 % (0.0-4.0); HEMATOCRIT 25.5 % (35.0-46.0); LYMPH % 12.5 % (9.0-44.0); LYMPHOCYTE # 0.8 TH/MM3 (1.0-4.8); MEAN CELL VOLUME 92.4 FL (80.0-100.0); MEAN CORPUSCULAR HEMOGLOBIN 30.2 PG (27.0-34.0); MEAN CORPUSCULAR HGB CONC 32.7 % (32.0-36.0); MONO % 8.8 % (0.0-8.0); NEUT % 74.2 % (16.0-70.0); PLATELET COUNT 223 TH/MM3 (150-450); RED BLOOD COUNT 2.76 MIL/MM3 (4.00-5.30); RED CELL DISTRIBUTION WIDTH 14.8 % (11.6-17.2); WHITE BLOOD COUNT 6.2 TH/MM3 (4.0-11.0)
[2017-06-05 06:14] LABS: HEMO FLAGS AUTO DIFF
[2017-06-05 06:26] LABS: ALT (GPT) 21 U/L (10-53); ANION GAP 6 MEQ/L (5-15); AST (GOT) 14 U/L (15-37); BICARBONATE 29.3 MEQ/L (21.0-32.0); BLOOD UREA NITROGEN 30 MG/DL (7-18); CHLORIDE 108 MEQ/L (98-107); GLOMERULAR FILTRATION RATE 34 ML/MIN (>89); POTASSIUM 4.3 MEQ/L (3.5-5.1); SODIUM (NA) 143 MEQ/L (136-145)
[2017-06-05 06:28] LABS: ALKALINE PHOSPHATASE 53 U/L (45-117); TOTAL BILIRUBIN ADULT 0.6 MG/DL (0.2-1.0)
[2017-06-05] MEDS: INSULIN ASPART SUPPLEMENTAL SCALE SQ SCH ×4 (06:35→20:33)
[2017-06-05] MEDS: RESP: ALBUTEROL 2.5 MG/IPRATROPIUM 0.5 MG NEB (SCH) NEB ×4 (07:33→19:39)
[2017-06-05 08:12] LABS: PLATELET ESTIMATE SMEAR NORMAL (NORMAL); PLATELET MORPHOLOGY NORMAL (NORMAL); SCAN/DIFF AUTO DIFF CONFIRMED
[2017-06-05] MEDS: DOCUSATE SODIUM 50 MG/SENNA 8.6 MG TAB PO SCH ×2 (08:23→20:32)
[2017-06-05] MEDS: FUROSEMIDE 40 MG/4 ML VIAL IV PUSH SCH ×2 (08:24→16:07)
[2017-06-05] MEDS: SODIUM CHLORIDE 0.9% FLUSH 10 ML FLUSH IV FLUSH SCH ×2 (08:24→20:32)
--- NOTE | 2017-06-05 10:06 | HHI.PR ---
Subjective Remarks Follow-up acute respiratory failure 06/05/17-patient seen and examined, reports improvement of shortness of breath. Not currently on BiPAP. Patient satting at 92% on 3 L nasal cannula. Objective Vitals Vital Signs Date Time Temp Pulse Resp B/P Pulse Ox O2 Delivery O2 Flow Rate FiO2 06/05/17 08:15 96 Nasal Cannula 2.00 06/05/17 08:00 76 06/05/17 08:00 100 Bi-Pap 40 06/05/17 08:00 98.2 76 21 145/64 99 06/05/17 07:31 97 40 06/05/17 06:00 72 06/05/17 04:43 98 40 06/05/17 04:00 97.9 78 15 157/70 96 06/05/17 04:00 78 06/05/17 00:10 94 40 06/05/17 00:10 Bi-Pap 40 06/05/17 00:00 97.9 82 19 156/65 82 06/05/17 00:00 Nasal Cannula 5.00 Humidified 06/05/17 00:00 88 06/04/17 23:56 96 Nasal Cannula 3.00 06/04/17 23:35 96 Nasal Cannula 3.00 06/04/17 23:00 79 18 156/67 96 CPAP 40 06/04/17 22:04 100 40 06/04/17 21:25 100 CPAP 100 06/04/17 21:14 100 60 06/04/17 21:14 100 BiPAP 60 06/04/17 21:11 97.0 90 19 177/74 I/O 06/04/17 06/04/17 06/04/17 06/05/17 06/05/17 06/05/17 07:00 15:00 23:00 07:00 15:00 23:00 Intake Total 0 ml Output Total 850 ml Balance -850 ml Intake Oral 0 ml IV Total 0 ml Output Urine Total 850 ml # Bowel Movements 0 Result Diagram: 06/05/1742106/05/17421 Imaging Last Impressions Chest X-Ray 06/04/172120 Signed Impressions: Service Date/Time: Sunday, June 04, 2017 21:45 - CONCLUSION: Increasing airspace opacities in the right lung and persistent patchy opacities in the left lung. Moisés Youssef MD Objective Remarks GENERAL: NAD SKIN: Warm and dry. HEAD: Normocephalic. EYES: No scleral icterus. No injection or drainage. NECK: Supple, trachea midline. No JVD or lymphadenopathy. CARDIOVASCULAR: Regular rate and rhythm with II/ DAIN RESPIRATORY: Breath sounds equal bilaterally. No accessory muscle use. GASTROINTESTINAL: Abdomen soft, non-tender, nondistended. MUSCULOSKELETAL: No cyanosis, or edema. BACK: Nontender without obvious deformity. No CVA tenderness. A/P Problem List: (1) Respiratory failure ICD Code: J96.90 Status: Acute (2) CHF (congestive heart failure) ICD Code: I50.9 Status: Acute (3) Renal insufficiency ICD Code: N28.9 Status: Acute (4) HTN (hypertension) ICD Code: I10 Status: Acute (5) DM (diabetes mellitus) ICD Code: E11.9 Status: Acute Assessment and Plan 77 year-old female with 1. Respiratory Failure: Multifactorial-CHF/Pulm HTN. Acute Respiratory Failure w/ Hypoxia, O2 sat <50% on RA per EMS report, required BIPAP on admissions. Currently on 2 L nasal cannula, continue when necessary DuoNeb maintain oxygen saturation above 90%. 2. CHF: Acute on Chronic. Diastolic. Echo 04/15/17 w/ EF 50-55%, Mod-Severe Pulm HTN 62mmHg and Aortic Stenosis. S/p Lasix 100mg IV by EMS, BNP 232. CXR w / increasing airspace opacities right lung and persistent patchy opacities left lung. Continue w/ diuresis. Monitor I/O. Follows w/ Dr. Cid as outpatient, will consult as needed. 3. Renal Insufficiency: Acute on Chronic. Creatinine 1.49 on admission and now down to 1.47. Monitor, caution w/ diuresis. 4. HTN: Resume PO meds 5. DM: Sliding scale w/ Accu-Cheks. 6. DVT Prophylaxis: SCD/Teds. Monty Ibarra MD Jun 05, 2017 10:06
[2017-06-05] MEDS: CARVEDILOL 12.5 MG TAB PO SCH ×2 (11:37→20:31)
[2017-06-05] MEDS: RANOLAZINE 500 MG EXTENDED RELEASE TAB PO SCH ×2 (11:37→20:31)
[2017-06-05] MEDS: CLOPIDOGREL 75 MG TAB PO SCH (11:37)
--- NOTE | 2017-06-05 16:05 | EKG ---
Date Performed: 06/04/2017 Time Performed: 21:16:20 PTAGE: 77 years EKG: Sinus rhythm NORMAL ECG Compared to PREVIOUS TRACING , T-wave changes have improved. PREVIOUS TRACIN05/28/2017 17.03 DOCTOR: Chava Iqbal Interpretating Date/Time 06/05/2017 16:04:54
[2017-06-05] MEDS ORDERED: CILOSTAZOL 100 MG TAB PO SCH (20:00)
[2017-06-05] MEDS: hydrALAZINE HCL 50 MG TAB PO SCH (20:31)
[2017-06-05] MEDS: INSULIN DETEMIR 100 UNITS/ML VIAL SQ SCH (20:32)
[2017-06-06] VITALS (12 sets, daily range): BP systolic 141–166; BP diastolic 63–79; PULSE 74–87; RESP 14–24; TEMP 97.6–99.4; O2SAT 92–99
[2017-06-06] MEDS: CHLORHEXIDINE GLUCONATE 2 % 1 PACK (2 CLOTHS) TOP SCH (02:04)
[2017-06-06 04:40] LABS: AUTOMATED NEUTROPHIL # 4.8 TH/MM3 (1.8-7.7); BASOPHIL % 0.5 % (0.0-2.0); EOSINOPHIL # 0.5 TH/MM3 (0-0.4); EOSINOPHIL % 6.8 % (0.0-4.0); HEMATOCRIT 24.9 % (35.0-46.0); HEMO FLAGS DIFF FINAL; LYMPH % 11.2 % (9.0-44.0); LYMPHOCYTE # 0.8 TH/MM3 (1.0-4.8); MEAN CORPUSCULAR HEMOGLOBIN 30.3 PG (27.0-34.0); MEAN CORPUSCULAR HGB CONC 33.3 % (32.0-36.0); NEUT % 70.5 % (16.0-70.0); PLATELET COUNT 226 TH/MM3 (150-450); RED BLOOD COUNT 2.74 MIL/MM3 (4.00-5.30); RED CELL DISTRIBUTION WIDTH 15.1 % (11.6-17.2); WHITE BLOOD COUNT 6.9 TH/MM3 (4.0-11.0)
[2017-06-06 05:02] LABS: BICARBONATE 30.7 MEQ/L (21.0-32.0); POTASSIUM 3.8 MEQ/L (3.5-5.1)
[2017-06-06] MEDS: INSULIN ASPART SUPPLEMENTAL SCALE SQ SCH ×4 (06:00→22:02)
[2017-06-06] MEDS: LEVOTHYROXINE SODIUM 150 MCG TAB PO SCH (06:04)
[2017-06-06] MEDS: LEVOTHYROXINE SODIUM 25 MCG TAB PO SCH (06:04)
[2017-06-06] MEDS: CILOSTAZOL 50 MG TAB PO SCH ×2 (06:04→16:56)
[2017-06-06] MEDS: RESP: ALBUTEROL 2.5 MG/IPRATROPIUM 0.5 MG NEB (SCH) NEB ×4 (07:34→19:25)
--- NOTE | 2017-06-06 08:35 | HHI.PR ---
Subjective Remarks Follow-up acute respiratory failure 06/05/17-patient seen and examined, reports improvement of shortness of breath. Not currently on BiPAP. Patient satting at 92% on 3 L nasal cannula. 06/06/17-patient seen and examined; breathing better and currently on 3 L nasal cannula. Good diuresis. Placed on BiPAP overnight Objective Vitals Vital Signs Date Time Temp Pulse Resp B/P Pulse Ox O2 Delivery O2 Flow Rate FiO2 06/06/17 07:34 93 Nasal Cannula 3.00 06/06/17 06:00 86 06/06/17 04:00 80 06/06/17 04:00 98.2 83 14 145/72 96 06/06/17 02:32 Nasal Cannula 3.00 Humidified 06/06/17 02:00 81 06/06/17 00:00 74 06/06/17 00:00 98.8 74 24 162/70 99 06/05/17 22:00 74 06/05/17 21:25 Bi-Pap 40 06/05/17 21:23 96 40 06/05/17 20:00 Nasal Cannula 3.00 Humidified 06/05/17 20:00 85 06/05/17 20:00 98.9 82 18 160/70 93 06/05/17 19:40 93 Nasal Cannula 3.00 06/05/17 18:00 88 06/05/17 16:00 78 06/05/17 16:00 100.3 78 20 166/71 92 06/05/17 14:00 86 06/05/17 12:00 99.3 80 15 155/70 90 06/05/17 12:00 80 06/05/17 10:00 91 06/05/17 09:00 92 Nasal Cannula 3.00 I/O 06/05/17 06/05/17 06/05/17 06/06/17 06/06/17 06/06/17 06:59 14:59 22:59 06:59 14:59 22:59 Intake Total 0 ml 480 ml 480 ml 360 ml Output Total 850 ml 1400 ml 1650 ml 500 ml Balance -850 ml -920 ml -1170 ml -140 ml Intake Oral 0 ml 480 ml 480 ml 360 ml IV Total 0 ml 0 ml 0 ml 0 ml Output Urine Total 850 ml 1400 ml 1650 ml 500 ml # Bowel Movements 0 0 0 0 Result Diagram: 06/06/17 0329 06/06/179 Imaging Last Impressions Chest X-Ray 06/04/172120 Signed Impressions: Service Date/Time: Sunday, June 04, 2017 21:45 - CONCLUSION: Increasing airspace opacities in the right lung and persistent patchy opacities in the left lung. Moisés Youssef MD Objective Remarks GENERAL: NAD SKIN: Warm and dry. HEAD: Normocephalic. EYES: No scleral icterus. No injection or drainage. NECK: Supple, trachea midline. No JVD or lymphadenopathy. CARDIOVASCULAR: Regular rate and rhythm with II/ DAIN RESPIRATORY: Breath sounds equal bilaterally. No accessory muscle use. GASTROINTESTINAL: Abdomen soft, non-tender, nondistended. MUSCULOSKELETAL: No cyanosis, or edema. BACK: Nontender without obvious deformity. No CVA tenderness. A/P Problem List: (1) Respiratory failure ICD Code: J96.90 Status: Acute (2) CHF (congestive heart failure) ICD Code: I50.9 Status: Acute (3) Renal insufficiency ICD Code: N28.9 Status: Acute (4) HTN (hypertension) ICD Code: I10 Status: Acute (5) DM (diabetes mellitus) ICD Code: E11.9 Status: Acute Assessment and Plan 77 year-old female with 1. Respiratory Failure: Multifactorial-CHF/Pulm HTN. Acute Respiratory Failure w/ Hypoxia. Currently on 3 L nasal cannula, continue when necessary DuoNeb maintain oxygen saturation above 90%. BiPAP when necessary 2. CHF: Acute on Chronic. Diastolic. Echo 04/15/17 w/ EF 50-55%, Mod-Severe Pulm HTN 62mmHg and Aortic Stenosis. CXR w/ increasing airspace opacities right lung and persistent patchy opacities left lung. Continue w/ diuresis with Lasix 40 mg IV twice a day until 06/07/17. Monitor I/O. Follows w/ Dr. Cid as outpatient, will consult as needed. 3. Renal Insufficiency: Acute on Chronic. Creatinine 1.49 on admission and now down to 1.24. Monitor, caution w/ diuresis. 4. HTN: Continue PO meds including Coreg 12.5 mg twice a day and Norvasc 10 mg 5. DM: Sliding scale w/ Accu-Cheks as well as basal insulin. 6. Hyperlipidemia: Continue Pravachol 7. Coronary artery disease: On Plavix 8. PVD: Pletal 9. DVT Prophylaxis: SCD/Teds. Discharge Planning Discharge home when medically stable as patient still on IV Monty De La Cruz MD Jun 06, 2017 08:35
[2017-06-06] MEDS: FUROSEMIDE 40 MG/4 ML VIAL IV PUSH SCH ×2 (08:42→16:56)
[2017-06-06] MEDS: CARVEDILOL 12.5 MG TAB PO SCH ×2 (08:42→21:56)
[2017-06-06] MEDS: CLOPIDOGREL 75 MG TAB PO SCH (08:42)
[2017-06-06] MEDS: hydrALAZINE HCL 50 MG TAB PO SCH ×2 (08:43→21:56)
[2017-06-06] MEDS: POTASSIUM CHLORIDE 10 MEQ CONTROLLED RELEASE TAB PO SCH (08:43)
[2017-06-06] MEDS: RANOLAZINE 500 MG EXTENDED RELEASE TAB PO SCH ×2 (08:43→21:56)
[2017-06-06] MEDS: PRAVASTATIN SOD 80 MG TAB PO SCH (08:43)
[2017-06-06] MEDS: SODIUM CHLORIDE 0.9% FLUSH 10 ML FLUSH IV FLUSH SCH ×2 (08:43→21:56)
[2017-06-06] MEDS: INSULIN DETEMIR 100 UNITS/ML VIAL SQ SCH (22:01)
[2017-06-07] VITALS (15 sets, daily range): BP systolic 128–195; BP diastolic 64–81; PULSE 76–92; RESP 16–19; TEMP 98.1–99.4; O2SAT 93–97
[2017-06-07] MEDS: CHLORHEXIDINE GLUCONATE 2 % 1 PACK (2 CLOTHS) TOP SCH (04:00)
[2017-06-07] MEDS: LEVOTHYROXINE SODIUM 25 MCG TAB PO SCH (05:54)
[2017-06-07] MEDS: LEVOTHYROXINE SODIUM 150 MCG TAB PO SCH (05:54)
[2017-06-07] MEDS: CILOSTAZOL 50 MG TAB PO SCH (06:01)
[2017-06-07] MEDS: INSULIN ASPART SUPPLEMENTAL SCALE SQ SCH ×4 (06:01→21:03)
[2017-06-07] MEDS: FUROSEMIDE 40 MG/4 ML VIAL IV PUSH SCH ×2 (06:48→17:43)
[2017-06-07] MEDS: RESP: ALBUTEROL 2.5 MG/IPRATROPIUM 0.5 MG NEB (SCH) NEB ×4 (07:26→20:43)
--- NOTE | 2017-06-07 07:53 | HHI.PR ---
Subjective Remarks f/u; CHF in no acute distress. on oxygen via [place]. denies any chest pain. Objective Vitals Vital Signs Date Time Temp Pulse Resp B/P Pulse Ox O2 Delivery O2 Flow Rate FiO2 06/07/17 07:26 93 Nasal Cannula 2.00 06/07/17 06:00 81 195/72 06/07/17 04:00 98.1 79 16 190/81 94 06/07/17 01:30 80 06/07/17 00:00 98.6 81 16 128/68 94 06/06/17 21:45 94 Nasal Cannula 2.50 06/06/17 20:00 99.0 87 18 153/68 94 06/06/17 19:27 93 Nasal Cannula 3.00 06/06/17 16:00 98.4 86 164/72 92 06/06/17 13:06 Nasal Cannula 2.50 06/06/17 12:30 97.6 86 18 166/79 92 06/06/17 12:00 99.0 75 24 141/63 96 06/06/17 12:00 79 06/06/17 10:00 80 06/06/17 08:00 99.4 85 20 162/70 95 06/06/17 08:00 85 I/O 06/06/17 06/06/17 06/06/17 06/07/17 06/07/17 06/07/17 06:59 14:59 22:59 06:59 14:59 22:59 Intake Total 360 ml 600 ml 610 ml Output Total 500 ml 1450 ml 1000 ml 900 ml Balance -140 ml -850 ml -1000 ml -290 ml Intake Oral 360 ml 600 ml 610 ml IV Total 0 ml 0 ml Output Urine Total 500 ml 1450 ml 1000 ml 900 ml # Bowel Movements 0 1 1 Result Diagram: 06/06/1732806/06/17328 Imaging Last Impressions Chest X-Ray 06/04/172120 Signed Impressions: Service Date/Time: Sunday, June 04, 2017 21:45 - CONCLUSION: Increasing airspace opacities in the right lung and persistent patchy opacities in the left lung. Moisés Youssef MD Objective Remarks GENERAL: This is a well-nourished, well-developed patient, in no apparent distress. CARDIOVASCULAR: Regular rate and regular rhythm with systolic murmur in aortic area. RESPIRATORY: basal crackles. GASTROINTESTINAL: Abdomen soft, non-tender, nondistended. Normal, active bowel sounds MUSCULOSKELETAL: Extremities with mild bilateral pedal edema. NEURO: Alert & Oriented x4 to person, place, time, situation. Moves all ext x4 Procedures none Medications and IVs Current Medications Sodium Chloride (NS Flush) 2 ml UNSCH PRN IVF FLUSH AFTER USING IV ACCESS; Start 06/04/17 at 21:30; Stop 06/04/17 at 23:18; Status DC Miscellaneous Information 1 [id number] XX Last administered on 06/04/17 23:15; Start 06/04/17 at 23:15 Chlorhexidine Gluconate (Chlorhexidine 2% Cloth) 3 pack Taper DAILY@04 TOP Last administered on 06/07/17 04:00; Start 06/05/17 at 04:00; Stop 06/01/18 at 03:59 Chlorhexidine Gluconate (Chlorhexidine 2% Cloth) 3 pack UNSCH PRN TOP HYGIENIC CARE; Start 06/04/17 at 23:15 Dextrose (D50w (Vial) Inj) 50 ml UNSCH PRN IV HYPOGLYCEMIA-SEE COMMENTS; Start 06/04/17 at 23:15 Glucagon (Glucagon Inj) 1 mg UNSCH PRN OTHER HYPOGLYCEMIA-SEE COMMENTS; Start 06/04/17 at 23:15 Insulin Aspart (NovoLOG SUPPLEMENTAL SCALE) 1 ACHS SLIDING SCALE SQ Last administered on 06/06/17 22:02; Start 06/05/17 at 07:00 Furosemide (Lasix Inj) 40 mg BID@09,18 IV PUSH Last administered on 06/07/17 06 :48; Start 06/05/17 at 09:00 Albuterol/ Ipratropium (Duoneb Neb) 1 ampule Q4HR WHILE AWAKE NEB NEB Last administered on 06/07/17 07:26; Start 06/05/17 at 08:00 Albuterol/ Ipratropium (Duoneb Neb) 1 ampule Q2HR NEB PRN NEB SOB/WHEEZING; Start 06/04/17 at 23:15 Sodium Chloride (NS Flush) 2 ml UNSCH PRN IV FLUSH FLUSH AFTER USING IV ACCESS ; Start 06/04/17 at 23:15 Sodium Chloride (NS Flush) 2 ml BID IV FLUSH Last administered on 06/06/17 21: 56; Start 06/05/17 at 09:00 Ondansetron HCl (Zofran Inj) 4 mg Q6H PRN IVP NAUSEA OR VOMITING; Start at 23:15 Acetaminophen (Tylenol) 650 mg Q6H PRN PO FEVER/PAIN SCALE 1 TO 2; Start at 23:15 Acetaminophen/ Hydrocodone Bitart ([place] 5-325 Mg) 1 tab Q4H PRN PO PAIN SCALE 3 TO 5; Start 06/04/17 at 23:15 Morphine Sulfate (Morphine Inj) 2 mg Q3H PRN IV Pain 6-10; Start 06/04/17 at 23 :15 Senna/Docusate Sodium (Airam-Colace) 1 tab BID PO Last administered on 20:32; Start 06/05/17 at 09:00; Stop 06/06/17 at 08:36; Status DC Magnesium Hydroxide (Milk Of Magnesia Liq) 30 ml Q12H PRN PO MILD - MODERATE CONSTIPATION; Start 06/04/17 at 23:15 Sennosides (Senokot) 17.2 mg Q12H PRN PO MODERATE - SEVERE CONSTIPATION; Start 06/04/17 at 23:15 Bisacodyl (Dulcolax Supp) 10 mg DAILY PRN RECTAL SEVERE CONSITIPATION; Start at 23:15; Stop 06/06/17 at 08:36; Status DC Lactulose (Lactulose Liq) 30 ml DAILY PRN PO SEVERE CONSITIPATION; Start at 23:15; Stop 06/06/17 at 08:36; Status DC Amlodipine Besylate (Norvasc) 10 mg DAILY PO Last administered on 06/06/17 08: 43; Start 06/06/17 at 09:00 Carvedilol (Coreg) 12.5 mg BID PO Last administered on 06/06/17 21:56; Start 06/05/17 at 10:15 Cilostazol (Pletal) 100 mg BID@08,20 PO Last administered on 06/05/17 20:00; Start 06/05/17 at 20:00; Stop 06/05/17 at 23:17; Status DC Clopidogrel Bisulfate (Plavix) 75 mg DAILY PO Last administered on 06/06/17 08 :42; Start 06/05/17 at 10:15 Hydralazine HCl (Apresoline) 50 mg BID PO Last administered on 06/06/17 21:56 ; Start 06/05/17 at 21:00 Insulin Detemir (Levemir Inj) 16 units HS SQ Last administered on 06/06/17 22: 01; Start 06/05/17 at 21:00 Potassium Chloride (KCl) 10 meq DAILY PO Last administered on 06/06/17 08:43; Start 06/06/17 at 09:00 Pravastatin Sodium (Pravachol) 80 mg DAILY PO Last administered on 06/06/17 08 :43; Start 06/06/17 at 09:00 Ranolazine (Ranexa) 500 mg BID PO Last administered on 06/06/17 21:56; Start 06/05/17 at 10:30 Levothyroxine Sodium (Synthroid) 150 mcg DAILY@0600 PO Last administered on 06/07 05:54; Start 06/06/17 at 06:00 Levothyroxine Sodium (Synthroid) 25 mcg DAILY@0600 PO Last administered on 05:54; Start 06/06/17 at 06:00 Cilostazol (Pletal) 100 mg BIDAC PO Last administered on 06/07/17 06:01; Start 06/06/17 at 07:00 A/P Assessment and Plan A/P 1. Respiratory Failure: Multifactorial-CHF; acute on chronic diastolic CHF./ Pulm HTN. Diastolic. Echo 04/15/17 w/ EF 50-55%, Mod-Severe Pulm HTN 62mmHg and Aortic Stenosis. continue with lasix and neb treatment- will consult cardiology. patient is on home oxygen. 3. Renal Insufficiency: Acute on Chronic. improved. Monitor, caution w/ diuresis. 4. HTN: Continue PO meds including Coreg 12.5 mg twice a day and Norvasc 10 mg 5. DM: Sliding scale w/ Accu-Cheks as well as basal insulin. 6. Hyperlipidemia: Continue Pravachol 7. Coronary artery disease: On Plavix 8. PVD: Pletal 9. DVT Prophylaxis: SCD/Teds. Alecia Waters MD Jun 07, 2017 07:52
[2017-06-07 08:27] LABS: BICARBONATE 33.6 MEQ/L (21.0-32.0); POTASSIUM 3.5 MEQ/L (3.5-5.1)
[2017-06-07] MEDS: RANOLAZINE 500 MG EXTENDED RELEASE TAB PO SCH (10:35)
[2017-06-07] MEDS: CLOPIDOGREL 75 MG TAB PO SCH (10:35)
[2017-06-07] MEDS: hydrALAZINE HCL 50 MG TAB PO SCH ×2 (10:36→17:42)
[2017-06-07] MEDS: SODIUM CHLORIDE 0.9% FLUSH 10 ML FLUSH IV FLUSH SCH ×2 (10:36→21:00)
[2017-06-07] MEDS: POTASSIUM CHLORIDE 10 MEQ CONTROLLED RELEASE TAB PO SCH (10:36)
[2017-06-07] MEDS: CARVEDILOL 12.5 MG TAB PO SCH ×2 (10:36→21:01)
[2017-06-07] MEDS: PRAVASTATIN SOD 80 MG TAB PO SCH (10:36)
--- NOTE | 2017-06-07 13:28 | MB ---
cc: KATE BENITES MD DATE OF CONSULTATION: 06/07/2017 REASON FOR CONSULTATION: Congestive heart failure. HISTORY OF PRESENT ILLNESS: Mrs. Orozco is a 77 year-old patient who was recently admitted with shortness of breath, felt secondary to flash pulmonary edema. She has requested a transfer from Dr. Cid [place]. She reports that since her discharge she had been doing reasonably well and then had a rather abrupt progression of shortness of breath that precipitated her emergency room visit. She notes that she does get significant improvement from the breathing treatments. She notes that she is feeling much better since her arrival. PAST MEDICAL HISTORY: Significant for history of rheumatic fever. Hypertension. Hyperlipidemia. Aortic stenosis. Hypothyroidism. Chronic anemia. Diabetes. She also has a history of renal insufficiency. Anemia. Left carotid endarterectomy. OUTPATIENT MEDICATIONS: 1. Oxygen 2. Lasix 3. Chloracon 4. Hydralazine 5. Lantus 6. Ranexa 7. Pravastatin 8. Nitrostat 9. Methyldopa 10. Plavix 11. <<2:37>> 12. Carvedilol 13. Amlodipine REVIEW OF SYSTEMS Except as mentioned in the history of present illness all 12 systems are negative. PHYSICAL EXAMINATION: VITAL SIGNS: Current vital signs; 98.6, 90, 162/70. Of note her blood pressure was 177/74 on arrival. IN GENERAL: She is an overweight female who is in no apparent distress. NECK: Her neck is free from jugular venous distention. LUNGS: The lungs are bilaterally clear to auscultation. The lungs have bibasilar rales. CARDIOVASCULAR SYSTEM: On cardiovascular examination she has a 2/6 systolic murmur. No rubs or gallops were appreciated. ABDOMEN: The abdomen is soft. EXTREMITIES: The extremities are free from edema. LABORATORY VALUES: Significant for hemoglobin of 8.3. Her creatinine is 1.2, troponin is less then 0.02 with B-type natriuretic peptide of 232. CHEST X-RAY; Shows increasing airspace opacities in the right lung, persistent patchy opacities in the left. ECHOCARDIOGRAM From 04/25/2017 shows a mean aortic valve gradient of 36 mm's. No ejection fraction is listed. IMPRESSIONS: Shortness of breath - the patient has had several admissions now with rather abrupt decompensation. There does appear to be significant diuresis and suggests cardiac etiology. The last admission because of her renal insufficiency and anemia, catheterization was felt to be prohibitive. This admission her creatinine has improved. She does remain quite anemic. Given her three recurrent episodes with a rather abrupt presentation, I did discuss further evaluation again with her by catheterization, once she is able to lay flat. She does understand that there is still significant risk of both bleeding and further renal compromise. Despite this she is willing to proceed. PLAN: I will reevaluate her in the a.m. as she is unable to currently lay flat. Also of note both Braulio's tests were favorable for radial approach. As well I do believe that there is a significant chronic obstructive pulmonary disease component to her respiratory impairment. Anemia - this will be managed by the primary team. Renal insufficiency - the patient will obviously been monitored for this. Hypertension - I am going to increase the patients hydralazine, given her persistent hypertension and renal impairment. The hydralazine scheduled twice a day, may have also been aggravating the blood pressure swings given its short half life and typical schedule of q six hours. Kate Benites M.D. Brian /12:49 PM /1:02 PM
--- NOTE | 2017-06-07 18:39 | ECHRPT ---
Indication: Unspecified combined systolic (congestive) and diastolic (congestive) heart failure CONCLUSIONS The left ventricular systolic function is moderately reduced with an estimated ejection fraction in the range of 40-45%. Calcification of both mitral valve leaflets. Severe mitral valve stenosis. [id number] mitral valve regurgitation. Moderate mitral annular calcification. moderate to severe aortic valve stenosis. Diffuse calcification of the aortic valve. Aortic valve area is 0.95 cm. There is moderate tricuspid regurgitation. The estimated pulmonary arterial pressure is 60 mmHg. The pulmonary valve is not well visualized. BP: 162 / 70 HR: 90 Rhythm: Sinus MEASUREMENTS (Male / Female) Normal Values Technical Quality:Fair 2D ECHO LV Diastolic Diameter PLAX 3.8 cm 4.2 - 5.9 / 3.9 - 5.3 cm LV Systolic Diameter PLAX 3.0 cm IVS Diastolic Thickness 1.0 cm 0.6 - 1.0 / 0.6 - 0.9 cm LVPW Diastolic Thickness 1.0 cm 0.6 - 1.0 / 0.6 - 0.9 cm LV Relative Wall Thickness 0.5 LVOT Diameter 1.6 cm LA Systolic Diameter LX 4.4 cm 3.0 - 4.0 / 2.7 - 3.8 cm M-MODE Aortic Root Diameter MM 2.5 cm AV Cusp Separation MM 2.0 cm DOPPLER AV Peak Velocity 374.2 cm/s AV Peak Gradient 56.0 mmHg AV Mean Gradient 39.8 mmHg AV Velocity Time Integral 86.8 cm LVOT Peak Velocity 177.0 cm/s LVOT Peak Gradient 12.5 mmHg AV Area Cont Eq pk 1.0 cm MV Peak Velocity 203.0 cm/s MV Peak Gradient 16.5 mmHg MV Mean Velocity 150.0 cm/s MV Mean Gradient 10.0 mmHg MV Area PHT 2.3 cm MR Peak Velocity 343.0 cm/s MR Peak Gradient 47.1 mmHg Mitral E Point Velocity 174.0 cm/s Mitral A Point Velocity 180.0 cm/s Mitral E to A Ratio 1.0 LV E' Lateral Velocity 6.9 cm/s Mitral E to LV E' Lateral Ratio 25.1 LV E' Septal Velocity 6.4 cm/s Mitral E to LV E' Septal Ratio 27.1 TR Peak Velocity 370.0 cm/s TR Peak Gradient 54.8 mmHg PV Peak Velocity 164.0 cm/s PV Peak Gradient 10.8 mmHg FINDINGS LEFT VENTRICLE The left ventricular systolic function is moderately reduced with an estimated ejection fraction in the range of 40-45%. Wall thickness is measured at the upper limits of normal. Normal left ventricular size. RIGHT VENTRICLE Normal right ventricular size and systolic function. LEFT ATRIUM The left atrial size is normal. RIGHT ATRIUM The right atrial size is normal. ATRIAL SEPTUM Normal atrial septal thickness without atrial level shunting by limited color doppler interrogation. AORTA The aortic root and proximal ascending aorta are normal in size on limited imaging. MITRAL VALVE moderate thickening of the mitral valve leaflets. Calcification of both mitral valve leaflets. Severe mitral valve stenosis. [id number] mitral valve regurgitation. Moderate mitral annular calcification. AORTIC VALVE moderate to severe aortic valve stenosis. Diffuse calcification of the aortic valve. Aortic valve area is 0.95 cm. TRICUSPID VALVE There is moderate tricuspid regurgitation. The estimated pulmonary arterial pressure is 60 mmHg. PULMONARY VALVE The pulmonary valve is not well visualized. VESSELS The inferior vena cava is normal in size. PERICARDIUM No pericardial effusion. Savannah Benites MD, FACC (Electronically Signed) Final Date:07 June 2017 18:38
[2017-06-07] MEDS: INSULIN DETEMIR 100 UNITS/ML VIAL SQ SCH (21:02)
[2017-06-08] VITALS (12 sets, daily range): BP systolic 132–178; BP diastolic 62–66; PULSE 72–92; RESP 18; TEMP 98.1–98.6; O2SAT 94–97
[2017-06-08] MEDS: hydrALAZINE HCL 50 MG TAB PO SCH ×3 (00:13→11:45)
[2017-06-08] MEDS: CHLORHEXIDINE GLUCONATE 2 % 1 PACK (2 CLOTHS) TOP SCH (04:00)
[2017-06-08] MEDS: LEVOTHYROXINE SODIUM 150 MCG TAB PO SCH (05:49)
[2017-06-08] MEDS: LEVOTHYROXINE SODIUM 25 MCG TAB PO SCH (05:49)
[2017-06-08] MEDS: INSULIN ASPART SUPPLEMENTAL SCALE SQ SCH ×2 (06:05→11:00)
[2017-06-08 06:16] LABS: POTASSIUM 3.4 MEQ/L (3.5-5.1)
--- NOTE | 2017-06-08 07:24 | PD.CARD.PN ---
Subjective Subjective Remarks Pt reports feeling better Objective Medications Current Medications Medications (Trade) Dose Ordered Sig/Delroy Route Start Time Stop Time Status Last Admin Miscellaneous Information 1 Q361D XX 06/04/17 23:15 06/04/17 23:15 (Chlorhexidine 2% Cloth) 3 pack Taper DAILY@04 TOP 06/05/17 04:00 06/01/18 03:59 06/07/17 04:00 (Chlorhexidine 2% Cloth) 3 pack UNSCH PRN TOP 06/04/17 23:15 (D50w (Vial) Inj) 50 ml UNSCH PRN IV 06/04/17 23:15 (Glucagon Inj) 1 mg UNSCH PRN OTHER 06/04/17 23:15 (Lasix Inj) 40 mg BID@ IV PUSH 06/05/17 09:00 06/07/17 17:43 (NS Flush) 2 ml UNSCH PRN IV FLUSH 06/04/17 23:15 (NS Flush) 2 ml BID IV FLUSH 06/05/17 09:00 06/07/17 21:00 (Zofran Inj) 4 mg Q6H PRN IVP 06/04/17 23:15 (Tylenol) 650 mg Q6H PRN PO 06/04/17 23:15 ([place] 5-325 Mg) 1 tab Q4H PRN PO 06/04/17 23:15 (Morphine Inj) 2 mg Q3H PRN IV 06/04/17 23:15 (Milk Of Magnesia Liq) 30 ml Q12H PRN PO 06/04/17 23:15 (Senokot) 17.2 mg Q12H PRN PO 06/04/17 23:15 (Norvasc) 10 mg DAILY PO 06/06/17 09:00 06/07/17 10:35 (Coreg) 12.5 mg BID PO 06/05/17 10:15 06/07/17 21:01 (Plavix) 75 mg DAILY PO 06/05/17 10:15 06/07/17 10:35 (Levemir Inj) 16 units HS SQ 06/05/17 21:00 06/07/17 21:02 (KCl) 10 meq DAILY PO 06/06/17 09:00 06/07/17 10:36 (Pravachol) 80 mg DAILY PO 06/06/17 09:00 06/07/17 10:36 (Synthroid) 150 mcg DAILY@0600 PO 06/06/17 06:00 06/08/17 05:49 (Synthroid) 25 mcg DAILY@0600 PO 06/06/17 06:00 06/08/17 05:49 (Apresoline) 50 mg Q6HR PO 06/07/17 18:00 06/08/17 05:49 Vital Signs / I&O Vital Signs Date Time Temp Pulse Resp B/P Pulse Ox O2 Delivery O2 Flow Rate FiO2 06/08/17 06:09 81 06/08/17 05:04 96 Nasal Cannula 2.00 06/08/17 05:04 83 06/08/17 04:45 82 06/08/17 04:40 98.1 78 157/66 97 06/08/17 00:45 98.5 72 144/62 96 06/07/17 23:00 76 06/07/17 22:44 Nasal Cannula 2.00 40 06/07/17 22:44 98.9 82 163/64 97 06/07/17 19:00 80 06/07/17 18:00 80 06/07/17 17:50 82 06/07/17 16:13 96 Nasal Cannula 2.00 06/07/17 16:00 88 06/07/17 15:40 99.4 92 19 192/74 93 06/07/17 14:04 Nasal Cannula 2.00 06/07/17 12:00 98.6 79 18 153/67 94 06/07/17 08:00 98.6 83 18 162/70 95 06/07/17 08:00 90 06/07/17 07:26 93 Nasal Cannula 2.00 I/O 06/07/17 06/07/17 06/07/17 06/08/17 06/08/17 06/08/17 07:00 15:00 23:00 07:00 15:00 23:00 Intake Total 610 ml 240 ml 240 ml 240 ml Output Total 900 ml 1000 ml 175 ml 1300 ml Balance -290 ml -760 ml 65 ml -1060 ml Intake Oral 610 ml 240 ml 240 ml 240 ml Output Urine Total 900 ml 1000 ml 175 ml 1300 ml # Bowel Movements 1 Physical Exam GENERAL: Well developed, well nourished. No acute distress. HEENT: Jugular venous pressure is normal. CHEST: Lungs rales to auscultation bilaterally. Unlabored respiratory effort. CARDIAC: Regular rate and rhythm harsh DAIN ABDOMEN: Soft, Bowel sounds present. EXTREMITIES: No clubbing, cyanosis, or edema. Laboratory Laboratory Tests Test 06/07/17 06/08/17 07:24 05:34 Sodium Level 144 MEQ/L 143 MEQ/L Potassium Level 3.5 MEQ/L 3.4 MEQ/L Chloride Level 103 MEQ/L 102 MEQ/L Carbon Dioxide Level 33.6 MEQ/L 33.0 MEQ/L Anion Gap 7 MEQ/L 8 MEQ/L Blood Urea Nitrogen 21 MG/DL 20 MG/DL Creatinine 1.20 MG/DL 1.20 MG/DL Estimat Glomerular Filtration 43 ML/MIN 43 ML/MIN Rate Random Glucose 87 MG/DL 97 MG/DL Calcium Level 9.4 MG/DL 9.2 MG/DL Assessment and Plan Assessment and Plan CHF- EF 40-45% on ECHO - 3 episodes in a short period is a poor prognostic factor Mod-Severe And MS on ECHO mean grad 40 and 10mmHg respectively -pt not a candidate at this time for double valve surgery -she is a poor candidate for valvuloplasty, though this may be considered to stabilize/ correct the anemia and consider surgery -alternative is hospice Anemia CKD- Savannah Benites MD Jun 08, 2017 07:24
[2017-06-08] MEDS: RESP: ALBUTEROL 2.5 MG/IPRATROPIUM 0.5 MG NEB (SCH) NEB ×2 (08:00→11:16)
--- NOTE | 2017-06-08 08:39 | HHI.PR ---
Subjective Remarks in no acute distress- however with mild sob. denies chest pain. family at the bedside. d/w the RN. Objective Vitals Vital Signs Date Time Temp Pulse Resp B/P Pulse Ox O2 Delivery O2 Flow Rate FiO2 06/08/17 08:20 96 Nasal Cannula 2.00 06/08/17 07:48 Nasal Cannula 2.00 06/08/17 06:09 81 06/08/17 05:04 96 Nasal Cannula 2.00 06/08/17 05:04 83 06/08/17 04:45 82 06/08/17 04:40 98.1 78 157/66 97 06/08/17 00:45 98.5 72 144/62 96 06/07/17 23:00 76 06/07/17 22:44 Nasal Cannula 2.00 40 06/07/17 22:44 98.9 82 163/64 97 06/07/17 19:00 80 06/07/17 18:00 80 06/07/17 17:50 82 06/07/17 16:13 96 Nasal Cannula 2.00 06/07/17 16:00 88 06/07/17 15:40 99.4 92 19 192/74 93 06/07/17 14:04 Nasal Cannula 2.00 06/07/17 12:00 98.6 79 18 153/67 94 I/O 06/07/17 06/07/17 06/07/17 06/08/17 06/08/17 06/08/17 07:00 15:00 23:00 07:00 15:00 23:00 Intake Total 610 ml 240 ml 240 ml 240 ml Output Total 900 ml 1000 ml 175 ml 1300 ml Balance -290 ml -760 ml 65 ml -1060 ml Intake Oral 610 ml 240 ml 240 ml 240 ml Output Urine Total 900 ml 1000 ml 175 ml 1300 ml # Bowel Movements 1 Result Diagram: 06/06/17 0329 06/08/17 0534 Imaging Last Impressions Chest X-Ray 06/04/172120 Signed Impressions: Service Date/Time: Sunday, June 04, 2017 21:45 - CONCLUSION: Increasing airspace opacities in the right lung and persistent patchy opacities in the left lung. Moisés Youssef MD Objective Remarks GENERAL: with mild sob. CARDIOVASCULAR: Regular rate and regular rhythm with systolic murmur in aortic area. RESPIRATORY: basal crackles. GASTROINTESTINAL: Abdomen soft, non-tender, nondistended. Normal, active bowel sounds MUSCULOSKELETAL: Extremities with mild bilateral pedal edema. NEURO: Alert & Oriented x4 to person, place, time, situation. Moves all ext x4 Procedures none Medications and IVs Current Medications Sodium Chloride (NS Flush) 2 ml UNSCH PRN IVF FLUSH AFTER USING IV ACCESS; Start 06/04/17 at 21:30; Stop 06/04/17 at 23:18; Status DC Miscellaneous Information 1 Q361D XX Last administered on 06/04/17 23:15; Start 06/04/17 at 23:15 Chlorhexidine Gluconate (Chlorhexidine 2% Cloth) 3 pack Taper DAILY@04 TOP Last administered on 06/07/17 04:00; Start 06/05/17 at 04:00; Stop 06/01/18 at 03:59 Chlorhexidine Gluconate (Chlorhexidine 2% Cloth) 3 pack UNSCH PRN TOP HYGIENIC CARE; Start 06/04/17 at 23:15 Dextrose (D50w (Vial) Inj) 50 ml UNSCH PRN IV HYPOGLYCEMIA-SEE COMMENTS; Start 06/04/17 at 23:15 Glucagon (Glucagon Inj) 1 mg UNSCH PRN OTHER HYPOGLYCEMIA-SEE COMMENTS; Start 06/04/17 at 23:15 Insulin Aspart (NovoLOG SUPPLEMENTAL SCALE) 1 ACHS SLIDING SCALE SQ Last administered on 06/07/17 21:03; Start 06/05/17 at 07:00 Furosemide (Lasix Inj) 40 mg BID@09,18 IV PUSH Last administered on 06/07/17 17 :43; Start 06/05/17 at 09:00 Albuterol/ Ipratropium (Duoneb Neb) 1 ampule Q4HR WHILE AWAKE NEB NEB Last administered on 06/07/17 20:43; Start 06/05/17 at 08:00 Albuterol/ Ipratropium (Duoneb Neb) 1 ampule Q2HR NEB PRN NEB SOB/WHEEZING; Start 06/04/17 at 23:15 Sodium Chloride (NS Flush) 2 ml UNSCH PRN IV FLUSH FLUSH AFTER USING IV ACCESS ; Start 06/04/17 at 23:15 Sodium Chloride (NS Flush) 2 ml BID IV FLUSH Last administered on 06/07/17 21: 00; Start 06/05/17 at 09:00 Ondansetron HCl (Zofran Inj) 4 mg Q6H PRN IVP NAUSEA OR VOMITING; Start at 23:15 Acetaminophen (Tylenol) 650 mg Q6H PRN PO FEVER/PAIN SCALE 1 TO 2; Start at 23:15 Acetaminophen/ Hydrocodone Bitart ([place] 5-325 Mg) 1 tab Q4H PRN PO PAIN SCALE 3 TO 5; Start 06/04/17 at 23:15 Morphine Sulfate (Morphine Inj) 2 mg Q3H PRN IV Pain 6-10; Start 06/04/17 at 23 :15 Senna/Docusate Sodium (Airam-Colace) 1 tab BID PO Last administered on 20:32; Start 06/05/17 at 09:00; Stop 06/06/17 at 08:36; Status DC Magnesium Hydroxide (Milk Of Magnesia Liq) 30 ml Q12H PRN PO MILD - MODERATE CONSTIPATION; Start 06/04/17 at 23:15 Sennosides (Senokot) 17.2 mg Q12H PRN PO MODERATE - SEVERE CONSTIPATION; Start 06/04/17 at 23:15 Bisacodyl (Dulcolax Supp) 10 mg DAILY PRN RECTAL SEVERE CONSITIPATION; Start at 23:15; Stop 06/06/17 at 08:36; Status DC Lactulose (Lactulose Liq) 30 ml DAILY PRN PO SEVERE CONSITIPATION; Start at 23:15; Stop 06/06/17 at 08:36; Status DC Amlodipine Besylate (Norvasc) 10 mg DAILY PO Last administered on 06/07/17 10: 35; Start 06/06/17 at 09:00 Carvedilol (Coreg) 12.5 mg BID PO Last administered on 06/07/17 21:01; Start at 10:15 Cilostazol (Pletal) 100 mg BID@08,20 PO Last administered on 06/05/17 20:00; Start 06/05/17 at 20:00; Stop 06/05/17 at 23:17; Status DC Clopidogrel Bisulfate (Plavix) 75 mg DAILY PO Last administered on 06/07/17 10: 35; Start 06/05/17 at 10:15 Hydralazine HCl (Apresoline) 50 mg BID PO Last administered on 06/07/17 10:36; Start 06/05/17 at 21:00; Stop 06/07/17 at 13:02; Status DC Insulin Detemir (Levemir Inj) 16 units HS SQ Last administered on 06/07/17 21: 02; Start 06/05/17 at 21:00 Potassium Chloride (KCl) 10 meq DAILY PO Last administered on 06/07/17 10:36; Start 06/06/17 at 09:00 Pravastatin Sodium (Pravachol) 80 mg DAILY PO Last administered on 06/07/17 10: 36; Start 06/06/17 at 09:00 Ranolazine (Ranexa) 500 mg BID PO Last administered on 06/07/17 10:35; Start at 10:30; Stop 06/07/17 at 13:02; Status DC Levothyroxine Sodium (Synthroid) 150 mcg DAILY@0600 PO Last administered on 06/08 05:49; Start 06/06/17 at 06:00 Levothyroxine Sodium (Synthroid) 25 mcg DAILY@0600 PO Last administered on 05:49; Start 06/06/17 at 06:00 Cilostazol (Pletal) 100 mg BIDAC PO Last administered on 06/07/17 06:01; Start 06/06/17 at 07:00; Stop 06/07/17 at 13:02; Status DC Hydralazine HCl (Apresoline) 50 mg Q6HR PO Last administered on 06/08/17 05:49 ; Start 06/07/17 at 18:00 A/P Assessment and Plan A/P 1. Respiratory Failure: Multifactorial-CHF; acute on chronic systolic CHF./ Pulm HTN. Diastolic. Echo 04/15/17 w/ EF 50-55%, Mod-Severe Pulm HTN 62mmHg and Aortic Stenosis. echo with EF 45% and mitral and aortic valve stenosis. continue with lasix and neb treatment- patient is on home oxygen. cardiology follow-up appreciated and recommended hospice since the patient is not a good candidate for valve repair; hospice will be consulted. 3. Renal Insufficiency: Acute on Chronic. improved. Monitor, caution w/ diuresis. 4. HTN: Continue PO meds including Coreg 12.5 mg twice a day and Norvasc 10 mg - hydralazine was added. 5. DM: Sliding scale w/ Accu-Cheks as well as basal insulin. 6. Hyperlipidemia: Continue Pravachol 7. Coronary artery disease: On Plavix 8. PVD: Pletal 9. DVT Prophylaxis: SCD/Teds. Discharge Planning likely hospice- see med list. d/w the patient and her family at length. d/w the RN. time spent 35 min. Alecia Waters MD Jun 08, 2017 08:39
[2017-06-08] MEDS ORDERED: AMLO10 PO (08:41)
[2017-06-08] MEDS ORDERED: HYDR-3801 PO (08:41)
--- NOTE | 2017-06-08 08:41 | HHI.DCPOC ---
Discharge Care Plan Diagnosis: (1) CHF (congestive heart failure) Your Health Problems Are: Shortness of Breath Goals to Promote Your Health * To prevent worsening of your condition and complications * To maintain your health at the optimal level Directions to Meet Your Goals Take your medications as prescribed Follow your dietary instruction Follow activity as directed Keep your appointments as scheduled Take your immunizations and boosters as scheduled If your symptoms worsen call your PCP, if no PCP go to Urgent Care Center or Emergency Room Smoking is Dangerous to Your Health. Avoid second hand smoke Call the 24-hour hour crisis hotline for domestic abuse at Alecia Waters MD Jun 08, 2017 08:41
--- NOTE | 2017-06-08 08:42 | HHI.DS ---
Discharge Summary Admission Date Jun 04, 2017 at 23:00 Discharge Date: Jun 08, 2017 Admitting Diagnosis pulmonary edema/CHF exacerbation/BiPAP (1) Respiratory failure ICD Code: J96.90 Diagnosis: Principal (2) CHF (congestive heart failure) ICD Code: I50.9 Diagnosis: Principal (3) Renal insufficiency ICD Code: N28.9 Diagnosis: Secondary (4) HTN (hypertension) ICD Code: I10 Diagnosis: Secondary (5) DM (diabetes mellitus) ICD Code: E11.9 Diagnosis: Secondary Procedures none Brief History - From Admission This is a 77-year-old female with a PMH of CHF (Echo 04/15/17 w/ EF 50-55%, Mod- Severe Pulm HTN 62mmHg and Aortic Stenosis), Rheumatoid Arthritis, DM, HTN and h /o TIA who was brought to the ER by EMS secondary to severe SOB and hypoxia. Per EMS report, patient found to have O2 sat <50% on RA, given Lasix 100mg IV and started on CPAP w/ improvement of O2 to 89%. Recent admit 05/27-06/01/17 for similar presentation, admitted initially to ICU on BIPAP at that time, found to have CHF exacerbation, s/p eval by Dr. Cid w/ whom she follows, plan for cardiac cath, however pt w/ anemia requiring transfusion and instead plan for further management as outpatient. On arrival tonight, BP 177/74, HR 90, O2 sat 100% on BiPAP, FiO2 60%. Temp 97. WBC normal, elevated neutrophil count. Creatinine 1.49, previously 1.44 on 06/01/17. Troponin negative. BNP 232. CXR with increasing airspace opacities in the right lung and persistent patchy opacities in the left lung. CBC/BMP: 06/06/17 0329 06/08/17 0534 Significant Findings Laboratory Tests Test 06/06/17 06/07/17 06/08/17 03:29 07:24 05:34 Red Blood Count 2.74 MIL/MM3 (4.00-5.30) Hemoglobin 8.3 GM/DL (11.6-15.3) Hematocrit 24.9 % (35.0-46.0) Mean Platelet Volume 6.9 FL (7.0-11.0) Neutrophils (%) (Auto) 70.5 % (16.0-70.0) Monocytes (%) (Auto) 11.0 % (0.0-8.0) Eosinophils (%) (Auto) 6.8 % (0.0-4.0) Lymphocytes # (Auto) 0.8 TH/MM3 (1.0-4.8) Eosinophils # (Auto) 0.5 TH/MM3 (0-0.4) Blood Urea Nitrogen 25 MG/DL (7-18) 21 MG/DL (7-18) 20 MG/DL (7-18) Creatinine 1.24 MG/DL 1.20 MG/DL 1.20 MG/DL (0.50-1.00) (0.50-1.00) (0.50-1.00) Estimat Glomerular Filtration 42 ML/MIN (>89) 43 ML/MIN (>89) 43 ML/MIN (>89) Rate Random Glucose 73 MG/DL (74-106) Carbon Dioxide Level 33.6 MEQ/L 33.0 MEQ/L (21.0-32.0) (21.0-32.0) Potassium Level 3.4 MEQ/L (3.5-5.1) Imaging Last Impressions Chest X-Ray 06/04/172120 Signed Impressions: Service Date/Time: Sunday, June 04, 2017 21:45 - CONCLUSION: Increasing airspace opacities in the right lung and persistent patchy opacities in the left lung. Moisés Youssef MD PE at Discharge GENERAL: with mild sob. CARDIOVASCULAR: Regular rate and regular rhythm with systolic murmur in aortic area. RESPIRATORY: basal crackles. GASTROINTESTINAL: Abdomen soft, non-tender, nondistended. Normal, active bowel sounds MUSCULOSKELETAL: Extremities with mild bilateral pedal edema. NEURO: Alert & Oriented x4 to person, place, time, situation. Moves all ext x4 Hospital Course 1. Respiratory Failure: Multifactorial-CHF; acute on chronic systolic CHF./ Pulm HTN. Diastolic. Echo 04/15/17 w/ EF 50-55%, Mod-Severe Pulm HTN 62mmHg and Aortic Stenosis. echo with EF 45% and mitral and aortic valve stenosis. continue with lasix and neb treatment- patient is on home oxygen. cardiology follow-up appreciated and recommended hospice since the patient is not a good candidate for valve repair; hospice will be consulted. 3. Renal Insufficiency: Acute on Chronic. improved. Monitor, caution w/ diuresis. 4. HTN: Continue PO meds including Coreg 12.5 mg twice a day and Norvasc 10 mg - hydralazine was added. 5. DM: Sliding scale w/ Accu-Cheks as well as basal insulin. 6. Hyperlipidemia: Continue Pravachol 7. Coronary artery disease: On Plavix 8. PVD: Pletal 9. DVT Prophylaxis: SCD/Teds. Pt Condition on Discharge: Guarded Discharge Disposition: Hospice/ Home Discharge Time: > 30 minutes Discharge Instructions DIET: Follow Instructions for: Heart Healthy Diet, Diabetic Diet Activities you can perform: Regular-No Restrictions Follow up Referrals: PCP Follow-up New Medications: Amlodipine (Norvasc) 10 Mg Tab 10 MG PO DAILY hypertension Days 30 Ref 0 TAB Changed Medications: Hydralazine (Hydralazine) 100 Mg Tab 50 MG PO Q6HR Take with meals Blood Pressure Management Days 30 Ref 0 TAB ( Changed from: BID) Continued Medications: Carvedilol (Carvedilol) 12.5 Mg Tab 12.5 MG PO BID #60 Ref 0 TAB Cilostazol (Cilostazol) 100 Mg Tab 100 MG PO BID INTERMITTENT CLAUDICATION Ref 0 TAB Clopidogrel (Plavix) 75 Mg Tab 75 MG PO DAILY Blood Clot Prevention #30 Ref 0 TAB Coenzyme Q10 (Ubidecarenone) (Co Q 10) 100 Mg Cap 200 MG PO DAILY Furosemide (Furosemide) 20 Mg Tab 20 MG PO DAILY pulmonary edema #30 Ref 0 TAB Insulin Glargine Inj (Lantus Inj) 1,000 Unit/10 Ml Vial 16 UNITS SQ HS Blood Sugar Management Ref 0 VIAL Levothyroxine (Synthroid) 175 Mcg Tab 175 MCG PO DAILY Thyroid #30 Ref 0 TAB Nitroglycerin SL (Nitrostat SL) 0.4 Mg Subl 0.4 MG SL DIRECTED 1 tablet under the tongue as needed for chest pain. Repeat every 5 minutes for a total of 3 DOSES or call 911 if NO relief. PRN CHEST PAIN #100 Ref 0 TAB.SL Potassium Chloride ER (Klor-Con 10) 10 Meq Tab 10 MEQ PO DAILY Electrolyte Replacement #30 Ref 0 TAB Pravastatin (Pravastatin) 80 Mg Tab 80 MG PO DAILY Cholesterol Management #30 Ref 0 TAB Saxagliptin (Onglyza) 5 Mg Tab 5 MG PO DAILY Blood Sugar Management #30 Ref 0 TAB Discontinued Medications: Amlodipine (Amlodipine) 10 Mg Tab 10 MG PO DAILY Blood Pressure Management #30 Ref 0 TAB Methyldopa (Methyldopa) 500 Mg Tab 500 MG PO BID Blood Pressure Management Ref 0 TAB Ranolazine ER 12 HR (Ranexa ER 12 HR) 500 Mg Tab 500 MG PO BID Chest Pain #60 Ref 0 TAB Alecia Waters MD Jun 08, 2017 08:42
[2017-06-08] MEDS: FUROSEMIDE 40 MG/4 ML VIAL IV PUSH SCH (09:25)
[2017-06-08] MEDS: CLOPIDOGREL 75 MG TAB PO SCH (09:26)
[2017-06-08] MEDS: PRAVASTATIN SOD 80 MG TAB PO SCH (09:26)
[2017-06-08] MEDS: SODIUM CHLORIDE 0.9% FLUSH 10 ML FLUSH IV FLUSH SCH (09:26)
[2017-06-08] MEDS: POTASSIUM CHLORIDE 10 MEQ CONTROLLED RELEASE TAB PO SCH (09:26)
[2017-06-08] MEDS: CARVEDILOL 12.5 MG TAB PO SCH (09:26)
--- NOTE | 2017-06-09 13:29 | PQ ---
Physician Query Response Document PATIENT: MERVAT ANDUJAR : 1940 ADMIT DATE: 06/04/2017 11:00 PM DISCH DATE: 06/08/2017 12:59 PM RESPONDING PROVIDER #: [email or web address] QUERY TEXT: Documentation Clarification Your help is requested in clarifying the following clinical documentation : RENAL INSUFFICIENCY : A CUTE ON CHRONIC Based on your medical judgment, can you further clarify which, if any, of the following this condit ion is intended to indicate: ?Acute Renal Failure (Acute Kidney Injury) ?Acute on Chronic Renal Failure (please indicate CRF stage) ?Chronic Kidney Disease or Chronic Renal Failure Stage ?Other Specify PLEASE CALL [facility] @ EXT [phone] FOR ASSISTANCE The patient's Clinical Indicators include: PER H 3. Renal Insufficiency: Acute on Chronic. ON 06/04/17: BUN=29, CREATININE=1.49, ESTIMATED GFR=34 ON 06/07/17 : BUN=21, CREATININE=1.2, ESTIMATED GFR=43 Query created by: Mayra Bone on 06/07/2017 9:12 AM RESPONSE TEXT: Chronic renal insufficiency- stage III Electronically signed by: Alecia Waters MD 06/09/2017 1:26 PM
== END 2017-06-08 12:59 | disposition hospice, home (50) | DRG 291 ==
LOC: NEPE 21:07 → NEDA 23:00 → HIMW 23:55 → HOCB 06-06 12:20 → HCIS 06-07 16:31
PROVIDERS: ADMIT Internal Medicine; ATTEND Internal Medicine
PROC: 5A09457 Assistance with Respiratory Ventilation, 24-96 Consecutive Hours, Continuous Positive Airway Pressure (ICD-10-PCS; principal; 2017-06-04)
DX: I13.0 Hypertensive heart and chronic kidney disease with heart failure and stage 1 through stage 4 chronic kidney disease, or unspecified chronic kidney disease (principal); J96.01 Acute respiratory failure with hypoxia; I50.43 Acute on chronic combined systolic (congestive) and diastolic (congestive) heart failure; N18.3 Chronic kidney disease, stage 3 (moderate); I27.2 Other secondary pulmonary hypertension; E11.22 Type 2 diabetes mellitus with diabetic chronic kidney disease; E78.5 Hyperlipidemia, unspecified; I25.10 Atherosclerotic heart disease of native coronary artery without angina pectoris; I73.9 Peripheral vascular disease, unspecified; M06.9 Rheumatoid arthritis, unspecified; E03.9 Hypothyroidism, unspecified; D64.9 Anemia, unspecified; I08.0 Rheumatic disorders of both mitral and aortic valves; Z79.4 Long term (current) use of insulin; Z86.011 Personal history of benign neoplasm of the brain; Z86.73 Personal history of transient ischemic attack (TIA), and cerebral infarction without residual deficits; Z87.891 Personal history of nicotine dependence; Z99.81 Dependence on supplemental oxygen
CPT/HCPCS: 36600; 71010; 80048; 80053; 82550; 82805; 82948; 83880; 84484; 85025; 93005; 93306; 94002; 94003; 94640; 99285; J1815; J1940